=== PATIENT | female | born 1985 | race Caucasian/White ===

== ENCOUNTER 2017-02-14 14:53 | Emergency (ER) | payer SELFPAY ==
[2017-02-14 15:50] VITALS: BP 116/73
--- NOTE | 2017-02-18 15:08 | UC ---
Latanya Roland Erika, scribed for Keri Parada DO on 02/14/17 at 1615 . General HPI - HPI Summary HPI Summary: Patient is a 31-year-old female presenting to [facility] with a CC of RLQ abdominal pain s/p . Patient reports that she had an emergency by Dr. Mckeon on 02/07/2017 after the fetus's heart rate started to drop, and she states the baby did not survive. She states she has had RLQ pain since then, which has not changed. Patient reports that she removed the steristrips from her incision site after they soaked through with fluid. Two days ago, patient developed vaginal bleeding. She states she has been bleeding a few hours/day and has been passing clots, up to golf-ball sized. Patient reports she has been fatigued and under a lot of stress. She denies any other symptoms, including fever, chills, dizziness, ear ache, sore throat, SOB, cough, chest pain, nausea , vomiting, diarrhea, decreased appetite, and myalgias. Patient reports that she has been unable to contact her OB-Merit System Director at [facility] because they no longer work there. She states she has a follow up appointment with Dr. Whiting next week. She denies PMHx. She denies FHx HTN, diabetes, CAD. Patient smokes 1/ 2 PPD. - History of Current Complaint Stated Complaint: POST C SECT/BLOOD CLOTS Time Seen by Provider: 02/14/17 15:08 Hx Obtained From: Patient Onset/Duration: Sudden Onset - s/p surgery, Lasting Weeks - 1 week, Still Present Timing: Constant Onset Severity: Moderate Current Severity: Moderate Pain Intensity: 7 Pain Location at: RLQ Associated Signs & Symptoms: Positive: Other - vaginal bleeding. Negative: Cough, Chest Pain, Dizziness, Diarrhea, Decreased Oral Intake, Fever, Nausea, SOB, Vomiting - Allergy/Home Medications Allergies/Adverse Reactions: Allergies Allergy/AdvReac Type Severity Reaction Status Date / Time No Known Allergies Allergy Verified 03/25/16 16:51 Home Medications: Home Medications NK [No Home Medications Reported] 02/14/17 [History Confirmed 02/14/17] PMH/Surg Hx/FS Hx/Imm Hx Endocrine History Of: Denies: Diabetes Respiratory History Of: Reports: Asthma - As a child. Psychological History Of: Reports: Anxiety, Depression, Bipolar Disorder Cancer History Of: Denies: Lung Cancer, Colorectal Cancer, Breast Cancer, Prostate Cancer, Cervical Cancer Other History Of: Negative For: HIV, Hepatitis B, Hepatitis C, Anticoagulant Therapy - Surgical History Surgical History: Yes Surgery Procedure, Year, and Place: urinary stents x 4, insertions and removal, - Family History Known Family History: Negative: Cardiac Disease, Hypertension, Diabetes - Social History Occupation: Unemployed Alcohol Use: None Substance Use Type: Heroin, Marijuana Substance Use Comment - Amount & Last Used: last used 13 months ago Smoking Status (MU): Heavy Every Day Tobacco Smoker Type: Cigarettes Amount Used/How Often: 1/2 pack Review of Systems Constitutional: Fatigue Skin: Negative Eyes: Negative ENT: Negative Respiratory: Negative Cardiovascular: Negative Gastrointestinal: Abdominal Pain - RLQ Genitourinary: Other - Vaginal bleeding Motor: Negative Neurovascular: Negative Musculoskeletal: Negative Neurological: Negative Psychological: Negative All Other Systems Reviewed And Are Negative: Yes Physical Exam Triage Information Reviewed: Yes Appearance: Well-Appearing, No Pain Distress, Well-Nourished Vital Signs: Initial Vital Signs Temp 98.9 F 02/14/17 15:38 Pulse 79 02/14/17 15:38 Resp 18 02/14/17 15:38 BP 116/73 02/14/17 15:38 Pulse Ox 98 02/14/17 15:38 Vital Signs Reviewed: Yes Eyes: Positive: Conjunctiva Clear. Negative: Discharge ENT: Positive: Hearing grossly normal. Negative: Muffled/hoarse voice Neck: Positive: Supple, Nontender Respiratory: Positive: Lungs clear, Normal breath sounds, No respiratory distress, No accessory muscle use Cardiovascular: Positive: RRR, No Murmur Abdomen Description: Positive: Other: - Tender RLQ. Incision is clean, dry, with no erythema, no swelling, no drainage and no dehiscence. Pelvic exam: Lots of blood in the vaginal vault coming from the os. Pt tender with the exam Bowel Sounds: Positive: Present Musculoskeletal Exam: Normal Neurological: Positive: Alert, Muscle Tone Normal Psychological Exam: Normal Psychological: Positive: Age Appropriate Behavior Skin Exam: Other - Warm, dry, normal color Re-Evaluation - Re-Evaluation First Eval Re-Evaluation Time: 17:05 Comment: Discussed need for transfer. Patient requests transfer by private car to the [facility]. Course/Dx - Differential Dx - Multi-Symptom Provider Diagnoses: vaginal bleeding, rlq pain of unknown virgilio - Physician Notifications Discussed Patient Care With: Kirsty OB-Merit System Director at 16:20 - call out to consult. They will call back. Kirsty OB-Merit System Director at 16:44 - called again for consult after no call was returned. Dr. Whiting (OB-Merit System Director) at 16:50 - Reports that he followed up with the patient and the emergency was due to patient using suboxone she bought on the street. Recommends transfer to the ED for stat H&H and ultrasound. GYMNASIUM TEACHER Dela Cruz for Dr. Reyes at 16:58 - states Dr. Reyes does not do OB and recommends speaking with Dr. Bashir. Left a message for Dr. Bashir at 17: 00 stating pt is a likely transfer to [facility]. Dr. Beck ([facility]) at 17:05 - accepts for transfer. Dr. Bashir at 17:34 - notified Dr. Bashir of patient's decision to go to the [facility]. Discharge - Discharge Plan Condition: Stable Disposition: AGAINST MEDICAL ADVICE Discharge Disposition Comment: To the [facility] ED by private car Referrals: Jere Washington,[facility] [Primary Care Provider] - The documentation as recorded by the Latanya sommer Erika accurately reflects the service I personally performed and the decisions made by me, Keri Parada DO.
== END 2017-02-14 17:27 | disposition left against medical advice (07) ==
LOC: UCEAST 14:53
DX: N93.8 Other specified abnormal uterine and vaginal bleeding (principal); Z53.21 Procedure and treatment not carried out due to patient leaving prior to being seen by health care provider
CPT/HCPCS: 81003; 84702; 99213; G0463

== ENCOUNTER 2018-03-20 03:27 | Emergency (ER) | payer MEDICAID ==
[2018-03-20] MEDS ORDERED: Clindamycin CAP* 150 MG ONE (04:04)
[2018-03-20] MEDS ORDERED: Clindamycin CAP* 150 MG PO ONE (04:31)
[2018-03-20 04:53] VITALS: BP 138/93
--- NOTE | 2018-03-20 07:08 | ED ---
José Miguel Roland Nilda, scribed for Gavin Vaz MD on 03/20/18 at 0445 . Skin Complaint - HPI Summary HPI Summary: This patient is a 32 year old F presenting to [facility] accompanied by mother with a chief complaint of constant erythematous, painful abscess on left upper arm for the past few days. Pt has Hx of IV drug abuse (currently Sonal). She states she was taken to [facility] s/p overdose 5-6 days ago. Pt notes she was kept at [facility] for 3 days where she was given IV abx since pt was found to have fever (104 F) and abscess. She notes she was to have surgery for abscess but was thrown out of hospital yesterday when she left building to smoke with my mother. The patient rates the aching pain 6/10 in severity. Symptoms aggravated by palpation and alleviated by ibuprofen. NKDA. LNMP is 4 days ago. - History of Current Complaint Chief Complaint: EDRashSkinAbscess Stated Complaint: ABSCESS ON LEFT ARM Hx Obtained From: Patient Hx Last Menstrual Period: 4 days ago Onset/Duration: Started Days Ago, Still Present Timing: Constant, Lasting Days Current Severity: Moderate Pain Intensity: 6 Pain Scale Used: 0-10 Numeric Skin Location: Arm - left upper arm Character: Swelling, Pain, Redness Aggravating Symptom(s): Touch Alleviating Symptom(s): Nothing Associated Signs & Symptoms: Fever Related History: Other: - IV drug abuse - Allergy/Home Medications Allergies/Adverse Reactions: Allergies Allergy/AdvReac Type Severity Reaction Status Date / Time No Known Allergies Allergy Verified 03/25/16 16:51 PMH/Surg Hx/FS Hx/Imm Hx Endocrine/Hematology History: Denies: Hx Anticoagulant Therapy, Hx Diabetes, Hx Thyroid Disease Cardiovascular History: Denies: Hx Congestive Heart Failure, Hx Deep Vein Thrombosis, Hx Hypertension , Hx Myocardial Infarction, Hx Pacemaker/ICD Respiratory History: Reports: Hx Asthma - As a child. Denies: Hx Chronic Obstructive Pulmonary Disease (COPD), Hx Lung Cancer, Hx Pneumonia, Hx Pulmonary Embolism GI History: Denies: Hx Gall Bladder Disease, Hx Gastrointestinal Bleed, Hx Ulcer, Hx Urosepsis History: Denies: Hx Kidney Stones, Hx Renal Disease Neurological History: Denies: Hx Dementia, Hx Migraine, Hx Seizures, Hx Transient Ischemic Attacks (TIA) Psychiatric History: Reports: Hx Anxiety, Hx Depression, Hx Bipolar Disorder, Hx Substance Abuse Denies: Hx Schizophrenia - Surgical History Surgery Procedure, Year, and Place: urinary stents x 4, insertions and removal, Infectious Disease History: Denies: History Other Infectious Disease, Traveled Outside the [place] in Last 30 Days - Family History Known Family History: Positive: Other - NONCONTRIBUTORY Negative: Cardiac Disease, Hypertension, Diabetes - Social History Alcohol Use: None Substance Use Type: Reports: Heroin, Marijuana Substance Use Comment - Amount & Last Used: states used 4 days ago Hx Tobacco Use: Yes Smoking Status (MU): Heavy Every Day Tobacco Smoker Type: Cigarettes Amount Used/How Often: 1/2 pack Review of Systems Positive: Fever Positive: Other - eythematous, painful abscess on left upper arm All Other Systems Reviewed And Are Negative: Yes Physical Exam - Summary Physical Exam Summary: Appearance: Well appearing, no pain distress Skin: warm, dry, reflects adequate perfusion, Track torres both arms. Area of redness on the radial surface on distal upper arm. Area of several track torres and slight induration in the AC area. Bedside US, per Dr. Vaz, reveals 0.5 cm area of fluid 1.5 cm deep in the left axilla that is not pulsatile. Cobblestoning of the tissues locally. Head/face: normal Eyes: EOMI, RONEL ENT: normal Neck: supple, non-tender Respiratory: CTA, breath sounds present Cardiovascular: RRR, pulses symmetrical Abdomen: non-tender, soft Bowel Sounds: present Musculoskeletal: normal, strength/ROM intact Neuro: normal, sensory motor intact, A&Ox3 Triage Information Reviewed: Yes Vital Signs On Initial Exam: Initial Vitals Temp Pulse Resp BP Pulse Ox 98.8 F 89 20 138/93 97 03/20/18 04:51 03/20/18 04:51 03/20/18 04:51 03/20/18 04:51 03/20/18 04:51 Vital Signs Reviewed: Yes Procedures - Procedure Summary Procedure Summary: I&D of abscess on left upper arm: 5 ccs lido 1%. Visualized with US. Cleaned with chlorhexidine and betadine. Site wouldnt aspirate. Sliced with 11 guage scalpel. Attempted aspiration again but still would not aspirate. - Incision and Drainage Site: left upper arm Anesthesia: Lidocaine Instrument(s): Scalpel, Needle Packing: Other - none. aspiration unsuccessful. Diagnostics - Vital Signs Vital Signs Temp Pulse Resp BP Pulse Ox 03/20/18 04:51 98.8 F 89 20 138/93 97 - Laboratory Lab Statement: Any lab studies that have been ordered have been reviewed, and results considered in the medical decision making process. - Additional Comments Diagnostic Additional Comments: Bedside US, per Dr. Vaz, reveals 0.5 cm area of fluid 1.5 cm deep in the left axilla that is not pulsatile. Cobblestoning of the tissues locally. Re-Evaluation - Re-Evaluation First Eval Change: Improved Course/Dx - Course Course Of Treatment: pt with heavy IV drug use, multitude of tract torres. Obvious cellulitis in the L upper arm confirmed on bedside US. There is a small area of free fluid in the AC area. Pt states she had "surgery" there, but she has no incision site. It's possible she had needle aspiration. No fever. I attempted to needle drain (without success) and open I&D. This is deeper and would not drain. I then attempted needle aspiration with real time US guidance. Area still would not drain. Peripheral IV access on this pt is impossible, with no unused peripheral veins. She is not ill appearing and had been hospitalized on abx for the cellulitis. She was loaded on Clindamycin and will be cont on same. Close f/u. Has pending admission to drug rehab (she injects synthetic amphetamines) in [place]. - Diagnoses Provider Diagnoses: IV drug abuse, Phlebitis, Cellulitis of left upper arm Discharge - Sign-Out/Discharge Documenting (check all that apply): Discharge/Admit/Transfer - Discharge Plan Condition: Good Disposition: HOME Prescriptions: Clindamycin Cap(NF) [Clindamycin Cap 300 mg Cap(NF)] 300 mg PO Q6H #30 cap Patient Education Materials: Cellulitis (ED), Phlebitis (ED) Referrals: [facility] [Outside] Additional Instructions: Do not use drugs by injection, especially in the site of infection. Return with increased redness, warmth, high fever, vomiting or other concerns. Warm compresses on the area every hour all day long. Go to drug rehabilitation when available. - Billing Disposition and Condition Condition: GOOD Disposition: HOME The documentation as recorded by the José Miguel sommerSenia accurately reflects the service I personally performed and the decisions made by me, Gavin Vaz MD.
== END 2018-03-20 04:53 | disposition home or self-care (01) ==
LOC: ED 03:27
DX: L02.414 Cutaneous abscess of left upper limb (principal); F19.10 Other psychoactive substance abuse, uncomplicated; I80.8 Phlebitis and thrombophlebitis of other sites; F17.210 Nicotine dependence, cigarettes, uncomplicated
CPT/HCPCS: 10060; 99282; A9270-GY

== ENCOUNTER 2018-06-13 16:46 | Inpatient (IN) | payer MEDICAID ==
--- NOTE | 2018-06-13 18:14 | ED ---
Lower Extremity - HPI Summary HPI Summary: This is scribe Alistair Kim documenting for attending Dr. Raul Lopez MD. This patient is a 33 year old F presenting to [facility] accompanied by a male with a chief complaint of left leg infection since 5 days ago. Pt reports she uses intravenous drugs in this foot. The patient rates the pain 7/10 in severity. Symptoms aggravated by movement of the foot. Patient reports severe edema of the left foot, erythema, erythema on her right hip, and difficulty ambulating. I, Dr. Lopez, personally performed the services described in this documentation as scribed in my presence and it is both accurate and complete. - History of Current Complaint Chief Complaint: EDExtremityLower Stated Complaint: LT FT ABSCESS Time Seen by Provider: 06/13/18 18:05 Hx Obtained From: Patient Hx Last Menstrual Period: 4 days ago Onset of Pain: Immediate Onset/Duration: Days - 4 Severity Currently: Severe Pain Intensity: 7 Pain Scale Used: 0-10 Numeric Timing: Constant Location: Is Discrete @ - left foot Associated Signs And Symptoms: Positive: Swelling, Redness Aggravating Factor(s): Standing, Ambulation, Weight Bearing - Allergies/Home Medications Allergies/Adverse Reactions: Allergies Allergy/AdvReac Type Severity Reaction Status Date / Time No Known Allergies Allergy Verified 06/13/18 18:45 Home Medications: Home Medications NK [No Home Medications Reported] 06/13/18 [History Confirmed 06/13/18] PMH/Surg Hx/FS Hx/Imm Hx Endocrine/Hematology History: Denies: Hx Anticoagulant Therapy, Hx Diabetes, Hx Thyroid Disease Cardiovascular History: Denies: Hx Congestive Heart Failure, Hx Deep Vein Thrombosis, Hx Hypertension , Hx Myocardial Infarction, Hx Pacemaker/ICD Respiratory History: Reports: Hx Asthma - As a child. Denies: Hx Chronic Obstructive Pulmonary Disease (COPD), Hx Lung Cancer, Hx Pneumonia, Hx Pulmonary Embolism GI History: Denies: Hx Gall Bladder Disease, Hx Gastrointestinal Bleed, Hx Ulcer, Hx Urosepsis History: Denies: Hx Kidney Stones, Hx Renal Disease Neurological History: Denies: Hx Dementia, Hx Migraine, Hx Seizures, Hx Transient Ischemic Attacks (TIA) Psychiatric History: Reports: Hx Anxiety, Hx Depression, Hx Bipolar Disorder, Hx Substance Abuse Denies: Hx Schizophrenia - Surgical History Surgery Procedure, Year, and Place: urinary stents x 4, insertions and removal, Infectious Disease History: No Infectious Disease History: Denies: History Other Infectious Disease, Traveled Outside the [place] in Last 30 Days - Family History Known Family History: Positive: Other - NONCONTRIBUTORY Negative: Cardiac Disease, Hypertension, Diabetes - Social History Alcohol Use: None Substance Use Type: Reports: Heroin, Marijuana Substance Use Comment - Amount & Last Used: states used 4 days ago Hx Tobacco Use: Yes Smoking Status (MU): Heavy Every Day Tobacco Smoker Type: Cigarettes Amount Used/How Often: 1/2 pack Review of Systems Positive: Decreased ROM - left foot, Edema - left foot Positive: Rash - left foot All Other Systems Reviewed And Are Negative: Yes Physical Exam - Summary Physical Exam Summary: Appearance: The patient is well-nourished in no acute distress and in no acute pain. Skin: The skin is warm and dry and skin color reflects adequate perfusion. Right foot is blistered and erythematous on the dorsal aspect with streaking usp up the anterior lower leg. She has an additional erythematous area over her RLQ which is likely abscess and another area on the dorsum of her right hand. HEENT: The head is normocephalic and atraumatic. The pupils are equal and reactive. The conjunctivae are clear and without drainage. Nares are patent and without drainage. Mouth reveals moist mucous membranes and the throat is without erythema and exudate. The external ears are intact. The ear canals are patent and without drainage. The tympanic membranes are intact. Neck: The neck is supple with full range of motion and non-tender. There are no carotid bruits. There is no neck vein distension. Respiratory: Chest is non-tender. Lungs are clear to auscultation and breath sounds are symmetrical and equal. Cardiovascular: Heart is tachycardic. There is no murmur or rub auscultated. There is no peripheral edema and pulses are symmetrical and equal. Abdomen: The abdomen is soft and non-tender. There are normal bowel sounds heard in all four quadrants and there is no organomegaly palpated. Musculoskeletal: There is no back tenderness noted. Extremities are non-tender with full range of motion. There is good capillary refill. There is no calf tenderness elicited. Right foot is swollen and erythematous. Neurological: Patient is alert and oriented to person, place and time. The patient has symmetrical motor strength in all four extremities. Cranial nerves are grossly intact. Deep tendon reflexes are symmetrical and equal in all four extremities. She is in constant motion, picking at her skin and generally irritable. Psychiatric: The patient is anxious and easily angered. Triage Information Reviewed: Yes Vital Signs On Initial Exam: Initial Vitals Temp Pulse Resp BP Pulse Ox 100.8 F 115 15 137/80 97 06/13/18 17:01 06/13/18 17:01 06/13/18 17:01 06/13/18 17:01 06/13/18 17:01 Vital Signs Reviewed: Yes Procedures - Central Line Right Jugular Central Line Lumen: triple Central Line Procedure: betadine prep, sterile drapes applied, sterile dressing applied Central Line Position: internal jugular (R) Anesthesia: Lidocaine cc's of anesthesia: 1 Complications: none Central Line Post Position: sutured, good blood return - Intubation Intubation Method: orotracheal Tube Size (cm): 7.5 Medications: Succinylcholine Breath Sounds after Intubation: equal Intubation Complications: no complications Diagnostics - Vital Signs Vital Signs Temp Pulse Resp BP Pulse Ox 06/13/18 17:01 100.8 F 115 15 137/80 97 - Laboratory Result Diagrams: 06/14/18 06:28 06/14/18 06:28 Lab Statement: Any lab studies that have been ordered have been reviewed, and results considered in the medical decision making process. - Ultrasound No standard instances Ultrasound Interpretation Completed By: Radiologist - At the interface of the subcutaneous tissue plane and extensor tendon sheaths there is a 3.2 x 1.5 x 3.8 cm loculated heterogeneous echogenicity complex fluid collection with mild marginal hyperemia most consistent with an early abscess collection given the clinical context. #. Soft tissue edema throughout the visualized foot most consistent with cellulitis given the clinical context. ED Physician has reviewed this report Lower Extremity Course/Dx - Course Course Of Treatment: Ms Doyle presented to the emergency department with obvious cellulitis and probable abscesses. She met septic criteria as she was febrile and tachycardic. She had a difficult and complicated course in the emergency department. She has a history of PTSD and secondary agoraphobia as well as anxiety and depression. She admits to using IV MDMA on a daily basis and then using IV benzodiazepines to sleep at night. The IV sympathomimetic is at least contributing to if not completely responsible for her tachycardia. It also has her in nonstop motion. She is constantly picking at her skin and moving with jerking motions randomly. She was unable to voluntarily hold still. She was also quite labile and quick to anger. The nursing staff had a great deal of difficulty initiating peripheral IV and she "fired" her primary nurse. Eventually an IV was established in her right wrist and blood was drawn. Fluids and antibiotics were ordered and her white blood cell count returned at 15. At this point she definitely meets septic criteria although I'm still not clear whether her tachycardia is from the drugs or not. The hospitalists were consulted for admission and requested a central line. She was given Ativan for her anxiety and Dilaudid for the pain in her foot but was unable to hold still enough to have an IJ safely placed. She absolutely refused to have a femoral line. She did want a right EJ stating that that's the only vein she can still use reliably. She was unable to hold still enough to consider an EJ to be a safe procedure also. She was given IV Haldol which did allow her to relax a bit but she still continued with involuntary twitching and random movement. Although her vital signs did not vary, it became very concerning that we were unable to give her fluids and antibiotics appropriately for her burgeoning sepsis and that she was not in control of herself enough to hold still. After mild sedating she became even more difficult to deal with as she lost what little rationality she had had. I consulted with Dr. Ibarra and and the nursing supervisor stave finishing Eugenia Vergara who is a nurse practitioner and we agreed that that it was unconscionable to allow her to continue without fluids and antibiotics and that, because of the drugs and her underlying psychiatric issues she was unable to cooperate with therapy, and therefore the decision was made to intubate and sedate her. It was my estimation that conscious sedation would not of solve the problem of her constant movement and agitation. She was given 20 mg of etomidate IV and this made no difference in her condition whatsoever. Therefore she was given succinylcholine 100 mg IV and within a few minutes achieved paralysis. She was easily intubated subsequent to that. The paralytic wore off within 2-3 minutes and in spite of bolusing and starting a drip of propofol she was again back to her baseline of constant movement and agitation although she was clearly sedated. She was therefore given additional succinylcholine for the placement of the IJ which was placed under aseptic conditions. She was turned over to Dr. Ibarra with chest x-ray pending to check for ET tube placement. Additionally the IJ line had been inserted to 16 cm and I was concerned that that may be in her right atrium. She had been kept on a monitor for the procedure and there was no ectopy. She was finally receiving IV fluids and antibiotics when transported to the ICU. - Diagnoses Provider Diagnoses: Cellulitis and abscess of foot, Sepsis affecting skin, Sympathomimetic adverse reaction, IVDU (intravenous drug user) - Physician Notifications Discussed Care Of Patient With: Martin Ibarra Time Discussed With Above Provider: 19:00 Instructed by Provider To: Admit As Inpatient - Critical Care Time Critical Care Time: 75-104 min - Much of the time was spent counseling the patient to attempt to get her to agree to the various therapies. Discharge - Sign-Out/Discharge Documenting (check all that apply): Patient Departure - admit - Discharge Plan Condition: Good Disposition: ADMITTED TO [facility] - Billing Disposition and Condition Condition: GOOD Disposition: Admitted to [facility]
--- NOTE | 2018-06-13 19:26 | RAD ---
Indication: IV drug user with LEFT foot swelling for 3 days. Assess for abscess. Comparison: No relevant prior exams available on the [facility] PACS for comparison.. Technique: Musculoskeletal ultrasound. Ultrasound of the volar aspect of the foot corresponding with the region of swelling.. REPORT AND IMPRESSION: #. At the interface of the subcutaneous tissue plane and extensor tendon sheaths there is a 3.2 x 1.5 x 3.8 cm loculated heterogeneous echogenicity complex fluid collection with mild marginal hyperemia most consistent with an early abscess collection given the clinical context. #. Soft tissue edema throughout the visualized foot most consistent with cellulitis given the clinical context.
[2018-06-13 20:08] LABS: Urine Appearance Cloudy; Urine Blood Negative (Negative); Urine Color Amber; Urine Ketones 1+ (Negative); Urine Protein 2+(100 mg/dL) (Negative); Urine Red Blood Cell 3+(>10/hpf) (Absent); Urine Specific Gravity 1.019 (1.010-1.030); Urine Urobilinogen Positive (Negative); Urine White Blood Cell 3+(>20/hpf) (Absent)
[2018-06-13 20:44] LABS: ABS Basophils 0.1 10^3/ul (0-0.2); ABS Eosinophils 0.1 10^3/ul (0-0.6); ABS Lymphocytes 2.3 10^3/ul (1.0-4.8); ABS Monocytes 1.1 10^3/ul (0-0.8); ABS Nucleated RBC 0 10^3/ul; Eosinophil % 0.8 % (0-6); Hematocrit 37 % (35-47); Hemoglobin 12.3 g/dl (12.0-16.0); Lymphocyte % 14.9 % (25-47); Mean Corpuscular HGB Conc 34 g/dl (31-36); Mean Corpuscular Hemoglobin 29 pg (27-31); Mean Corpuscular Volume 87 fL (80-97); Nucleated Red Blood Cells % 0; Platelet Count 209 10^3/ul (150-450); Red Cell Distribution Width 15 % (10.5-15); White Blood Count 15.6 10^3/ul (3.5-10.8)
[2018-06-13 20:59] LABS: INR 1.06 (0.77-1.02)
[2018-06-13] MEDS ORDERED: Cefepime(*) 1 GM in NS 0.9% 50 ML* 50 ML IVPB ONE (21:03)
[2018-06-13] MEDS ORDERED: Vancomycin(*) 1,000 MG in NS 0.9% 250 ML* 250 ML IVPB ONE (21:03)
[2018-06-13] MEDS ORDERED: NS 0.9% 50 ML* 50 ML ONE (21:11)
[2018-06-13] MEDS ORDERED: Cefepime 1 GM in Dextrose(*) 1 GM/50 ML BAG IV ONE (21:16)
[2018-06-13] MEDS ORDERED: LORazepam INJ* 2 MG/ML 1 ML VIAL IV PUSH ONE ×2 (21:34→21:41)
[2018-06-13] MEDS ORDERED: HYDROmorphone INJ* 1 MG/ML CARPUJECT SYRINGE IV SLOW PU PRN (21:34)
[2018-06-13] MEDS ORDERED: diPHENhydraMINE IV* 50 MG/ML 1 ml VIAL (BENADRYL) IV ONE (21:40)
[2018-06-13] MEDS ORDERED: Vancomycin per Pharmacy* NOTE FOLLOW UP PRN (22:01)
[2018-06-13] MEDS ORDERED: LORazepam INJ* 2 MG/ML 1 ML VIAL IM ONE (22:16)
[2018-06-13] MEDS ORDERED: NS 0.9% 1000 ML*IV.FLUID IV ONE (22:21)
[2018-06-13] MEDS ORDERED: Vancomycin(*) 1,250 MG in NS 0.9% 250 ML* 250 ML IVPB ONE (22:30)
[2018-06-13] MEDS ORDERED: Haloperidol INJ IV/IM* 5 MG/ML AMP IV SLOW PU ONE (23:02)
[2018-06-13] MEDS: Cefepime 2 GM in Dextrose(*) 2 GM/50 ML BAG IV SCH (23:30)
[2018-06-13] MEDS ORDERED: Etomidate* 2 MG/ML 20 ML VIAL (40 MG) ONE (23:40)
[2018-06-13] MEDS ORDERED: Succinylcholine* 20 MG/ML 10 ML VIAL ONE (23:40)
[2018-06-13] MEDS ORDERED: Rocuronium* 10 MG/ML VIAL ONE (23:40)
[2018-06-13] MEDS ORDERED: Propofol* 100 ML ONE (23:58)
[2018-06-14] MEDS: Propofol* 100 ML IV SCH ×7 (00:45→21:00)
--- NOTE | 2018-06-14 01:11 | HP ---
CC: Dr. Guerra* HISTORY AND PHYSICAL: DATE OF ADMISSION: 06/13/18 PRIMARY CARE PROVIDER: None. ATTENDING PHYSICIAN WHILE IN THE HOSPITAL: Dr. Martin Ibarra* (report dictated by Fady Bacon NP). CONSULTING ORTHOPEDIST: Dr. Guerra. CHIEF COMPLAINT: Left ankle swelling. HISTORY OF PRESENT ILLNESS: Mrs. Doyle is a 33-year-old female patient who has a history of bipolar, depression, anxiety. She has a history of IV drug use. She freely admits that she uses IV MDMA on a daily basis. She comes in to our emergency department today stating that 4 or 5 days ago, she tried shooting up in her left ankle. Subsequently then, it was red and then over the last 4 or 5 days, it has progressively gotten worse and last night, it was significantly worse than today. The patient does have agarophobia she says and she was fearful for her to come out to the ER to be evaluated, but the pain became too much. The ankle was swollen, red, hot. She was having trouble dorsiflexing and plantarflexing and doing inversion and eversion. She said that it was painful to even move her toes. She was stating that the swelling was just getting too much and it was too painful and she was having fevers and chills. She also noted that she developed a what she describes as it looks like another abscess to her right abdominal wall. She came into the emergency department today. She was evaluated. In the ED, it was noted that she did appear to be septic. The ultrasound did exhibit an abscess. We were asked to evaluate for admission because of the sepsis and the infection. She denied having any chest pain, shortness of breath, or any nausea or vomiting. PAST MEDICAL HISTORY: Significant for: 1. Bipolar. 2. Depression. 3. Anxiety. 4. Agarophobia. PAST SURGICAL HISTORY: She has had ureteral stent placements. She has had I and Ds in the past. MEDICATIONS: Home meds are denied, although she does state that she gets 2 mg of Xanax off the streets. ALLERGIES TO MEDICATIONS: Include no known drug allergies. FAMILY HISTORY: Her father had hypertension, hyperlipidemia and her mother is healthy. SOCIAL HISTORY: She does smoke cigarettes. She does smoke marijuana. She injects MDMA on a daily basis. She does not drink alcohol. Surrogate decision maker is her father. REVIEW OF SYSTEMS: There is a documented fever here. She denies having any significant weight change. No double vision. No ear discharge. No rhinorrhea. No sore throat. No thyroid enlargement. She denies having any chest pain. There is no orthopnea. There is no nocturnal dyspnea. She denies having any abdominal pain. There was no nausea, no vomiting, no dysuria, no frequency, no seizure, no loss of consciousness, no pruritus and no skin ulcerations. Review of 14 systems was completed, all others negative. PHYSICAL EXAMINATION GENERAL: At this time, Mrs. Doyle is a 33-year-old female patient. She is chronically ill appearing. She appears to be older than state age. VITAL SIGNS: Blood pressure 137/80, pulse of 115, respirations 15, and O2 sat 97%, temperature of 100.8. HEENT: Head is atraumatic and normocephalic. Eyes: EOMs are intact. Sclerae anicteric and not pale. Throat: Oral mucosa appears to be dry. No oropharyngeal erythema. NECK: Supple. LUNGS: Clear to auscultation bilaterally. No wheezes, rales, or rhonchi. HEART: Sounds S1, S2 at regular rate and rhythm. No murmurs, rubs, or gallops. ABDOMEN: Soft. It was flat, nontender. Bowel sounds were present. EXTREMITIES: Pulses were 2+. The pedal pulse on the right foot was dopplerable. Sensation and CSM checks were intact. At this point, she is unable to plant and dorsiflex due to discomfort and pain. She is unable to flex and extend the toes as well due to swelling. NEUROLOGICAL: The patient is awake, alert, and oriented x3. There is no gross focal deficit. SKIN: Grossly intact. DIAGNOSTIC STUDIES/LAB DATA: Labs revealed WBC of 15.6, RBC of 4.20, hemoglobin 12.3, hematocrit 37, platelet count of 209. INR 1.06, PTT of 29.7. Sodium 136, potassium pending, chloride of 104, bicarb 24, BUN 7, creatinine of 0.54, glucose 117, lactate 1.1, calcium 8.8. Total bili 0.9, ALT 12, . Troponin was 0.03. CRP 154. Beta-hCG is pending. Albumin was 3.6. Urine showed 2+ protein, 1+ ketones, 2+ leukocyte esterase, 3+ wbc's. She had a soft tissue ultrasound, which showed at the interface of subcutaneous tissue plane and extensor tendon sheath, there is a 3.2 x 1.5 x 3.8 cm loculated heterogenous echogenicity complex fluid collection with the mild marginal hyperemia most consistent with an early abscess collection given this clinical context. Soft tissue swelling throughout the visualized foot, most consistent with cellulitis given the clinical context. Old medical records were reviewed. ASSESSMENT AND PLAN: Mrs. Doyle is a 33-year-old female patient coming into the emergency department today with complaints of a red, swollen left ankle. Evaluation found to be septic. She will be admitted under inpatient status for: 1. Sepsis secondary to cellulitis, left ankle abscess, possible septic joint. I did touch base with Dr. Guerra. I explained to him the patient's situation. He will be evaluating the patient tomorrow first thing in the morning for incision and drainage. I did order an MRI, which will be done first thing in the morning as well. We will give the patient 30 cc/kg of fluid. We will also give the patient cefepime and vanco. I did explain to the patient that given the fact that she has waited this long to treat the infection, she may have permanent damage to that joint. I also explained to her that again, the sepsis is quite severe. I have explained to her that I am concerned for possible endocarditis given the fact she has another abscess to the right side of her stomach. She said she did not try shooting up there, so I have also ordered an echo and blood cultures. Unfortunately, we are having a hard time with IV access on this patient. We are unable to get blood cultures. I am requesting the ED place the central line, so that we can get access to the patient, give her the appropriate antibiotics, which I have not been given yet and bolus her appropriately. Fortunately, she is not in septic shock, but she is certainly septic. As soon as, we have appropriate IV access, we will certainly give 30 cc /kg of fluid, normal saline though will then be given at 125 an hour. I will give the patient vancomycin and cefepime. 2. History of anxiety. I will continue with Ativan p.r.n. 3. History of bipolar, depression. We will need to establish a primary care physician for her, but for the time being, we will continue with supportive care. 4. History of agarophobia. Continue with supportive care. 5. DVT prophylaxis. I have ordered heparin subcu. 6. Code status. Full code. 7. Fluids, electrolytes, and nutrition. She is n.p.o. diet. TIME SPENT: Time spent on the admission was 60 minutes, greater than half the time was spent [id number] with the patient obtaining my history and physical, other half time was spent going over the plan of care with the patient and implementing the plan of care. I did discuss the plan of care with my attending, Dr. Ibarra, he is in agreement. FADY BACON, CHRISTY [id number]/[facility] #: [id number] MTDKelly
[2018-06-14] MEDS ORDERED: HYDROmorphone INJ* 0.5 MG/0.5 ML SYRINGE ONE (02:18)
[2018-06-14] MEDS: fentaNYL PCA* 20 ML PCA SCH (02:28)
[2018-06-14] MEDS: LORazepam INJ* 2 MG/ML 1 ML VIAL IV PUSH PRN (02:28)
[2018-06-14] MEDS: NS 0.9% 1000 ML* 1,000 ML IV SCH ×2 (02:39→18:08)
[2018-06-14] MEDS: Chlorhexidine MOUTHWASH 0.12%* 15 ML UDC TOPICAL SCH ×7 (02:51→23:49)
[2018-06-14] MEDS: Ondansetron INJ* 2 MG/ML VIAL IV SCH ×7 (04:43→21:38)
[2018-06-14] MEDS: Heparin VIAL(*) 5000 UNITS/ML VIAL (FIVE THOUSAND) SUBCUT SCH ×4 (04:43→21:38)
--- NOTE | 2018-06-14 05:31 | PN ---
Progress Note - Progress Note Date of Service: 06/14/18 Note: ED was unable to obtain stable vascular access after 7hours. Initially, a small peripheral IV was obtained in the hand, but this was tenuous and failed prior to admission. Other peripheral access was unobtainable 2nd mixture of intravascular volume depletion and poor venous access sites 2nd chronic IV drug abuse/addiction. No [place] qualified IV nurse was available in-house. Dr Lopez ED made earnest effort to obtain central access via an IJ. However, despite sedating Mrs Doyle to the point she was asleep was ineffective. As soon as she was attempted to be prepped with betadyne, she would flail and become unable to be safely controlled for the procedure. 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 I discussed the requirement of this with her male friend in cindy terms who expressed understanding and agreed with proceeding. As such, Dr Lopez obtained an airway followed by R IJ access. Her fluid bolus & IV ABXs were then able to be promptly initiated and she was transferred to the ICU. Once in the ICU, her ET tube required advancement by 1cm and her R IJ tip was significantly intra-cardiac. Via sterile technique, her triple lumen catheter sutures were clipped. It was withdrawn by ~4cm and re-sutured. Recheck CXR confirmed appropriate placement of ET, R IJ, & NG. Critical care time: 35minutes
[2018-06-14] MEDS: Vancomycin(*) 1,000 MG in NS 0.9% 250 ML* 250 ML IVPB SCH ×4 (06:13→23:53)
[2018-06-14 06:43] LABS: ABS Basophils 0 10^3/ul (0-0.2); ABS Eosinophils 0.2 10^3/ul (0-0.6); ABS Lymphocytes 1.9 10^3/ul (1.0-4.8); ABS Monocytes 0.7 10^3/ul (0-0.8); ABS Neutrophils 7.6 10^3/ul (1.5-7.7); ABS Nucleated RBC 0 10^3/ul; Eosinophil % 1.9 % (0-6); Hematocrit 31 % (35-47); Hemoglobin 10.7 g/dl (12.0-16.0); Lymphocyte % 18.5 % (25-47); Mean Corpuscular HGB Conc 34 g/dl (31-36); Mean Corpuscular Hemoglobin 30 pg (27-31); Mean Corpuscular Volume 87 fL (80-97); Mean Platelet Volume 9.9 um3 (7.4-10.4); Nucleated Red Blood Cells % 0; Platelet Count 153 10^3/ul (150-450); Red Blood Count 3.61 10^6/ul (4.00-5.40); Red Cell Distribution Width 15 % (10.5-15); White Blood Count 10.5 10^3/ul (3.5-10.8)
[2018-06-14 06:48] LABS: INR 1.08 (0.77-1.02)
[2018-06-14 07:00] LABS: EGFR Non-African American 152.6 (>60)
--- NOTE | 2018-06-14 07:43 | RAD ---
INDICATION: Intubation central venous catheter placement. COMPARISON: Comparison is made with a prior chest x-ray study from October 01, 2016. TECHNIQUE: A portable view of the chest was obtained. FINDINGS: The patient is status post intubation. The endotracheal tube tip projects over the midline at the level of the clavicular heads. There is a central venous catheter entering from the right jugular approach. The catheter tip projects overlying the right atrium. There is a nasogastric tube which demonstrates normal course. The catheter tip projects below the left hemidiaphragm in the left upper quadrant. The heart is within normal limits in size. The lungs are clear. No pleural effusion or pneumothorax is seen. IMPRESSION: STATUS POST INTUBATION, CENTRAL VENOUS AND NASOGASTRIC TUBE PLACEMENTS. CLEAR LUNGS, NO EVIDENCE FOR PNEUMOTHORAX.
--- NOTE | 2018-06-14 08:02 | RAD ---
INDICATION: Check ET NG and central line placement. COMPARISON: Comparison is made with a prior study from approximately 3 hours earlier. TECHNIQUE: A portable view of the chest was obtained. FINDINGS: The patient is status post intubation. The endotracheal tube tip projects over the midline at the level of the clavicular heads and appears unchanged. There is a nasogastric tube which demonstrates normal course. The catheter projects in the left upper quadrant and off the film. There is a central venous catheter present on the right side. The catheter has been pulled back slightly. The catheter tip projects over the region of the superior vena cava just proximal to the right atrium. The heart is within normal limits in size. The lungs are clear. No pleural effusion is seen. IMPRESSION: THE PATIENT'S CENTRAL LINE HAS BEEN PULLED BACK SLIGHTLY, THERE IS OTHERWISE NO SIGNIFICANT CHANGE FROM THE PRIOR STUDY. R1
--- NOTE | 2018-06-14 09:26 | CONS ---
CONSULTATION REPORT: DATE OF CONSULT: 06/14/18 HISTORY OF PRESENT ILLNESS: Mary came in last night. She is a 33-year-old female who had been injecting IV drugs. She missed in her left foot, developed a huge abscess primarily over the dorsal aspect somewhere lasting for the last 3 to 4 days. She does have a history of bipolar depression and anxiety as well. Evidently in the emergency room, they had difficulty getting IV access and then during a period of time when the patient was not closely observed, perhaps there was an attempt to inject further drugs. At any rate the IV access was lost because of the patient's noncompliance. She required intubation and a central line being placed. She is currently intubated in the ICU and will need to have aggressive debridement of a large abscess on her left ankle area. She did show signs of sepsis on admission to the emergency room. The patient, as far as we know, has a history of bipolar, depression, anxiety, and agoraphobia. She has been largely healthy as far as we know, we are not certain if there are any prescription of home medications at this point in time and also it is not clear that she has any allergies to medications. Only salesperson burial needs currently for the patient is her boyfriend. He claims that he has been trying to call her mother with which she is estranged, but that the mother is not answering the phone. There is no other known family per the only contact we have and that is the boyfriend. PHYSICAL EXAM: Mary is intubated, overall appears to be relatively healthy female in terms of height and weight and general appearance. Her left foot is massively swollen over the dorsum up to above the ankle level. There is some mild cellulitis also, but mostly a large fluid collection with some early tenting of the skin over the dorsal aspect where it appears she may have had a small puncture wound. The foot itself is warm, we cannot determine the sensation at this time. Radiographs are reported to show some gas in the soft tissue. No evidence of bone lysis. The patient with a large abscess left foot presumably self inflicted through IV drug abuse lasting 3 to 4 days, but certainly coming to a head now. She is admitted and intubated with some signs of sepsis, but overall in stable medical condition currently and the plan at this point will be an irrigation debridement of the left foot. I have explained this to the boyfriend and he has been the one that has been consenting to treatment thus far. [id number]/[facility] #: [id number] AMIRA
--- NOTE | 2018-06-14 09:46 | RAD ---
INDICATION: Infection left ankle pain and swelling. COMPARISON: Correlation is made with a prior soft tissue ultrasound of the left ankle and foot. TECHNIQUE: Axial, sagittal and coronal T1 and T2-weighted images of the left ankle were obtained. FINDINGS: There is diffuse soft tissue swelling which is most prominent on the long the dorsal lateral aspect of the foot and ankle. There is a complex fluid collection present along the dorsal lateral aspect of the midfoot superficial to the extensor digitorum tendons in the subcutaneous tissues. This measures 3.7 x 2.2 x 2.0 cm and would be most consistent with an abscess. There is a smaller simple fluid collection located more proximal associated with the extensor digitorum muscle and tendons measuring 1.7 x 0.9 cm in size. There is a small effusions within the talocrural and subtalar joints. No bone marrow edema or significant focal osseous abnormality is seen. The deltoid, calcaneal fibular, anterior and posterior tibiofibular and talofibular ligaments appear intact. The plantar fascia appears to be within normal limits. IMPRESSION: 1. DIFFUSE SOFT TISSUE SWELLING MOST CONSISTENT WITH CELLULITIS. 2. THERE IS A COMPLEX FLUID COLLECTION PRESENT ALONG THE DORSAL LATERAL ASPECT OF THE MIDFOOT DESCRIBED MOST CONSISTENT WITH AN ABSCESS. 2. THERE IS A SMALLER SIMPLE FLUID COLLECTION ASSOCIATED WITH THE EXTENSOR DIGITORUM MUSCLE AND TENDON POSSIBLY REPRESENTING TENOSYNOVITIS OR A SMALLER ABSCESS.
[2018-06-14] MEDS: Pantoprazole IV* 40 MG IV SCH (09:57)
[2018-06-14] MEDS ORDERED: fentaNYL* 50 MCG/ML 5 ML VIAL (250 MCG VIAL) ONE (10:21)
[2018-06-14] MEDS ORDERED: Midazolam* 1 MG/ML 5 ML VIAL (5 MG) ONE (10:21)
[2018-06-14] MEDS: Cefepime 2 GM in Dextrose(*) 2 GM/50 ML BAG IV SCH ×2 (10:28→21:38)
[2018-06-14] MEDS ORDERED: Bupivacaine 0.5% PF 10 ML VIAL INJ ONE ×2 (10:38→10:46)
[2018-06-14] MEDS ORDERED: Phenylephrine INJ* 10 MG/ML 1 ML VIAL (10 MG) ONE (11:44)
--- NOTE | 2018-06-14 12:15 | OP ---
Operative Report - Blank - Operative Report Date of Operation: 06/14/18 Note: PATIENT: Mary Doyle DATE OF : 1985 DATE OF SURGERY: 06/14/2018 SURGEON: Dalton Wolff MD SURGICAL AIDES TEACHER: Jerome Guerra MD ANESTHESIOLOGIST: Per Guadarrama MD PREOPERATIVE DIAGNOSIS: Left foot soft tissue abscess and infection POSTOPERATIVE DIAGNOSIS: Left foot soft tissue abscess and infection OPERATION: Left foot irrigation and debridement ANESTHESIA: GETA IMPLANTS: none TOURNIQUET TIME: Less than 1 hour with a well-padded thigh tourniquet at 250mmHg SPECIMENS: Culture swabs to micro ESTIMATED BLOOD LOSS: minimal COMPLICATIONS: none STATUS: Stable from the operating room to the recovery room and then back to the ICU. INDICATIONS FOR PROCEDURE: Mary is an IVDU who injected into the left foot and developed an abscess and deep soft tissue infection. Both operative and nonoperative alternatives were discussed with the mom since the patient was intubated and sedated. Discussed risks of surgery included, but were not limited to, persistent or worsening infection, wound problems, nerve injury, neuroma, RSD, persistent symptoms, blood clot, failure of the surgery, need for further surgery, and even the remote chance of catastrophic complication, including loss of limb. DESCRIPTION OF PROCEDURE: The patient was seen in the ICU and informed written consent was obtained from the mother. The appropriate extremity was marked. The patient was then brought to the operating room and carefully positioned on the operating room table. Anesthesia was induced. All bony prominences were padded with great care. A well -padded thigh tourniquet was placed. A chlorhexidine based pre-scrub was performed followed by a chloraprep prep and drape in standard sterile fashion. A surgical safety pause was then conducted in which we confirmed the appropriate patient, extremity, planned procedure, availability of equipment, indication and administration of antibiotics, and DVT prophylaxis in the form of a compression boot on the non-surgical extremity. We began by gravity exsanguination and inflated the tourniquet. A 12 cm longitudinal incision was made centered over the abscess on the dorsum of the foot. Gross pus was quickly encountered. Culture swabs were sent to microbiology. We then incised through the subcutaneous tissue and through the dorsal fascial layer to expose the deep structures, including the tendons and muscles. All purulent material was sharply excised with a 15 blade scalpel. All remaining nonviable tissue was also sharply excised with a 15 blade scalpel. Once all infected-looking tissue was excised, the wound was copiously irrigated. The wound was then closed loosely with 3-0 Prolene sutures in a vertical mattress fashion. A Othello drain was placed to drain the wound. A sterile dressing was then applied followed by a splint with the ankle in a neutral position. The patient was then transferred back to the ICU. There were no complications. All needle and sponge counts were correct at the end of the case. ATTESTATION: I attest I was present and scrubbed and performed the critical portions of the procedure myself. POSTOPERATIVE PLAN: Mary will continue on antibiotics per the infectious disease service. We will plan on removing the drain in a couple of days.
[2018-06-14] MEDS: KCL 20 MEQ/100 ML IVPREMIX* 20 MEQ/100 ML BAG IV SCH ×2 (12:23→15:01)
--- NOTE | 2018-06-14 14:42 | PN ---
Progress Note - Progress Note Date of Service: 06/14/18 - [facility] update Note: Pt was seen and examined multiple timesthrough out the day. Case discussed with admitting physician Dr Ibarra Pt is 33 y o f with h/o bipolar disorder, anxiety/depression, IVDA, uses MDMA daily. Pt was admitted last night for sepsis sec to cellulitis and left foot abscess. Pt was agitated, restless in ED, was not complaint with therapy, peripheral access could not be obtained sec to poor peripheral veins due to IVDU. She has needed CVC for abx, IVF. Pt needed sedation to achieve this and was intubated for airway protection. She had IJ placed, was initiated on broad spectrum abx. Blood cultures couldnot be sent from ED prior to initiation of abx due to inability to access veins due to chronic IVDU Surgery was consulted and she underwent I&D today with drainage of left foot abscess. Patient remains intubated, sedated on propofol and Fentanyl. She is hemodynamically stable however with hypothermia Active Medications Generic Name Dose Route Start Last Admin Trade Name Freq PRN Reason Stop Dose Admin Acetaminophen 650 mg 06/13/18 21:34 Tylenol Tab* PO Q4H PRN FEVER/PAIN Chlorhexidine Gluconate 15 ml 06/14/18 01:00 06/14/18 12:23 Peridex Mouth Wash 0.12%* TOPICAL 15 ml Q4H CHERYL Administration Heparin Sodium (Porcine) 5,000 units 06/13/18 22:00 06/14/18 06:18 Heparin Vial(*) SUBCUT Not Given Q8HR CHERYL Hydromorphone HCl 1 mg 06/14/18 03:00 Dilaudid Inj* IV SLOW PU Q4H PRN PAIN Cefepime HCl 2 gm in 50 mls @ 100 mls/hr 06/13/18 22:00 06/14/18 10:28 Maxipime 2 Gm In Dextrose Duplex (*) IV 100 mls/hr Q12H CHERYL Administration Sodium Chloride 1,000 mls @ 125 mls/hr 06/13/18 21:45 06/14/18 02:39 Ns 0.9% 1000 Ml* IV 125 mls/hr PER RATE CHERYL Administration Propofol 100 mls @ 2.041 mls/hr 06/14/18 01:00 06/14/18 12:24 Diprivan* IV 23.7 mls/hr .(Initial Rate) CHERYL Administration Protocol 5 MCG/KG/MIN Fentanyl Citrate 20 mls @ 0.5 mls/hr 06/14/18 01:00 06/14/18 02:28 Fentanyl [employer] Director* [employer] 0.5 mls/hr Q24H CHERYL Administration Protocol 25 MCG/HR Vancomycin HCl 1,000 mg/ 250 mls @ 166.667 mls/hr 06/14/18 06:30 06/14/18 12: 52 Sodium Chloride IVPB 166.667 mls/hr Q6H CHERYL Administration Potassium Chloride 20 meq in 100 mls @ 50 mls/hr 06/14/18 11:00 06/14/18 12: 23 Potassium Chloride 20 Meq/100 Ml Ivpremix* IV 06/14/18 14:59 50 mls/hr Q2H CHERYL Administration Lorazepam 1 mg 06/13/18 22:35 06/14/18 02:28 Ativan Inj* IV PUSH 1 mg Q6H PRN Administration ANXIETY Ondansetron HCl 4 mg 06/13/18 22:00 06/14/18 14:38 Zofran Inj* IV Not Given Q4H CHERYL Pantoprazole Sodium 40 mg 06/14/18 09:00 06/14/18 09:57 Protonix Iv* IV 40 mg DAILY CHERYL Administration Pharmacy Consult 1 note 06/13/18 22:01 Vancomycin Per Pharmacy* FOLLOW UP . PRN PER PROTOCOL Pharmacy Profile Note 1 note 06/14/18 18:30 Vancomycin Trough Check FOLLOW UP 06/14/18 18:31 1830 ONE Vital Signs Temp Pulse Resp BP Pulse Ox 97.0 F 86 14 100/66 100 06/14/18 13:45 06/14/18 13:45 06/14/18 13:00 06/14/18 13:45 06/14/18 13:45 O/E: Pt in NAD HEENT: PERRLA, No JVD Lungs: Clear to auscultation b/l CVS: S1, S2+, regular, no audible murmer Abd: Soft, BS+ Ext: Left foot swollen, fluctuant area on dorsal lateral aspect Skin: Cellulitis left foot, multiple skin needle torres on upper and lower extremities, multiple macular skin lesions on extremities b/l Neuro: NO focal defecits Laboratory Results - last 24 hr 06/13/18 06/13/18 06/13/18 19:49 20:35 20:35 WBC 15.6 H RBC 4.20 Hgb 12.3 Hct 37 MCV 87 MCH 29 MCHC 34 RDW 15 Plt Count 209 MPV 10.0 Neut % (Auto) 77.0 Lymph % (Auto) 14.9 L Mcclain % (Auto) 6.9 Eos % (Auto) 0.8 Baso % (Auto) 0.4 Absolute Neuts (auto) 12.0 H Absolute Lymphs (auto) 2.3 Absolute Monos (auto) 1.1 H Absolute Eos (auto) 0.1 Absolute Basos (auto) 0.1 Absolute Nucleated RBC 0 Nucleated RBC % 0 INR (Anticoag Therapy) 1.06 H APTT 29.7 Patient Temperature ABG pH ABG pH (Temp Correct) ABG pCO2 ABG pCO2 (Temp Corrct ABG pO2 ABG pO2 (Temp Correct ABG HCO3 ABG O2 Saturation ABG Base Excess Respiration Rate Ventilator Type Vent Mode Inspiratory Time PEEP Pressure Support Pressure Control EPAP IPAP BiPAP Sodium Potassium Chloride Carbon Dioxide Anion Gap BUN Creatinine Est GFR ( Amer) Est GFR (Non-Af Amer) BUN/Creatinine Ratio Glucose Lactic Acid Calcium Total Bilirubin AST ALT Alkaline Phosphatase Troponin I C-Reactive Protein Total Protein Albumin Globulin Albumin/Globulin Ratio Beta HCG, Quant Urine Color Li Urine Appearance Cloudy Urine pH 6.0 Ur Specific [place] 1.019 Urine Protein 2+(100 mg/dl) A Urine Ketones 1+ A Urine Blood Negative Urine Nitrate Negative Urine Bilirubin Negative Urine Urobilinogen Positive A Ur Leukocyte Esterase 2+ A Urine WBC (Auto) 3+(>20/hpf) A Urine RBC (Auto) 3+(>10/hpf) A Ur Squamous Epith Cells Present A Urine Bacteria Absent Urine Glucose Negative 06/13/18 06/13/18 06/14/18 20:35 20:35 01:54 WBC RBC Hgb Hct MCV MCH MCHC RDW Plt Count MPV Neut % (Auto) Lymph % (Auto) Mcclain % (Auto) Eos % (Auto) Baso % (Auto) Absolute Neuts (auto) Absolute Lymphs (auto) Absolute Monos (auto) Absolute Eos (auto) Absolute Basos (auto) Absolute Nucleated RBC Nucleated RBC % INR (Anticoag Therapy) APTT Patient Temperature Not Reportable ABG pH 7.41 ABG pH (Temp Correct) Not Reportable ABG pCO2 39 ABG pCO2 (Temp Corrct Not Reportable ABG pO2 408 H ABG pO2 (Temp Correct Not Reportable ABG HCO3 25.0 ABG O2 Saturation 100.2 H ABG Base Excess 0.1 Respiration Rate 14 Ventilator Type 450 Vent Mode cmv Inspiratory Time Not Reportable PEEP 5 Pressure Support Not Reportable Pressure Control Not Reportable EPAP Not Reportable IPAP Not Reportable BiPAP Not Reportable Sodium 136 Potassium TNP Chloride 104 Carbon Dioxide 24 Anion Gap 8 BUN 7 Creatinine 0.54 Est GFR ( Amer) 157.3 Est GFR (Non-Af Amer) 130.0 BUN/Creatinine Ratio 13.0 Glucose 117 H Lactic Acid 1.1 Calcium 8.8 Total Bilirubin 0.90 AST TNP ALT 12 Alkaline Phosphatase 80 Troponin I 0.03 C-Reactive Protein 154.29 H Total Protein 6.6 Albumin 3.6 Globulin 3.0 Albumin/Globulin Ratio 1.2 Beta HCG, Quant 0.90 Urine Color Urine Appearance Urine pH Ur Specific [place] Urine Protein Urine Ketones Urine Blood Urine Nitrate Urine Bilirubin Urine Urobilinogen Ur Leukocyte Esterase Urine WBC (Auto) Urine RBC (Auto) Ur Squamous Epith Cells Urine Bacteria Urine Glucose 06/14/18 06/14/18 06/14/18 06:28 06:28 06:28 WBC 10.5 RBC 3.61 L Hgb 10.7 L Hct 31 L MCV 87 MCH 30 MCHC 34 RDW 15 Plt Count 153 MPV 9.9 Neut % (Auto) 72.6 Lymph % (Auto) 18.5 L Mcclain % (Auto) 6.6 Eos % (Auto) 1.9 Baso % (Auto) 0.4 Absolute Neuts (auto) 7.6 Absolute Lymphs (auto) 1.9 Absolute Monos (auto) 0.7 Absolute Eos (auto) 0.2 Absolute Basos (auto) 0 Absolute Nucleated RBC 0 Nucleated RBC % 0 INR (Anticoag Therapy) 1.08 H APTT Patient Temperature ABG pH ABG pH (Temp Correct) ABG pCO2 ABG pCO2 (Temp Corrct ABG pO2 ABG pO2 (Temp Correct ABG HCO3 ABG O2 Saturation ABG Base Excess Respiration Rate Ventilator Type Vent Mode Inspiratory Time PEEP Pressure Support Pressure Control EPAP IPAP BiPAP Sodium Potassium Chloride Carbon Dioxide Anion Gap BUN Creatinine Est GFR ( Amer) Est GFR (Non-Af Amer) BUN/Creatinine Ratio Glucose Lactic Acid 0.6 Calcium Total Bilirubin AST ALT Alkaline Phosphatase Troponin I C-Reactive Protein Total Protein Albumin Globulin Albumin/Globulin Ratio Beta HCG, Quant Urine Color Urine Appearance Urine pH Ur Specific [place] Urine Protein Urine Ketones Urine Blood Urine Nitrate Urine Bilirubin Urine Urobilinogen Ur Leukocyte Esterase Urine WBC (Auto) Urine RBC (Auto) Ur Squamous Epith Cells Urine Bacteria Urine Glucose 06/14/18 06:28 WBC RBC Hgb Hct MCV MCH MCHC RDW Plt Count MPV Neut % (Auto) Lymph % (Auto) Mcclain % (Auto) Eos % (Auto) Baso % (Auto) Absolute Neuts (auto) Absolute Lymphs (auto) Absolute Monos (auto) Absolute Eos (auto) Absolute Basos (auto) Absolute Nucleated RBC Nucleated RBC % INR (Anticoag Therapy) APTT Patient Temperature ABG pH ABG pH (Temp Correct) ABG pCO2 ABG pCO2 (Temp Corrct ABG pO2 ABG pO2 (Temp Correct ABG HCO3 ABG O2 Saturation ABG Base Excess Respiration Rate Ventilator Type Vent Mode Inspiratory Time PEEP Pressure Support Pressure Control EPAP IPAP BiPAP Sodium 143 Potassium 2.9 L Chloride 113 H Carbon Dioxide 26 Anion Gap 4 BUN 5 L Creatinine 0.47 L Est GFR ( Amer) 184.7 Est GFR (Non-Af Amer) 152.6 BUN/Creatinine Ratio 10.6 Glucose 84 Lactic Acid Calcium 7.7 L Total Bilirubin AST 12 L ALT Alkaline Phosphatase Troponin I C-Reactive Protein Total Protein Albumin Globulin Albumin/Globulin Ratio Beta HCG, Quant Urine Color Urine Appearance Urine pH Ur Specific [place] Urine Protein Urine Ketones Urine Blood Urine Nitrate Urine Bilirubin Urine Urobilinogen Ur Leukocyte Esterase Urine WBC (Auto) Urine RBC (Auto) Ur Squamous Epith Cells Urine Bacteria Urine Glucose I/R: 33 y o f with IVDA a/w Lt lower extremity swelling for few days, found to have abscess and cellulitis with resultant sepsis. Pt had I&D in OR with drainage of abscess. She is on broad spectrum abx, hemodynamically stable She remains intubated given concern with agitation and interference with medical care She will be having peripheral IV access today and will remove central access and plan for extubation tomorrow Neuro: H/o anxiety/depression, bipolar disorder - Intubated yesterday for airway protection post sedation to facilitate medical care in setting of severe agitation - Currently on Propofol and Fentanyl for pain ID: H/o regular IVDA with MDMA -Pt with multiple needle stick torres and skin lesions - Pt had I&D of lt foot abscess, negative for MRSA -ECHO ordered to evaluate for IE -Blood cx sent from peripheral source and from IJ - On broad spectrum abx- Cefepime, Vanco, will narrow after reviewing cultures - Hypothermic- Nisha hugger - Hemodynamically stable, lactic acid normal Renal: Hypokalemia, hypocalcemia Repleted potassium, will f/u rpt K and check magnesium levels UO good, UA positive for protein and RBC- ? GN sec to IVDA, creatinine within normal limits Will monitor closely f/u urine cx, ? urosepsis, covered by current abx Resp: Intuabted for airway protection, no PNA Resp mechanics acceptable Will plan extubation if other parameters allow in am c/w vent bundle CVS: Hemodynamically stable ECHO to evaluate for veegtations GI: NGT to suction this am Will start tube feeds GI ppx Endo: No issues Haem: Leucocytosis sec to sepsis, improving Musculoskeltal: Cellulitis of left foot, abscess s/p I&D, multiple skin lesions and needle track torres Psychosocial: Mother is HCP, at bedside Supportive and preventive care as ordered IV access: IJ, peripheral access to be established
[2018-06-14 15:53] LABS: EGFR Non-African American 160.5 (>60)
[2018-06-14] MEDS ORDERED: Vancomycin Trough Check NOTE FOLLOW UP ONE (18:30)
[2018-06-14] MEDS: HYDROmorphone INJ* 0.5 MG/0.5 ML SYRINGE IV SLOW PU PRN (19:50)
[2018-06-15] MEDS: Propofol* 100 ML IV SCH ×5 (00:42→19:50)
[2018-06-15] MEDS ORDERED: Dexmedetomidine* 400 MCG in NS 0.9% 100 ML* 96 ML IVPB SCH (02:00)
[2018-06-15] MEDS: Ondansetron INJ* 2 MG/ML VIAL IV SCH ×6 (02:06→22:19)
[2018-06-15] MEDS: Chlorhexidine MOUTHWASH 0.12%* 15 ML UDC TOPICAL SCH ×5 (04:31→22:18)
[2018-06-15] MEDS: NS 0.9% 1000 ML* 1,000 ML IV SCH ×2 (04:37→15:16)
[2018-06-15] MEDS: LORazepam INJ* 2 MG/ML 1 ML VIAL IV PUSH PRN (05:02)
[2018-06-15] MEDS: Heparin VIAL(*) 5000 UNITS/ML VIAL (FIVE THOUSAND) SUBCUT SCH ×3 (05:04→22:18)
[2018-06-15] MEDS: Vancomycin(*) 1,000 MG in NS 0.9% 250 ML* 250 ML IVPB SCH (05:05)
[2018-06-15 06:41] LABS: Hematocrit 30 % (35-47); Mean Corpuscular HGB Conc 34 g/dl (31-36); Mean Corpuscular Hemoglobin 29 pg (27-31); Mean Corpuscular Volume 88 fL (80-97); Mean Platelet Volume 9.6 um3 (7.4-10.4); Platelet Count 157 10^3/ul (150-450); Red Blood Count 3.42 10^6/ul (4.00-5.40); Red Cell Distribution Width 15 % (10.5-15); White Blood Count 7.3 10^3/ul (3.5-10.8)
[2018-06-15] MEDS: fentaNYL PCA* 20 ML PCA SCH (06:55)
[2018-06-15 07:01] LABS: EGFR Non-African American 138.9 (>60)
[2018-06-15] MEDS: Pantoprazole IV* 40 MG IV SCH (09:29)
[2018-06-15] MEDS: Cefepime 2 GM in Dextrose(*) 2 GM/50 ML BAG IV SCH (09:30)
--- NOTE | 2018-06-15 11:57 | PN ---
Progress Note - Progress Note Date of Service: 06/15/18 SOAP: Subjective: Pt is lying comfortably in bed. responds to stimulus. Still intubated Objective: 33 y/o WDWN F NAD LLE- splint c/d/i, brisk cap refill, knee NT palpation RUE- edema of the right hand with 3 cm area of redness, no fluctuance or open wounds, no response to palpation and PROM of hand, + 2 radial pulse, brisk cap refill Vital Signs Temp Pulse Resp BP Pulse Ox 99.9 F 83 16 128/77 99 06/15/18 11:25 06/15/18 11:25 06/15/18 11:00 06/15/18 11:25 06/15/18 11:25 Laboratory Results - last 24 hr 06/14/18 06/14/18 06/15/18 15:22 16:00 06:27 WBC RBC Hgb Hct MCV MCH MCHC RDW Plt Count MPV Sodium 143 143 Potassium 3.6 3.2 L Chloride 115 H 115 H Carbon Dioxide 25 23 Anion Gap 3 5 BUN 4 L 5 L Creatinine 0.45 L 0.51 Est GFR ( Amer) 194.2 168.0 Est GFR (Non-Af Amer) 160.5 138.9 BUN/Creatinine Ratio 8.9 9.8 Glucose 70 60 L Calcium 7.6 L 7.7 L Magnesium 1.9 Vancomycin Trough 11.5 06/15/18 06:27 WBC 7.3 RBC 3.42 L Hgb 10.0 L Hct 30 L MCV 88 MCH 29 MCHC 34 RDW 15 Plt Count 157 MPV 9.6 Sodium Potassium Chloride Carbon Dioxide Anion Gap BUN Creatinine Est GFR ( Amer) Est GFR (Non-Af Amer) BUN/Creatinine Ratio Glucose Calcium Magnesium Vancomycin Trough Assessment: 33 y/o F POD 1 S/P left foot I&D Plan: NWB LLE- keep splint c/d/i Will cont monitor right hand cont IV abx per ID splint change and drain to be pulled Saturday
--- NOTE | 2018-06-15 12:05 | PN ---
Date of Service: 06/15/18 - [facility] progress note Critical Care Services: Pt seen and examined at bedside. Pt was very agitated last night when sedation was decreased, try to reach ETT, required restraints, sedation was increased again, similar episode happened again this afternoon while she was being cleaned Meds, labs, vitals reviewed Vital Signs: Temp Pulse Resp BP SpO2 FiO2 99.9 F 83 16 128/77 99 30 06/15/18 11:25 06/15/18 11:25 06/15/18 11:00 06/15/18 11:25 06/15/18 11:25 06/15 08:00 Physical Exam: Gen: Pt in NAD, sedated HEENT: ETT+, PERRLA Lungs: Clear to auscultation b/l Cardiac: S1, S2+, regular Abdomen: Soft, BS+ Extremities: No edema, area of cellulitis and abscess in left foot better Neuro: Sedated, becomes agitated and violent when sedation is lowered Fluid Balance (Past 24 Hours): I= 3312 O= 1135 Net 2177, more negative fluid balance this am Intake & Output 06/13/18 06/14/18 06/15/18 06/16/18 06:59 06:59 06:59 06:59 Intake Total 472 3312.3 Output Total 1160 1135 275 Balance -688 2177.3 -275 Weight 145 lb 11.609 oz 160 lb 0.889 oz Intake: IV Fluids 358 2655 2GM CEFEPIME 100 ABX - VANCOMYCIN 738 KCl 97 NS (0.9%) 358 1720 IVPB 384 ABX - VANCOMYCIN 271 NS (0.9%) 113 Medicated IV 114 273.3 CC - Dexmedetomidine/ 20.3 Precedex CC - Propofol/Diprivan 114 253 Oral 0 Output: Jin 1160 1135 225 Straight Cath 50 Labs: Laboratory Results - last 24 hr 06/14/18 06/14/18 06/15/18 15:22 16:00 06:27 WBC RBC Hgb Hct MCV MCH MCHC RDW Plt Count MPV Sodium 143 143 Potassium 3.6 3.2 L Chloride 115 H 115 H Carbon Dioxide 25 23 Anion Gap 3 5 BUN 4 L 5 L Creatinine 0.45 L 0.51 Est GFR ( Amer) 194.2 168.0 Est GFR (Non-Af Amer) 160.5 138.9 BUN/Creatinine Ratio 8.9 9.8 Glucose 70 60 L Calcium 7.6 L 7.7 L Magnesium 1.9 Vancomycin Trough 11.5 06/15/18 06:27 WBC 7.3 RBC 3.42 L Hgb 10.0 L Hct 30 L MCV 88 MCH 29 MCHC 34 RDW 15 Plt Count 157 MPV 9.6 Sodium Potassium Chloride Carbon Dioxide Anion Gap BUN Creatinine Est GFR ( Amer) Est GFR (Non-Af Amer) BUN/Creatinine Ratio Glucose Calcium Magnesium Vancomycin Trough Studies: CXR: ETT in place, no air space opacities MRI of left foot: No osteo, abscess+ Nutrition: Having signficiant output through ETT, will start OGT feeds when GI secretions are decreased Impression: 33 y o f with IVDA a/w Lt lower extremity swelling for few days, found to have abscess and cellulitis with resultant sepsis. Pt had I&D in OR with drainage of abscess on 06/14/18. She is on broad spectrum abx, hemodynamically stable She remains intubated given concern with agitation and interference with medical care. Tried to lower sedation, however became very violent and agitated 1. Sepsis sec to cellulitis and abscess 2. IVDA with multiple skin lesions 3. Hypotension responded to fluid resuscitation 4. AMS, agitation- metabolic encephalopathy versus drug withdrawl 5. S/p intubation for airway protection 6. Hypokalemia 7. Normocytic anemia 8. Anxiety/depression/Bipolar disorder Plan: Neuro: H/o anxiety/depression, bipolar disorder - Intubated for airway protection post sedation to facilitate medical care in setting of severe agitation - Attempt at sedation vacation not successful, pt became agitated, suspect drug withdrawl, also concern with encephalopathy - No nuchal rigidity or signs of meningitis _ will obtain CT brain if any clinical concern in am as sepsis improves - Currently on Propofol and Fentanyl for pain ID: H/o regular IVDA with MDMA and heroin -Pt with multiple needle stick torres and skin lesions - Pt had I&D of lt foot abscess, negative for MRSA, cx growing Strep pyogens - Will narrow spectrum, change to Zosyn, d/c Vancomycin - Bl cx negative to date -ECHO ordered to evaluate for IE -Blood cx sent from peripheral source and from IJ, results pending - Hypothermic and hypotensive yesterday, resolved now - Hemodynamically stable, lactic acid normal Renal: Hypokalemia, hypocalcemia Repleted potassium, will f/u rpt K and check magnesium levels UO good, UA positive for protein and RBC- ? GN sec to IVDA, creatinine within normal limits Will monitor closely f/u urine cx, ? urosepsis, covered by current abx Resp: Intuabted for airway protection, no PNA Resp mechanics acceptable c/w vent bundle Didnot tolerate sedation vacation today, will plan for extubation tomorrow CVS: Hemodynamically stable ECHO to evaluate for vegetations pending GI: NGT to gravity, still having more secretions, clear today Will start tube feeds GI ppx Endo: No issues, bl glucose 60 on BMP, will order bl glucose monitoring q 4 hrs Haem: Leucocytosis sec to sepsis, resolved Musculoskeltal: Cellulitis of left foot, abscess s/p I&D, multiple skin lesions and needle track torres, has lesion in RUE, being followed Psychosocial: Mother is HCP, boy friend at bedside, updated Supportive and preventive care as ordered IV access: IJ, difficult peripheral access sec to IVDA Critical Care Time: 30 min
[2018-06-15] MEDS ORDERED: KCL 20 MEQ/100 ML IVPREMIX* 20 MEQ/100 ML BAG IV ONE (12:16)
[2018-06-15] MEDS ORDERED: ZOSYN 3.375 GM x ONE DOSE over 30 miuntes IVPB ×2 (13:00)
[2018-06-15] MEDS: Dexmedetomidine* 400 MCG in NS 0.9% 100 ML* 96 ML IVPB SCH (13:46)
[2018-06-15] MEDS: Piperacillin/Tazobac ADVAN(*) 3.375 GM in NS 0.9% 100 ML* 100 ML IVPB SCH (17:24)
[2018-06-16] MEDS: Propofol* 100 ML IV SCH ×4 (00:03→19:43)
[2018-06-16] MEDS: Piperacillin/Tazobac ADVAN(*) 3.375 GM in NS 0.9% 100 ML* 100 ML IVPB SCH ×3 (01:03→16:44)
[2018-06-16] MEDS: Dexmedetomidine* 400 MCG in NS 0.9% 100 ML* 96 ML IVPB SCH ×4 (01:05→22:15)
[2018-06-16] MEDS: Chlorhexidine MOUTHWASH 0.12%* 15 ML UDC TOPICAL SCH ×6 (01:08→19:42)
[2018-06-16] MEDS: Ondansetron INJ* 2 MG/ML VIAL IV SCH ×4 (02:45→13:01)
[2018-06-16] MEDS: NS 0.9% 1000 ML* 1,000 ML IV SCH ×2 (03:47→11:51)
[2018-06-16 05:54] LABS: ABS Basophils 0 10^3/ul (0-0.2); ABS Eosinophils 0.5 10^3/ul (0-0.6); ABS Lymphocytes 1.5 10^3/ul (1.0-4.8); ABS Monocytes 0.3 10^3/ul (0-0.8); ABS Neutrophils 2.8 10^3/ul (1.5-7.7); ABS Nucleated RBC 0 10^3/ul; Eosinophil % 9.5 % (0-6); Hematocrit 30 % (35-47); Hemoglobin 10.2 g/dl (12.0-16.0); Lymphocyte % 28.4 % (25-47); Mean Corpuscular HGB Conc 34 g/dl (31-36); Mean Corpuscular Hemoglobin 29 pg (27-31); Mean Corpuscular Volume 87 fL (80-97); Mean Platelet Volume 9.4 um3 (7.4-10.4); Nucleated Red Blood Cells % 0; Platelet Count 181 10^3/ul (150-450); Red Blood Count 3.49 10^6/ul (4.00-5.40); Red Cell Distribution Width 15 % (10.5-15); White Blood Count 5.2 10^3/ul (3.5-10.8)
[2018-06-16] MEDS ORDERED: Vancomycin Trough Check NOTE FOLLOW UP ONE (06:00)
[2018-06-16 06:15] LABS: EGFR Non-African American 160.5 (>60)
[2018-06-16 06:24] LABS: Vancomycin Trough < 2.0 mcg/mL
[2018-06-16] MEDS: Heparin VIAL(*) 5000 UNITS/ML VIAL (FIVE THOUSAND) SUBCUT SCH ×3 (06:28→22:06)
[2018-06-16] MEDS: Vancomycin(*) 1,000 MG in NS 0.9% 250 ML* 250 ML IVPB SCH (07:37)
--- NOTE | 2018-06-16 09:34 | PN ---
Progress Note - Progress Note Date of Service: 06/16/18 SOAP: Subjective: []Patient seen at bedside. She is unable to participate in exam. Objective: []Patient seen at bedside. She is intubated and does not respond to spoken voice. RUE- moderate edema of the right hand with 2 cm area of redness over the dorsum , no fluctuance or open wounds. She does not withdraw to or respond to palpation and passive ROM of the wrist or digits in any way.+ 2 radial pulse, brisk cap refill. Forearm is supple and no tracking erythema LLE: Splint CDI. Capillary refill less than two seconds distally. Hayden drain pulled. Assessment: [] 33 y/o F POD 2 S/P left foot I&D Plan: NWB LLE- keep splint c/d/i. Will change later this week Will continue monitor right hand. No need for washout at this time continue IV abx per ID Vital Signs Temp 96.8 F 06/16/18 08:30 Pulse 67 06/16/18 09:00 Resp 16 06/16/18 09:00 BP 110/71 06/16/18 08:30 Pulse Ox 100 06/16/18 09:00 Intake & Output 06/15/18 06/16/18 06/16/18 18:59 06:59 18:59 Intake Total 2261 2300 Output Total 620 505 110 Balance 1641 1795 -110 Weight 154 lb 15.759 oz Intake: IVPB 1763 1742 ABX - VANCOMYCIN 166 KCl 42 56 NS (0.9%) 1555 1486 pipercillen 200 Medicated IV 468 430 CC - Dexmedetomidine/ 91 148 Precedex CC - Propofol/Diprivan 377 282 Tube Feeding 30 128 Output: Jin 560 505 110 Straight Cath 50 Estimated Blood Loss 10 Laboratory Last Values WBC 5.2 10^3/ul (3.5-10.8) 06/16/18 05:47 RBC 3.49 10^6/ul (4.00-5.40) L 06/16/18 05:47 Hgb 10.2 g/dl (12.0-16.0) L 06/16/18 05:47 Hct 30 % (35-47) L 06/16/18 05:47 MCV 87 fL (80-97) 06/16/18 05:47 MCH 29 pg (27-31) 08/13/18 05:47 MCHC 34 g/dl (31-36) 06/16/18 05:47 RDW 15 % (10.5-15) 06/16/18 05:47 Plt Count 181 10^3/ul (150-450) 06/16/18 05:47 MPV 9.4 um3 (7.4-10.4) 06/16/18 05:47 Neut % (Auto) 54.9 % (38-83) 06/16/18 05:47 Lymph % (Auto) 28.4 % (25-47) 06/16/18 05:47 Randall % (Auto) 6.7 % (0-7) 06/16/18 05:47 Eos % (Auto) 9.5 % (0-6) H 06/16/18 05:47 Baso % (Auto) 0.5 % (0-2) 06/16/18 05:47 Absolute Neuts (auto) 2.8 10^3/ul (1.5-7.7) 06/16/18 05:47 Absolute Lymphs (auto) 1.5 10^3/ul (1.0-4.8) 06/16/18 05:47 Absolute Monos (auto) 0.3 10^3/ul (0-0.8) 06/16/18 05:47 Absolute Eos (auto) 0.5 10^3/ul (0-0.6) 06/16/18 05:47 Absolute Basos (auto) 0 10^3/ul (0-0.2) 06/16/18 05:47 Absolute Nucleated RBC 0 10^3/ul 06/16/18 05:47 Nucleated RBC % 0 06/16/18 05:47 INR (Anticoag Therapy) 1.08 (0.77-1.02) H 06/14/18 06:28 APTT 29.7 seconds (26.0-36.3) 06/13/18 20:35 Patient Temperature Not Reportable 06/14/18 01:54 ABG pH 7.41 (7.35-7.45) 06/14/18 01:54 ABG pH (Temp Correct) Not Reportable 06/14/18 01:54 ABG pCO2 39 mmHg (35-45) 06/14/18 01:54 ABG pCO2 (Temp Corrct Not Reportable 06/14/18 01:54 ABG pO2 408 mmHg (80-100) H 06/14/18 01:54 ABG pO2 (Temp Correct Not Reportable 06/14/18 01:54 ABG HCO3 25.0 mmol/L (19-31) 06/14/18 01:54 ABG O2 Saturation 100.2 % (95-98) H 06/14/18 01:54 ABG Base Excess 0.1 (-2.0-2.0) 06/14/18 01:54 Respiration Rate 14 06/14/18 01:54 Ventilator Type 450 06/14/18 01:54 Vent Mode cmv 06/14/18 01:54 Inspiratory Time Not Reportable 06/14/18 01:54 PEEP 5 06/14/18 01:54 Pressure Support Not Reportable 06/14/18 01:54 Pressure Control Not Reportable 06/14/18 01:54 EPAP Not Reportable 06/14/18 01:54 IPAP Not Reportable 06/14/18 01:54 BiPAP Not Reportable 06/14/18 01:54 Sodium 143 mmol/L (135-145) 06/16/18 05:35 Potassium 3.5 mmol/L (3.5-5.0) 06/16/18 05:35 Chloride 115 mmol/L (101-111) H 06/16/18 05:35 Carbon Dioxide 22 mmol/L (22-32) 06/16/18 05:35 Anion Gap 6 mmol/L (2-11) 06/16/18 05:35 BUN 4 mg/dL (6-24) L 06/16/18 05:35 Creatinine 0.45 mg/dL (0.51-0.95) L 06/16/18 05:35 Est GFR ( Amer) 194.2 (>60) 06/16/18 05:35 Est GFR (Non-Af Amer) 160.5 (>60) 06/16/18 05:35 BUN/Creatinine Ratio 8.9 (8-20) 06/16/18 05:35 Glucose 86 mg/dL (70-100) 06/16/18 05:35 POC Glucose (mg/dL) 99 mg/dL (70-100) 06/16/18 08:43 Lactic Acid 0.6 mmol/L (0.5-2.0) 06/14/18 06:28 Calcium 7.8 mg/dL (8.6-10.3) L 06/16/18 05:35 Magnesium 1.7 mg/dL (1.9-2.7) L 06/16/18 05:35 Total Bilirubin 0.90 mg/dL (0.2-1.0) 06/13/18 20:35 AST 12 U/L (13-39) L 06/14/18 06:28 ALT 12 U/L (7-52) 06/13/18 20:35 Alkaline Phosphatase 80 U/L (34-104) 06/13/18 20:35 Troponin I 0.03 ng/mL (<0.04) 06/13/18 20:35 C-Reactive Protein 154.29 mg/L (<8.01) H 06/13/18 20:35 Total Protein 6.6 g/dL (6.4-8.9) 06/13/18 20:35 Albumin 3.6 g/dL (3.2-5.2) 06/13/18 20:35 Globulin 3.0 g/dL (2-4) 06/13/18 20:35 Albumin/Globulin Ratio 1.2 (1-3) 06/13/18 20:35 Beta HCG, Quant 0.90 mIU/mL 06/13/18 20:35 Urine Color Li 06/13/18 19:49 Urine Appearance Cloudy 06/13/18 19:49 Urine pH 6.0 (5-9) 06/13/18 19:49 Ur Specific [place] 1.019 (1.010-1.030) 06/13/18 19:49 Urine Protein 2+(100 mg/dl) (Negative) A 06/13/18 19:49 Urine Ketones 1+ (Negative) A 06/13/18 19:49 Urine Blood Negative (Negative) 06/13/18 19:49 Urine Nitrate Negative (Negative) 06/13/18 19:49 Urine Bilirubin Negative (Negative) 06/13/18 19:49 Urine Urobilinogen Positive (Negative) A 06/13/18 19:49 Ur Leukocyte Esterase 2+ (Negative) A 06/13/18 19:49 Urine WBC (Auto) 3+(>20/hpf) (Absent) A 06/13/18 19:49 Urine RBC (Auto) 3+(>10/hpf) (Absent) A 06/13/18 19:49 Ur Squamous Epith Cells Present (Absent) A 06/13/18 19:49 Urine Bacteria Absent (Absent) 06/13/18 19:49 Urine Glucose Negative (Negative) 06/13/18 19:49 Vancomycin Trough < 2.0 mcg/mL 06/16/18 05:35
[2018-06-16] MEDS: Pantoprazole IV* 40 MG IV SCH (09:39)
[2018-06-16] MEDS: HYDROmorphone INJ* 0.5 MG/0.5 ML SYRINGE IV SLOW PU PRN ×2 (11:27→18:50)
--- NOTE | 2018-06-16 13:16 | RAD ---
HISTORY: respiratory failure COMPARISONS: June 14, 2018 VIEWS: 1: frontal portable view of the chest at 11:20 AM FINDINGS: LINES AND TUBES: An endotracheal tube is noted with the tip overlying the trachea between the clavicles and the ernesto. A gastric tube is noted. The tip is below the [id number] of the current examination, but is below the diaphragm. A right-sided internal jugular central venous catheter is noted with the tip overlying the superior vena cava. CARDIOMEDIASTINAL SILHOUETTE: The cardiomediastinal silhouette is normal for portable technique. PLEURA: The costophrenic angles are sharp. No pleural abnormalities are noted. LUNG PARENCHYMA: The lungs are clear. ABDOMEN: The upper abdomen is clear. There is no subphrenic gas. BONES AND SOFT TISSUES: No bone or soft tissue abnormalities are noted. IMPRESSION: LINES AND TUBES ABOVE. NO ACTIVE CARDIOPULMONARY DISEASE.
--- NOTE | 2018-06-16 13:21 | ECHO ---
Patient: GLENN UMANA [facility] Rec#: [id number] : 1985 Date: 06/16/2018 Age: 33y Height: 165.1 cm / 65.0 in Weight: 68 kg / 149.9 lbs Sex: F BSA: 1.8 Room#: ICU 6 Admit Date#: 06/14/2018 Type: Inpatient Referring: Fady Bacon NP Reading: Jay Alvarez MD Gambling Broker: Shannan Agee RN RDCS Transthoracic Echocardiogram Indication: Sepsis, possible endocarditis BP: 110/71 HR: 61 Rhythm: NSR Findings History: IV drug use, smoker, currently with left lower extremity abscess and cellulitis Technical Comments: The study quality is fair. The study is technically limited due to the patient's smoking history. The study is technically limited due to patient being intubated and on a ventilator. Left Ventricle: The left ventricular chamber size is normal. Global left ventricular wall motion and contractility are within normal limits. Left ventricular systolic function is at the lower limits of normal. The estimated ejection fraction is 50-55%. Normal left ventricular diastolic filling is observed. Left Atrium: The left atrial chamber size is normal. Right Ventricle: The right ventricular cavity size is normal. The right ventricular global systolic function is low normal. Right Atrium: The right atrial cavity size is normal. Aortic Valve: The aortic valve is trileaflet. The aortic valve leaflets are mildly thickened. There is a trace of aortic regurgitation. There is no evidence of aortic stenosis. There is no aortic vegetation present. Mitral Valve: The mitral valve leaflets are mildly thickened. There is mild mitral regurgitation. There is no evidence of mitral stenosis. Tricuspid Valve: The tricuspid valve leaflets are normal. There is trace to mild tricuspid regurgitation. There is no tricuspid stenosis. No vegetation is observed on the tricuspid valve. Pulmonic Valve: The pulmonic valve appears normal. There is mild pulmonic regurgitation. There is no pulmonic stenosis. No vegetation is observed on the pulmonic valve. Pericardium: There is no significant pericardial effusion. A pericardial fat pad is visualized. Aorta: There is no dilatation of the ascending aorta. There is no dilatation of the aortic arch. There is no dilation of the aortic root. Pulmonary Artery: The main pulmonary artery appears normal. Venous: Unable to accurately comment on the size collapsibility of the IVC as the patient in known to be on mechanical ventilation. Conclusions Global left ventricular wall motion and contractility are within normal limits. Left ventricular systolic function is at the lower limits of normal. The estimated ejection fraction is 50-55%. The right ventricular global systolic function is low normal. There is no evidence of aortic stenosis. There is no aortic vegetation present. There is mild mitral regurgitation. There is trace to mild tricuspid regurgitation. No vegetation is observed on the tricuspid valve. There is no significant pericardial effusion. Measurements Name Value Normal Range RVDdMajor (2D) 3.5 cm (2.2 - 4.4) RAd ISD 4CH 4 cm (3.4 - 4.9) RA (A4C)W 3.9 cm (2.9 - 4.6) IVSd (2D) 0.9 cm (0.6 - 1) LVPWd (2D) 0.9 cm (0.6 - 1) LVIDd (2D) 5 cm (3.6 - 5.4) LVIDs (2D) 3.6 cm - LV FS (2D) 28 % (25 - 45) Aortic Annulus 1.8 cm (1.4 - 2.6) Ao root diameter (2D) 2.3 cm (2.1 - 3.5) Ascending Ao 2.6 cm (2.1 - 3.4) Aortic arch 2.1 cm (1.8 - 3.4) LA dimension (AP) 2D 3.5 cm (2.3 - 3.8) LAd ISD 4CH 4.6 cm (2.9 - 5.3) LA ISD 4CH W 4.1 cm (2.5 - 4.5) Name Value Normal Range LA ESV SP 4CH (A/L) 49 ml - LA ESV SP 2CH (A/L) 56 ml - LA ESV BP (A/L) 54 ml - LA ESV BP (A/L) index 30.6 ml/m2 - LA ESV SP 4CH (MOD) 46 ml - LA ESV SP 2CH (MOD) 53 ml - Name Value Normal Range MV E-wave Vmax 0.79 m/sec - MV deceleration time 208 msec - MV A-wave Vmax 0.65 m/sec - MV E:A ratio 1.2 ratio - LV septal e' Vmax 0.12 m/sec - LV lateral e' Vmax 0.17 m/sec - LV E:e' septal ratio 6.6 ratio - LV E:e' lateral ratio 4.6 ratio - Name Value Normal Range AV Vmax 1.4 m/sec - AV VTI 33.9 cm - AV peak gradient 8 mmHg - AV mean gradient 5 mmHg - LVOT Vmax 1.2 m/sec - LVOT VTI 25.8 cm - LVOT peak gradient 6 mmHg - LVOT mean gradient 2 mmHg - SHARON Vmax 1 m/sec - Name Value Normal Range TR Vmax 2.2 m/sec - TR peak gradient 19 mmHg - RAP 8 mmHg - RVSP 27 mmHg - IVC diameter 2 cm - Name Value Normal Range PV Vmax 0.82 m/sec -
[2018-06-16] MEDS: LORazepam INJ* 2 MG/ML 1 ML VIAL IV PUSH PRN ×2 (13:27→19:41)
[2018-06-16] MEDS ORDERED: NS 0.9% 1000 ML* 1,000 ML IV SCH (16:51)
--- NOTE | 2018-06-16 17:00 | PN ---
Progress Note - Progress Note Date of Service: 06/16/18 Note: Progress Note Critical Care 24 hour events/significant events: -no sig overnight events; she remains intubated and sedated; on propofol/ fentanyl/precedex. There was increase in propofol overnight -BP stable, no pressors required -boyfriend at bedside. Tele: sinus tachy Vitals: Vital Signs Temp 97.0 F 06/16/18 14:00 Pulse 63 06/16/18 14:00 Resp 16 06/16/18 14:00 BP 95/57 06/16/18 14:00 Pulse Ox 98 06/16/18 14:00 Intake & Output 06/15/18 06/16/18 06/16/18 18:59 06:59 18:59 Intake Total 2261 2300 1301.2 Output Total 620 505 255 Balance 1641 1795 1046.2 Weight 70.3 kg Intake: IV Fluids 969 NS (0.9%) 969 IVPB 1763 1742 95 ABX - VANCOMYCIN 166 ABX - ZOSYN 95 KCl 42 56 NS (0.9%) 1555 1486 pipercillen 200 Medicated IV 468 430 237.2 CC - Dexmedetomidine/ 91 148 75.2 Precedex CC - Propofol/Diprivan 377 282 162 Tube Feeding 30 128 Output: Jin 560 505 255 Straight Cath 50 Estimated Blood Loss 10 O2/Vent: 30% fio2 on AC mode vent Infusions: propofol 35, fentanyl 25, precedex 0.6, NS 125 Medications: Acetaminophen (Tylenol Tab*) 650 mg PO Q4H PRN PRN Reason: FEVER/PAIN Chlorhexidine Gluconate (Peridex Mouth Wash 0.12%*) 15 ml TOPICAL Q4H [facility] Last Admin: 06/16/18 16:44 Dose: 15 ml Heparin Sodium (Porcine) (Heparin Vial(*)) 5,000 units SUBCUT Q8HR [facility] Last Admin: 06/16/18 13:01 Dose: 5,000 units Hydromorphone HCl (Dilaudid Inj*) 1 mg IV SLOW PU Q4H PRN PRN Reason: PAIN Last Admin: 06/16/18 11:27 Dose: 1 mg Sodium Chloride (Ns 0.9% 1000 Ml*) 1,000 mls @ 125 mls/hr IV PER RATE [facility] Last Admin: 06/16/18 11:51 Dose: 125 mls/hr Propofol (Diprivan*) 100 mls @ 2.041 mls/hr IV .(Initial Rate) [facility]; Protocol Last Admin: 06/16/18 14:00 Dose: 17.8 mls/hr Fentanyl Citrate (Fentanyl Charge Hand*) 20 mls @ 0.5 mls/hr [employer] Q24H [facility]; Protocol Last Admin: 06/15/18 06:55 Dose: 0.5 mls/hr Piperacillin Sod/Tazobactam (Sod 3.375 gm/ Sodium Chloride) 100 mls @ 25 mls/ hr IVPB Q8H [facility] Last Admin: 06/16/18 16:44 Dose: 25 mls/hr Dexmedetomidine HCl 400 mcg/ (Sodium Chloride) 100 mls @ 11.56 mls/hr IVPB Q8H [facility]; Protocol Last Admin: 06/16/18 11:51 Dose: 9.9 mls/hr Lorazepam (Ativan Inj*) 1 mg IV PUSH Q6H PRN PRN Reason: ANXIETY Last Admin: 06/16/18 13:27 Dose: 1 mg Ondansetron HCl (Zofran Inj*) 4 mg IV Q4H [facility] Last Admin: 06/16/18 13:01 Dose: 4 mg Pantoprazole Sodium (Protonix Iv*) 40 mg IV DAILY [facility] Last Admin: 06/16/18 09:39 Dose: 40 mg Physical Exam: General: intubated, sedated Head: normocephalic, atraumatic HEENT: no pallor, no icterus, moist mucous membranes Neck: soft, supple CVS: tachy, regular, no murmur Resp: bilateral air entry, no rhales, no wheeze, no rhonchi, no acc muscle use Abdomen: soft, nontender, nondistended, bowel sounds present; RLQ cellulitus/ erythema+, without drainage Ext: pulses+, warm, no edema; left foot wound in dressing, drain+ Skin: as above; right hand cellulitus site smaller Neuro: intubated, sedated Labs: Laboratory Results - last 24 hr 06/15/18 06/15/18 06/16/18 20:02 23:59 03:55 WBC RBC Hgb Hct MCV MCH MCHC RDW Plt Count MPV Neut % (Auto) Lymph % (Auto) [place] % (Auto) Eos % (Auto) Baso % (Auto) Absolute Neuts (auto) Absolute Lymphs (auto) Absolute Monos (auto) Absolute Eos (auto) Absolute Basos (auto) Absolute Nucleated RBC Nucleated RBC % Sodium Potassium Chloride Carbon Dioxide Anion Gap BUN Creatinine Est GFR ( Amer) Est GFR (Non-Af Amer) BUN/Creatinine Ratio Glucose POC Glucose (mg/dL) 77 101 H 95 Calcium Magnesium Vancomycin Trough 06/16/18 06/16/18 06/16/18 05:35 05:47 08:43 WBC 5.2 RBC 3.49 L Hgb 10.2 L Hct 30 L MCV 87 MCH 29 MCHC 34 RDW 15 Plt Count 181 MPV 9.4 Neut % (Auto) 54.9 Lymph % (Auto) 28.4 [place] % (Auto) 6.7 Eos % (Auto) 9.5 H Baso % (Auto) 0.5 Absolute Neuts (auto) 2.8 Absolute Lymphs (auto) 1.5 Absolute Monos (auto) 0.3 Absolute Eos (auto) 0.5 Absolute Basos (auto) 0 Absolute Nucleated RBC 0 Nucleated RBC % 0 Sodium 143 Potassium 3.5 Chloride 115 H Carbon Dioxide 22 Anion Gap 6 BUN 4 L Creatinine 0.45 L Est GFR ( Amer) 194.2 Est GFR (Non-Af Amer) 160.5 BUN/Creatinine Ratio 8.9 Glucose 86 POC Glucose (mg/dL) 99 Calcium 7.8 L Magnesium 1.7 L Vancomycin Trough < 2.0 06/16/18 12:15 WBC RBC Hgb Hct MCV MCH MCHC RDW Plt Count MPV Neut % (Auto) Lymph % (Auto) [place] % (Auto) Eos % (Auto) Baso % (Auto) Absolute Neuts (auto) Absolute Lymphs (auto) Absolute Monos (auto) Absolute Eos (auto) Absolute Basos (auto) Absolute Nucleated RBC Nucleated RBC % Sodium Potassium Chloride Carbon Dioxide Anion Gap BUN Creatinine Est GFR ( Amer) Est GFR (Non-Af Amer) BUN/Creatinine Ratio Glucose POC Glucose (mg/dL) 100 Calcium Magnesium Vancomycin Trough Imaging: cxr 06/16 - ett above [place], no effusion/ptx/infiltrate tte 06/16 - lvef intact, no vegetations noted, reviewed report Assessment: 33y F w/pmhx of IVDA of heroin and MDMA; recently developed left leg swelling, comes to ER and found to have cellulitus of foot and abscess on imaging. She is s/p I&D 06/14. She was intubated in the OR, but since then has been a difficult wean with agitation on sedation weaning. -Severe Sepsis -Left foot Strept pyogenes cellulitus/abscess -right hand and right lower abd cellulitus -Metabolic/toxic encephalopathy -Acute respiratory failuire, unspecified IVDA Bipolar/anxiety/depression Plan: Neuro- on prop/fent/precedex. likely to have some underlying withdrawal. cont precedex. tolerating prn dilaudid. cont to dec propofol, d/c fentanyl for now. if not improved mental status on less sedatives, will consider CT brain. will give some opiates to bridge withdrawal. neurochecks. CVS- BP stable, tachy though. no pressors. making urine. positive balance. dec NS to 50cc/hr. IV abx. Resp- intubated, 30%. ABG as needed. CXR without acute lung pathology. Weaning delayed due to mental status/sedation. no secretions. VAP bundle. ID- afebrile now. wbc normalized. Blood cx neg. Wound cx strept+. off vanco now. Cont zosyn (day#2). TTE neg for vegetations. Left leg cellulitus/abscess + other sites of possible injection with cellulitus (right hand and RLQ abdomen). GI- cont tube feeds promote, tolerating. cont PPI Renal- Cr okay. Na 140s. may need 1/2 NS tomorrow. Replete IV KCL 20meq for hypokalemia. may need trial lasix tomorrow, re-eval then. Heme- hg stable, plt stable. Endo- fingersticks as needed Musculsk- pressure ulcer prophylaxis. Bedrest. Wounds- left foot I&D, dressing intact, surgery followup, drain+; wound care to right hand cellulitus and right lower abd cellulitus Nutrition- ngt promote feeds DVT prophylaxis: heparin sq GI prophylaxis: ppi Central Line: RIJ Arterial Line: no Jin Cathetor: yes Disposition: ICU Code Status: full code Total Critical Care time is 50 minutes, excluding procedures/teaching Harsh Coley MD Manager Environmental (Electronically Signed)
[2018-06-16] MEDS ORDERED: Ondansetron INJ* 2 MG/ML VIAL IV PRN (17:01)
[2018-06-16] MEDS: KCL 20 MEQ/100 ML IVPREMIX* 20 MEQ/100 ML BAG IV SCH ×2 (17:29→19:42)
[2018-06-16] MEDS: fentaNYL PCA* 20 ML PCA SCH (20:55)
[2018-06-17] MEDS: fentaNYL PCA* 20 ML PCA SCH (00:14)
[2018-06-17] MEDS: Propofol* 100 ML IV SCH ×2 (00:41→04:53)
[2018-06-17] MEDS: Piperacillin/Tazobac ADVAN(*) 3.375 GM in NS 0.9% 100 ML* 100 ML IVPB SCH ×3 (00:51→17:11)
[2018-06-17] MEDS: Chlorhexidine MOUTHWASH 0.12%* 15 ML UDC TOPICAL SCH ×4 (00:52→19:29)
[2018-06-17] MEDS: LORazepam INJ* 2 MG/ML 1 ML VIAL IV PUSH PRN ×3 (01:06→21:37)
[2018-06-17] MEDS: HYDROmorphone INJ* 0.5 MG/0.5 ML SYRINGE IV SLOW PU PRN ×4 (01:15→20:25)
[2018-06-17 06:35] LABS: Hematocrit 31 % (35-47); Hemoglobin 10.4 g/dl (12.0-16.0); Mean Corpuscular HGB Conc 34 g/dl (31-36); Mean Corpuscular Hemoglobin 29 pg (27-31); Mean Corpuscular Volume 86 fL (80-97); Mean Platelet Volume 9.3 um3 (7.4-10.4); Platelet Count 201 10^3/ul (150-450); Red Blood Count 3.55 10^6/ul (4.00-5.40); Red Cell Distribution Width 15 % (10.5-15); White Blood Count 5.5 10^3/ul (3.5-10.8)
[2018-06-17 06:51] LABS: EGFR Non-African American 169.1 (>60)
[2018-06-17] MEDS: Dexmedetomidine* 400 MCG in NS 0.9% 100 ML* 96 ML IVPB SCH (06:51)
[2018-06-17] MEDS: Pantoprazole IV* 40 MG IV SCH (07:50)
--- NOTE | 2018-06-17 10:59 | PN ---
Progress Note - Progress Note Date of Service: 06/17/18 Note: Progress Note Critical Care 24 hour events/significant events: -no sig overnight events; she remains intubated and sedated; on propofol/ precedex. -BP stable, no pressors required -boyfriend at bedside. -awake this morning, more responsive, on precedex now only Tele: sinus tachy Vitals: Vital Signs Temp 98.8 F 06/17/18 07:30 Pulse 72 06/17/18 07:30 Resp 20 06/17/18 07:00 BP 101/60 06/17/18 07:30 Pulse Ox 93 06/17/18 11:02 Intake & Output 06/16/18 06/17/18 06/17/18 18:59 06:59 18:59 Intake Total 1301.2 2264.6 Output Total 415 1004 220 Balance 886.2 1260.6 -220 Weight 73.21 kg Intake: IV Fluids 969 1366.8 ABX - ZOSYN 1086 KCl 204 NS (0.9%) 969 76.8 IVPB 95 232 ABX - ZOSYN 95 232 Medicated IV 237.2 498.8 CC - Dexmedetomidine/ 75.2 190.8 Precedex CC - Propofol/Diprivan 162 308 Tube Feeding 167 Output: Jin 415 884 220 Tube Feeding Residual 120 0 Amount Wasted O2/Vent: 30% fio2 on AC Infusions: propofol held, precedex 0.5, NS 125 Medications: Acetaminophen (Tylenol Tab*) 650 mg PO Q4H PRN PRN Reason: FEVER/PAIN Chlorhexidine Gluconate (Peridex Mouth Wash 0.12%*) 15 ml TOPICAL Q4H [facility] Last Admin: 06/17/18 07:49 Dose: 15 ml Heparin Sodium (Porcine) (Heparin Vial(*)) 5,000 units SUBCUT Q8HR [facility] Last Admin: 06/16/18 22:06 Dose: 5,000 units Hydromorphone HCl (Dilaudid Inj*) 1 mg IV SLOW PU Q4H PRN PRN Reason: PAIN Last Admin: 06/17/18 01:15 Dose: 1 mg Piperacillin Sod/Tazobactam (Sod 3.375 gm/ Sodium Chloride) 100 mls @ 25 mls/ hr IVPB Q8H [facility] Last Admin: 06/17/18 07:49 Dose: 25 mls/hr Dexmedetomidine HCl 400 mcg/ (Sodium Chloride) 100 mls @ 11.56 mls/hr IVPB Q8H [facility]; Protocol Last Admin: 06/17/18 06:51 Dose: 8.3 mls/hr Sodium Chloride (Ns 0.45% 1000 Ml Bag*) 1,000 mls @ 50 mls/hr IV PER RATE [facility] Lorazepam (Ativan Inj*) 1 mg IV PUSH Q6H PRN PRN Reason: ANXIETY Last Admin: 06/17/18 06:05 Dose: 1 mg Ondansetron HCl (Zofran Inj*) 4 mg IV Q4H PRN PRN Reason: NAUSEA/VOMITING Pantoprazole Sodium (Protonix Iv*) 40 mg IV DAILY [facility] Last Admin: 06/17/18 07:50 Dose: 40 mg Physical Exam: General: intubated, sedated, awakens, follows commands Head: normocephalic, atraumatic HEENT: no pallor, no icterus, moist mucous membranes Neck: soft, supple CVS: tachy, regular, no murmur Resp: bilateral air entry, no rhales, no wheeze, no rhonchi, no acc muscle use Abdomen: soft, nontender, nondistended, bowel sounds present; RLQ cellulitus/ erythema+, without drainage Ext: pulses+, warm, no edema; left foot wound in dressing, drain+ Skin: as above; right hand cellulitus site smaller Neuro: intubated, sedated Labs: Laboratory Results - last 24 hr 06/16/18 06/16/18 06/16/18 12:15 17:13 20:54 WBC RBC Hgb Hct MCV MCH MCHC RDW Plt Count MPV Sodium Potassium Chloride Carbon Dioxide Anion Gap BUN Creatinine Est GFR ( Amer) Est GFR (Non-Af Amer) BUN/Creatinine Ratio Glucose POC Glucose (mg/dL) 100 87 95 Calcium Total Bilirubin Direct Bilirubin Indirect Bilirubin AST ALT Alkaline Phosphatase Total Protein Albumin Globulin Albumin/Globulin Ratio 06/17/18 06/17/18 06/17/18 00:12 04:07 06:20 WBC RBC Hgb Hct MCV MCH MCHC RDW Plt Count MPV Sodium 143 Potassium 3.7 Chloride 114 H Carbon Dioxide 22 Anion Gap 7 BUN 2 L Creatinine 0.43 L Est GFR ( Amer) 204.6 Est GFR (Non-Af Amer) 169.1 BUN/Creatinine Ratio 4.7 L Glucose 103 H POC Glucose (mg/dL) 87 105 H Calcium 7.7 L Total Bilirubin 0.30 Direct Bilirubin 0.10 Indirect Bilirubin 0.2 L AST 15 ALT 10 Alkaline Phosphatase 85 Total Protein 5.2 L Albumin 2.3 L Globulin 2.9 Albumin/Globulin Ratio 0.8 L 06/17/18 06/17/18 06:20 08:30 WBC 5.5 RBC 3.55 L Hgb 10.4 L Hct 31 L MCV 86 MCH 29 MCHC 34 RDW 15 Plt Count 201 MPV 9.3 Sodium Potassium Chloride Carbon Dioxide Anion Gap BUN Creatinine Est GFR ( Amer) Est GFR (Non-Af Amer) BUN/Creatinine Ratio Glucose POC Glucose (mg/dL) 133 H Calcium Total Bilirubin Direct Bilirubin Indirect Bilirubin AST ALT Alkaline Phosphatase Total Protein Albumin Globulin Albumin/Globulin Ratio Imaging: cxr 06/16 - ett above [place], no effusion/ptx/infiltrate TTE 06/16 - lvef intact, no vegetations noted, reviewed report Assessment: 33y F w/pmhx of IVDA of heroin and MDMA; recently developed left leg swelling, comes to ER and found to have cellulitus of foot and abscess on imaging. She is s/p I&D 06/14. She was intubated in the OR, but since then has been a difficult wean with agitation on sedation weaning. -Severe Sepsis -Left foot Strept pyogenes cellulitus/abscess -right hand and right lower abd cellulitus -Metabolic/toxic encephalopathy -Acute respiratory failure, unspecified IVDA Bipolar/anxiety/depression Plan: Neuro- on precedex now only; follows commands. will d/c precedex now and other sedatives. weaning underway. CVS- BP stable, tachy though. no pressors. making urine. start 1/2 NS 50cc/hr. Resp- intubated, 30%. FOllows commands. on cpap 08/08, doing well, changed to 03/08 , now extubated to aerosol mask, good cough. ID- tmax 99. wbc 5. Blood cx neg. Wound cx strept+. off vanco now. Cont zosyn ( day#3). TTE neg for vegetations. Left leg cellulitus/abscess + other sites of possible injection with cellulitus (right hand and RLQ abdomen). GI- d/c tube feeds for now; swallow eval later today. maintain NGT for now. PPI IV. Renal- Cr okay. Na 140s. start 1/2 NS 50cc/hr. positive balance. hold lasix for now. Heme- hg stable, plt stable. Endo- fingersticks as needed Musculsk- pressure ulcer prophylaxis. Bedrest. oob to chair alter todya if able Wounds- left foot I&D, dressing intact, surgery followup, drain+; wound care to right hand cellulitus and right lower abd cellulitus Nutrition- ngt promote feeds DVT prophylaxis: heparin sq GI prophylaxis: ppi Central Line: RIJ; can d/c later if good peripherals Arterial Line: no Jin Cathetor: yes Disposition: ICU Code Status: full code Total Critical Care time is 45 minutes, excluding procedures/teaching Harsh Coley MD Rn Or Lpn (Electronically Signed)
[2018-06-17] MEDS ORDERED: D5W 1000 ML BAG* 1,000 ML IV SCH (12:00)
[2018-06-17] MEDS: NS 0.45% 1000 ML BAG* 1,000 ML IV SCH (12:59)
[2018-06-17] MEDS: Heparin VIAL(*) 5000 UNITS/ML VIAL (FIVE THOUSAND) SUBCUT SCH ×3 (13:18→21:37)
[2018-06-17] MEDS ORDERED: HYDROmorphone INJ* 0.5 MG/0.5 ML SYRINGE IV SLOW PU ONE ×2 (17:04→22:37)
--- NOTE | 2018-06-17 17:31 | PN ---
Progress Note - Progress Note Date of Service: 06/17/18 SOAP: Subjective: []Patient seen at bedside. She is awake and alert today, her foot is painful. Objective: []General: NAD Left foot splint left in place, repadded. Skin of dorsum of foot is with erythema and incision is CDI. Sensation intact to exposed toes. Cap refill less than two seconds distally. Right hand erythema almost entirely resolved, edema improving. Using her hand without pain Assessment: []Abscess left foot Right hand cellulitis monitoring for abscess Plan: []R hand improving does not require washout left foot will require splint change, likely tomorrow
[2018-06-18] MEDS: HYDROmorphone INJ* 0.5 MG/0.5 ML SYRINGE IV SLOW PU PRN ×6 (00:23→20:09)
[2018-06-18] MEDS: Piperacillin/Tazobac ADVAN(*) 3.375 GM in NS 0.9% 100 ML* 100 ML IVPB SCH ×3 (00:36→17:02)
[2018-06-18 04:50] LABS: Hematocrit 32 % (35-47); Hemoglobin 10.7 g/dl (12.0-16.0); Mean Corpuscular HGB Conc 34 g/dl (31-36); Mean Corpuscular Hemoglobin 29 pg (27-31); Mean Corpuscular Volume 86 fL (80-97); Mean Platelet Volume 9.1 um3 (7.4-10.4); Platelet Count 238 10^3/ul (150-450); Red Blood Count 3.69 10^6/ul (4.00-5.40); Red Cell Distribution Width 15 % (10.5-15); White Blood Count 6.8 10^3/ul (3.5-10.8)
[2018-06-18 05:05] LABS: EGFR Non-African American 160.5 (>60)
[2018-06-18] MEDS: LORazepam INJ* 2 MG/ML 1 ML VIAL IV PUSH PRN ×3 (05:59→20:12)
[2018-06-18] MEDS: Heparin VIAL(*) 5000 UNITS/ML VIAL (FIVE THOUSAND) SUBCUT SCH ×3 (06:04→20:14)
[2018-06-18] MEDS: Omeprazole CAP* 20 MG PO SCH (08:39)
[2018-06-18] MEDS ORDERED: KCL 20 MEQ/100 ML IVPREMIX* 20 MEQ/100 ML BAG IV SCH (09:00)
[2018-06-18] MEDS: Acetaminophen TAB* 325 MG PO PRN (13:08)
[2018-06-18] MEDS: Potassium Chlor TAB* 10 MEQ TAB.ER PO SCH ×3 (13:36→20:10)
--- NOTE | 2018-06-18 13:37 | PN ---
Subjective Date of Service: 06/18/18 Interval History: C/O pain L foot, R flank. No bowel c/o. Poor appetite. Objective Active Medications: Acetaminophen (Tylenol Tab*) 650 mg PO Q4H PRN PRN Reason: FEVER/PAIN Last Admin: 06/18/18 13:08 Dose: 650 mg Heparin Sodium (Porcine) (Heparin Vial(*)) 5,000 units SUBCUT Q8HR [facility] Last Admin: 06/18/18 06:04 Dose: 5,000 units Hydromorphone HCl (Dilaudid Inj*) 1 mg IV SLOW PU Q3H PRN PRN Reason: PAIN Piperacillin Sod/Tazobactam (Sod 3.375 gm/ Sodium Chloride) 100 mls @ 25 mls/ hr IVPB Q8H [facility] Last Admin: 06/18/18 08:39 Dose: 25 mls/hr Sodium Chloride (Ns 0.45% 1000 Ml Bag*) 1,000 mls @ 50 mls/hr IV PER RATE [facility] Last Admin: 06/17/18 12:59 Dose: 50 mls/hr Lorazepam (Ativan Inj*) 1 mg IV PUSH Q6H PRN PRN Reason: ANXIETY Last Admin: 06/18/18 13:08 Dose: 1 mg Omeprazole (Prilosec Cap*) 20 mg PO DAILY@0730 [facility] Last Admin: 06/18/18 08:39 Dose: 20 mg Ondansetron HCl (Zofran Inj*) 4 mg IV Q4H PRN PRN Reason: NAUSEA/VOMITING Potassium Chloride (Klor Con Er Tab*) 20 meq PO TID [facility] Vital Signs - 8 hr 06/18/18 06/18/18 06/18/18 05:59 06:04 07:47 Temperature Pulse Rate 98 Respiratory 17 17 18 Rate Blood Pressure 123/64 (mmHg) O2 Sat by Pulse 95 Oximetry 06/18/18 06/18/18 06/18/18 08:00 08:36 08:40 Temperature Pulse Rate Respiratory 20 18 18 Rate Blood Pressure (mmHg) O2 Sat by Pulse 95 Oximetry 06/18/18 06/18/18 06/18/18 11:22 11:34 11:37 Temperature 99.7 F Pulse Rate 102 Respiratory 22 18 Rate Blood Pressure 125/69 (mmHg) O2 Sat by Pulse 98 Oximetry 06/18/18 06/18/18 13:07 13:08 Temperature Pulse Rate Respiratory 18 18 Rate Blood Pressure (mmHg) O2 Sat by Pulse Oximetry Oxygen Devices in Use Now: None Appearance: Alert, partly up in bed. In good spirits. Looks comfortable. Eyes: No Scleral Icterus Respiratory: Symmetrical Chest Expansion and Respiratory Effort, Clear to Auscultation, Clear to Percussion Cardiovascular: NL Sounds; No Murmurs; No JVD, RRR, No Edema, - Extremities: No Edema, No Clubbing, Cyanosis, - Skin: No Nodules or Sclerosis, - - R flank raised red area 6 x 4 cm, sl tender, no drainage, center abraded. L foot dorsum wound with stitches, sl red, serosnaguinous drainage. Neurological: Alert and Oriented x 3, NL Sensation Result Diagrams: 06/18/18 04:40 06/18/18 04:40 Microbiology and Other Data: Microbiology 06/14/18 13:00 Aerobic Blood Culture - Preliminary Blood Venous No Growth Day 4 Anaerobic Blood Culture - Preliminary No Growth Day 4 06/14/18 11:32 Anaerobic Culture - Final Wound - Left Skin and Soft Tissue MRSA/MSSA (PCR - Final Mrsa Negative S.aureus Negative Gram Stain - Final Wound Culture - Final Strep Pyogenes (Grp A) 06/14/18 14:53 Blood Culture - Preliminary Blood Venous No Growth Day 3 06/13/18 19:49 Urine Culture - Final Urine Strep Group B Normal [place] 06/14/18 03:00 Nasal Screen MRSA (PCR) - Final Nasal Mrsa Detected Assess/Plan/Problems-Billing Assessment: - Patient Problems (1) Abscess of left foot Current Visit: Yes Status: Acute Code(s): L02.612 - CUTANEOUS ABSCESS OF LEFT FOOT SNOMED Code(s): 665399875 Comment: S/P I&D. Dressing changed by Jeremy Burton 06/18. Continue pip/adeola a few more days, consider oral antibiotic soon. (2) Cellulitis of right abdominal wall Current Visit: Yes Status: Acute Code(s): L03.311 - CELLULITIS OF ABDOMINAL WALL SNOMED Code(s): 99105670 Comment: Phlegmon clinically. Antibiotics as above. (3) IV drug abuse Current Visit: Yes Status: Acute Code(s): F19.10 - OTHER PSYCHOACTIVE SUBSTANCE ABUSE, UNCOMPLICATED SNOMED Code(s): 320663960 Comment: Dx noted. (4) Tobacco abuse Current Visit: Yes Status: Acute Code(s): Z72.0 - TOBACCO USE SNOMED Code( s): 825703091 Comment: Pt advised to quit smoking and avoid second hand smoke.
--- NOTE | 2018-06-18 13:55 | PN ---
Progress Note - Progress Note Date of Service: 06/18/18 SOAP: Subjective: []Patient seen and examined today. Her left foot and right hand are not painful today. Objective: []General: NAD LLE: Splint changed. Dorsum of foot with sloughing off skin surrounding the incision which is CDI. Moderate erythema and edema remains, there is mild warmth. No fluctuance and no tracking of erythema proximally. Sensation intact to light touch and capillary refill less than two seconds distally. RUE: moving hand well, erythema almost entirely resolved. Remains mildly edematous, moving hand well. Assessment: []abscess left foot cellulitis right hand, improving Plan: []NWB LLE, splint to remain CDI Will continue to follow
[2018-06-18] MEDS: NS 0.45% 1000 ML BAG* 1,000 ML IV SCH (17:01)
[2018-06-19] MEDS: Piperacillin/Tazobac ADVAN(*) 3.375 GM in NS 0.9% 100 ML* 100 ML IVPB SCH ×3 (01:08→16:33)
[2018-06-19] MEDS: HYDROmorphone INJ* 0.5 MG/0.5 ML SYRINGE IV SLOW PU PRN ×6 (01:09→20:04)
[2018-06-19] MEDS: LORazepam INJ* 2 MG/ML 1 ML VIAL IV PUSH PRN (04:46)
[2018-06-19] MEDS: Heparin VIAL(*) 5000 UNITS/ML VIAL (FIVE THOUSAND) SUBCUT SCH ×3 (07:12→20:02)
[2018-06-19] MEDS: Omeprazole CAP* 20 MG PO SCH (09:08)
[2018-06-19] MEDS: Potassium Chlor TAB* 10 MEQ TAB.ER PO SCH ×3 (09:08→20:04)
[2018-06-19] MEDS ORDERED: Nicotine Inhaler* 10 MG AMP INH PRN (10:13)
[2018-06-19] MEDS ORDERED: Mouth Piece, Nicotine* 1 EACH CARTRIDGE INH PRN (10:13)
--- NOTE | 2018-06-19 10:22 | PN ---
Subjective Date of Service: 06/19/18 Interval History: C/O pain L foot. Objective Active Medications: Acetaminophen (Tylenol Tab*) 650 mg PO Q4H PRN PRN Reason: FEVER/PAIN Last Admin: 06/18/18 13:08 Dose: 650 mg Device (Nicotine Mouth Piece*) 1 each INH .USE WITH NICOTROL PRN PRN Reason: CRAVING Heparin Sodium (Porcine) (Heparin Vial(*)) 5,000 units SUBCUT Q8HR [facility] Last Admin: 06/19/18 07:12 Dose: Not Given Hydromorphone HCl (Dilaudid Inj*) 0.5 mg IV SLOW PU Q3H PRN PRN Reason: PAIN Piperacillin Sod/Tazobactam (Sod 3.375 gm/ Sodium Chloride) 100 mls @ 25 mls/ hr IVPB Q8H [facility] Last Admin: 06/19/18 09:08 Dose: 25 mls/hr Nicotine (Nicotine Inhaler*) 10 mg INH Q2H PRN PRN Reason: CRAVING Nicotine (Nicotine Patch 7 Mg/24 Hr*) 1 patch TRANSDERM DAILY [facility] Omeprazole (Prilosec Cap*) 20 mg PO DAILY@0730 [facility] Last Admin: 06/19/18 09:08 Dose: 20 mg Ondansetron HCl (Zofran Inj*) 4 mg IV Q4H PRN PRN Reason: NAUSEA/VOMITING Potassium Chloride (Klor Con Er Tab*) 20 meq PO TID [facility] Last Admin: 06/19/18 09:08 Dose: 20 meq Vital Signs - 8 hr 06/19/18 06/19/18 06/19/18 04:29 04:46 04:47 Temperature 97.5 F Pulse Rate 77 Respiratory 16 16 16 Rate Blood Pressure 102/81 (mmHg) O2 Sat by Pulse 98 Oximetry 06/19/18 06/19/18 06/19/18 06:00 06:24 09:19 Temperature Pulse Rate Respiratory 16 16 16 Rate Blood Pressure (mmHg) O2 Sat by Pulse Oximetry Oxygen Devices in Use Now: None Appearance: Alert, sitting up in bed. Emotionally labile, generally looks comfortable. Eyes: No Scleral Icterus Extremities: No Edema, No Clubbing, Cyanosis, - - L lower leg and foot bandaged Skin: No Rash or Ulcers, No Nodules or Sclerosis, - Neurological: Alert and Oriented x 3, NL Sensation Result Diagrams: 06/18/18 04:40 06/18/18 04:40 Microbiology and Other Data: Microbiology 06/14/18 13:00 Aerobic Blood Culture - Preliminary Blood Venous No Growth Day 4 Anaerobic Blood Culture - Preliminary No Growth Day 4 06/14/18 11:32 Anaerobic Culture - Final Wound - Left Skin and Soft Tissue MRSA/MSSA (PCR - Final Mrsa Negative S.aureus Negative Gram Stain - Final Wound Culture - Final Strep Pyogenes (Grp A) 06/14/18 14:53 Blood Culture - Preliminary Blood Venous No Growth Day 3 06/13/18 19:49 Urine Culture - Final Urine Strep Group B Normal [place] 06/14/18 03:00 Nasal Screen MRSA (PCR) - Final Nasal Mrsa Detected Assess/Plan/Problems-Billing Assessment: - Patient Problems (1) Abscess of left foot Current Visit: Yes Status: Acute Code(s): L02.612 - CUTANEOUS ABSCESS OF LEFT FOOT SNOMED Code(s): 587118726 Comment: S/P I&D. Dressing changed by Jeremy Burton 06/18. Continue pip/adeola a few more days, consider oral antibiotic soon. (2) Cellulitis of right abdominal wall Current Visit: Yes Status: Acute Code(s): L03.311 - CELLULITIS OF ABDOMINAL WALL SNOMED Code(s): 27534859 Comment: Phlegmon clinically. Antibiotics as above. (3) IV drug abuse Current Visit: Yes Status: Acute Code(s): F19.10 - OTHER PSYCHOACTIVE SUBSTANCE ABUSE, UNCOMPLICATED SNOMED Code(s): 452524454 Comment: Pt had another somnolent spell AM 06/19, lying on floor of shower with water running. Dr. Barrett will do a pain consult 06/19. Oral oxycodone/ APAP ordered, IV hydromoprhone dose decreased, lorazepam d/c'd on 06/19. (4) Tobacco abuse Current Visit: Yes Status: Acute Code(s): Z72.0 - TOBACCO USE SNOMED Code( s): 886698826 Comment: Pt advised to quit smoking and avoid second hand smoke. NRT ordered.
--- NOTE | 2018-06-19 10:36 | PN ---
"Progress Note - Progress Note Date of Service: 06/19/18 Note: Search Terms: nilton ayoub, 1985 Search Date: 06/19/2018 10:34:39 AM The Drug Utilization Report below displays all of the controlled substance prescriptions, if any, that your patient has filled in the last twelve months. The information displayed on this report is compiled from pharmacy submissions to the Department, and accurately reflects the information as submitted by the pharmacies. This report was requested by: Farhan Yao | Reference #: [id number] There are no results for the search terms that you entered."
--- NOTE | 2018-06-19 11:29 | PN ---
Progress Note - Progress Note Date of Service: 06/19/18 SOAP: Subjective: []Patient seen at bedside. Her splint feels tight around the anterior ankle but not painful. She questions how long she will be admitted but otherwise has no complaints. Discussed plans post discharge, patient is ready and willing to go to drug rehab, she hopes her significant other will attend as well. Objective: []General: NAD LLE: Splint padding adjusted and patient confirms comfort. No erythema or breakdown of exposed skin. Able to wiggle toes, sensation intact to light touch distally. RUE: No longer erythematous or edematous, uses hand well without pain. Assessment: []abscess left foot cellulitis right hand, improving Plan: []NWB LLE, splint to remain CDI Will continue to follow Social work consult placed to discuss rehab post hospital stay
[2018-06-19] MEDS: Nicotine PATCH 7 MG/24 HR* PATCH TRANSDERM SCH (13:00)
[2018-06-19] MEDS: diPHENhydraMINE PO* 25 MG PO PRN (13:02)
[2018-06-19] MEDS: oxyCODONE/Acetamin 5/325 MG* TAB PO PRN ×2 (13:55→17:53)
--- NOTE | 2018-06-19 15:30 | CONS ---
CONSULTATION REPORT: DATE OF CONSULT: 06/19/18 PROVIDER: Andria Tate NP, Psychiatry. SUPERVISING PHYSICIAN: Lokesh Nichols MD The consult was ordered by Shin Yao MD [employer] HERE ANDRIA TATE, CHRISTY [id number]/[facility] #: [id number]
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
[2018-06-19] MEDS: Methadone TAB* 5 MG PO SCH (21:40)
[2018-06-20] MEDS: Piperacillin/Tazobac ADVAN(*) 3.375 GM in NS 0.9% 100 ML* 100 ML IVPB SCH ×3 (00:48→17:53)
[2018-06-20] MEDS: Heparin VIAL(*) 5000 UNITS/ML VIAL (FIVE THOUSAND) SUBCUT SCH ×3 (05:28→21:13)
[2018-06-20 06:39] LABS: ABS Basophils 0.1 10^3/ul (0-0.2); ABS Eosinophils 0.8 10^3/ul (0-0.6); ABS Lymphocytes 2.2 10^3/ul (1.0-4.8); ABS Monocytes 0.5 10^3/ul (0-0.8); ABS Neutrophils 1.6 10^3/ul (1.5-7.7); ABS Nucleated RBC 0 10^3/ul; Eosinophil % 15.7 % (0-6); Hematocrit 37 % (35-47); Hemoglobin 12.3 g/dl (12.0-16.0); Lymphocyte % 42.9 % (25-47); Mean Corpuscular HGB Conc 34 g/dl (31-36); Mean Corpuscular Hemoglobin 29 pg (27-31); Mean Corpuscular Volume 86 fL (80-97); Mean Platelet Volume 8.9 um3 (7.4-10.4); Nucleated Red Blood Cells % 0; Platelet Count 298 10^3/ul (150-450); Red Blood Count 4.27 10^6/ul (4.00-5.40); Red Cell Distribution Width 14 % (10.5-15)
[2018-06-20 06:57] LABS: EGFR Non-African American 142.1 (>60)
[2018-06-20] MEDS: Omeprazole CAP* 20 MG PO SCH (09:51)
[2018-06-20] MEDS: Nicotine PATCH 7 MG/24 HR* PATCH TRANSDERM SCH (09:51)
[2018-06-20] MEDS: Potassium Chlor TAB* 10 MEQ TAB.ER PO SCH ×3 (09:51→21:13)
[2018-06-20] MEDS: Methadone TAB* 5 MG PO SCH ×3 (09:52→21:12)
--- NOTE | 2018-06-20 13:56 | PN ---
Subjective Date of Service: 06/20/18 Interval History: Pt denies fever or chills. No diarrhea. reports pain is controlled. States she is interested in inpatient rehab with [facility] but would like to go home first. Social work following. Pt states understanding that this could have been very serious and she could have lost her foot and if this doesnt heal well she could get very sick and/or loose her foot. She reports she will be compliant with her PO antibiotics at home. Objective Active Medications: Acetaminophen (Tylenol Tab*) 650 mg PO Q4H PRN PRN Reason: FEVER/PAIN Last Admin: 06/18/18 13:08 Dose: 650 mg Device (Nicotine Mouth Piece*) 1 each INH .USE WITH NICOTROL PRN PRN Reason: CRAVING Diphenhydramine HCl (Benadryl Po*) 25 mg PO Q4H PRN PRN Reason: ITCHING Last Admin: 06/19/18 13:02 Dose: 25 mg Heparin Sodium (Porcine) (Heparin Vial(*)) 5,000 units SUBCUT Q8HR [facility] Last Admin: 06/20/18 05:28 Dose: Not Given Piperacillin Sod/Tazobactam (Sod 3.375 gm/ Sodium Chloride) 100 mls @ 25 mls/ hr IVPB Q8H [facility] Last Admin: 06/20/18 09:51 Dose: 25 mls/hr Methadone HCl (Dolophine Tab*) 5 mg PO TID [facility] Last Admin: 06/20/18 09:52 Dose: 5 mg Nicotine (Nicotine Inhaler*) 10 mg INH Q2H PRN PRN Reason: CRAVING Nicotine (Nicotine Patch 7 Mg/24 Hr*) 1 patch TRANSDERM DAILY [facility] Last Admin: 06/20/18 09:51 Dose: 1 patch Omeprazole (Prilosec Cap*) 20 mg PO DAILY@0730 [facility] Last Admin: 06/20/18 09:51 Dose: 20 mg Potassium Chloride (Klor Con Er Tab*) 20 meq PO TID [facility] Last Admin: 06/20/18 09:51 Dose: 20 meq Vital Signs - 8 hr 06/20/18 06/20/18 08:00 09:52 Temperature 98.0 F Pulse Rate 85 Respiratory 18 18 Rate Blood Pressure 120/80 (mmHg) O2 Sat by Pulse 99 Oximetry Oxygen Devices in Use Now: None Appearance: dishelved 33 yo femal A+O x3 in NAD, Appropriate Eyes: No Scleral Icterus, PERRLA Ears/Nose/Mouth/Throat: NL Teeth, Lips, Gums, Mucous Membranes Moist Respiratory: Symmetrical Chest Expansion and Respiratory Effort, Clear to Auscultation Cardiovascular: NL Sounds; No Murmurs; No JVD, RRR, No Edema Abdominal: NL Sounds; No Tenderness; No Distention Extremities: No Edema, No Clubbing, Cyanosis, - - left foot in cast - toes pink warm appear to be well perfused. Neurological: Alert and Oriented x 3, NL Sensation, NL Muscle Strength and Tone Lines/Tubes/Other Access: Clean, Dry and Intact Peripheral IV Nutrition: Taking PO's Result Diagrams: 06/20/18 06:21 06/20/18 06:21 Microbiology and Other Data: Microbiology 06/14/18 13:00 Aerobic Blood Culture - Preliminary Blood Venous No Growth Day 4 Anaerobic Blood Culture - Preliminary No Growth Day 4 06/14/18 11:32 Anaerobic Culture - Final Wound - Left Skin and Soft Tissue MRSA/MSSA (PCR - Final Mrsa Negative S.aureus Negative Gram Stain - Final Wound Culture - Final Strep Pyogenes (Grp A) 06/14/18 14:53 Blood Culture - Preliminary Blood Venous No Growth Day 3 06/13/18 19:49 Urine Culture - Final Urine Strep Group B Normal [place] 06/14/18 03:00 Nasal Screen MRSA (PCR) - Final Nasal Mrsa Detected Assess/Plan/Problems-Billing Assessment: 33 yo female with hx of IVDU, bipolar, agoraphobia, anxiety who presented on 06/13 with c/o left ankle pain and redness found to have have sepsis secondary to cellulitis and abscess now s/p I+D - Patient Problems (1) Abscess of left foot Comment: S/P I&D. Dressing changed by Jeremy Burton 06/18. Continue pip/adeola a few more days, consider oral antibiotic soon. (2) Cellulitis of right abdominal wall Comment: Phlegmon clinically. Antibiotics as above. (3) IV drug abuse Comment: Pt had another somnolent spell AM 06/19, lying on floor of shower with water running. Dr. Barrett pain consult 06/19 and started methadone - not be given PRN. (4) Severe sepsis Comment: resolved (5) Tobacco abuse Comment: Pt advised to quit smoking and avoid second hand smoke. NRT ordered. Status and Disposition: inpatient.
[2018-06-20] MEDS: diPHENhydraMINE PO* 25 MG PO PRN (21:19)
[2018-06-21] MEDS: Piperacillin/Tazobac ADVAN(*) 3.375 GM in NS 0.9% 100 ML* 100 ML IVPB SCH ×3 (02:01→18:40)
[2018-06-21] MEDS: Heparin VIAL(*) 5000 UNITS/ML VIAL (FIVE THOUSAND) SUBCUT SCH ×3 (06:34→23:49)
[2018-06-21] MEDS: diPHENhydraMINE PO* 25 MG PO PRN ×2 (08:55→21:09)
[2018-06-21] MEDS: Methadone TAB* 5 MG PO SCH ×3 (08:56→21:08)
[2018-06-21] MEDS: Omeprazole CAP* 20 MG PO SCH (08:56)
[2018-06-21] MEDS: Potassium Chlor TAB* 10 MEQ TAB.ER PO SCH ×3 (08:56→21:08)
[2018-06-21] MEDS: Nicotine PATCH 7 MG/24 HR* PATCH TRANSDERM SCH (08:56)
--- NOTE | 2018-06-21 10:10 | PN ---
Progress Note - Progress Note Date of Service: 06/21/18 SOAP: Subjective: POD #7 Left foot I&D. C/o splint causing pressure to lateral foot, otherwise pain controlled. Denies f/c, CP/SOB or calf pain Objective: Vitals: Temp Pulse Resp BP Pulse Ox 98.2 F 91 16 120/72 98 06/21/18 04:00 06/21/18 01:45 06/21/18 08:56 06/21/18 01:45 06/21/18 01:45 Gen: A&O x3, NAD at rest LLE: Splint C/D/I, +f/e at MTPs, N/V intact Assessment: POD #7 Left foot I&D Plan: Splint opened slightly, abd pad added to provide less pressure to lateral foot, johanna loosened Cont IV abx Dressing change tomorrow
--- NOTE | 2018-06-21 12:35 | PN ---
Subjective Date of Service: 06/21/18 Interval History: Pt reports she is "bored' otherwise has no complaints. Denies fever or chills. reports pain is controlled better at this point. Denies diarrhea. Good appetite Objective Active Medications: Acetaminophen (Tylenol Tab*) 650 mg PO Q4H PRN PRN Reason: FEVER/PAIN Last Admin: 06/18/18 13:08 Dose: 650 mg Device (Nicotine Mouth Piece*) 1 each INH .USE WITH NICOTROL PRN PRN Reason: CRAVING Diphenhydramine HCl (Benadryl Po*) 25 mg PO Q4H PRN PRN Reason: ITCHING Last Admin: 06/21/18 08:55 Dose: 25 mg Heparin Sodium (Porcine) (Heparin Vial(*)) 5,000 units SUBCUT Q8HR [facility] Last Admin: 06/21/18 06:34 Dose: 5,000 units Piperacillin Sod/Tazobactam (Sod 3.375 gm/ Sodium Chloride) 100 mls @ 25 mls/ hr IVPB Q8H [facility] Last Admin: 06/21/18 09:10 Dose: 25 mls/hr Methadone HCl (Dolophine Tab*) 5 mg PO TID [facility] Last Admin: 06/21/18 08:56 Dose: 5 mg Nicotine (Nicotine Inhaler*) 10 mg INH Q2H PRN PRN Reason: CRAVING Last Admin: 06/21/18 08:55 Dose: 10 mg Nicotine (Nicotine Patch 7 Mg/24 Hr*) 1 patch TRANSDERM DAILY [facility] Last Admin: 06/21/18 08:56 Dose: 1 patch Omeprazole (Prilosec Cap*) 20 mg PO DAILY@0730 [facility] Last Admin: 06/21/18 08:56 Dose: 20 mg Potassium Chloride (Klor Con Er Tab*) 20 meq PO TID [facility] Last Admin: 06/21/18 08:56 Dose: 20 meq Vital Signs - 8 hr 06/21/18 06/21/18 06/21/18 07:55 08:00 08:55 Temperature 97.3 F Pulse Rate 84 Respiratory 16 14 16 Rate Blood Pressure 114/70 (mmHg) O2 Sat by Pulse 98 98 Oximetry 06/21/18 06/21/18 06/21/18 08:56 10:55 10:56 Temperature Pulse Rate Respiratory 16 14 14 Rate Blood Pressure (mmHg) O2 Sat by Pulse Oximetry 06/21/18 11:13 Temperature 98.0 F Pulse Rate 86 Respiratory 16 Rate Blood Pressure 108/69 (mmHg) O2 Sat by Pulse 98 Oximetry Oxygen Devices in Use Now: None Appearance: 33 yo female laying in bed watching TV in NAD - A+O x3 Eyes: No Scleral Icterus, PERRLA Ears/Nose/Mouth/Throat: NL Teeth, Lips, Gums, Mucous Membranes Moist Neck: NL Appearance and Movements; NL JVP Respiratory: Symmetrical Chest Expansion and Respiratory Effort, Clear to Percussion Cardiovascular: NL Sounds; No Murmurs; No JVD, RRR, No Edema Abdominal: NL Sounds; No Tenderness; No Distention Extremities: No Edema, No Clubbing, Cyanosis, - - LLE in cast - toes pink, warm Skin: No Rash or Ulcers, No Nodules or Sclerosis Neurological: Alert and Oriented x 3, NL Sensation, NL Muscle Strength and Tone Lines/Tubes/Other Access: Clean, Dry and Intact Peripheral IV Nutrition: Taking PO's Result Diagrams: 06/20/18 06:21 06/20/18 06:21 Microbiology and Other Data: Microbiology 06/14/18 13:00 Aerobic Blood Culture - Preliminary Blood Venous No Growth Day 4 Anaerobic Blood Culture - Preliminary No Growth Day 4 06/14/18 11:32 Anaerobic Culture - Final Wound - Left Skin and Soft Tissue MRSA/MSSA (PCR - Final Mrsa Negative S.aureus Negative Gram Stain - Final Wound Culture - Final Strep Pyogenes (Grp A) 06/14/18 14:53 Blood Culture - Preliminary Blood Venous No Growth Day 3 06/13/18 19:49 Urine Culture - Final Urine Strep Group B Normal [place] 06/14/18 03:00 Nasal Screen MRSA (PCR) - Final Nasal Mrsa Detected Assess/Plan/Problems-Billing Assessment: 33 yo female with hx of IVDU, bipolar, agoraphobia, anxiety who presented on 06/13 with c/o left ankle pain and redness found to have have sepsis secondary to cellulitis and abscess now s/p I+D - Patient Problems (1) Abscess of left foot Comment: S/P I&D. Dressing changed by Jeremy Burton 06/18, ortho plans to change dressing tomorrow. Will discuss with Ortho possible discharge tomorrow or Saturday ? PT will continue to follow and work on crutches/rolling walker - pt is NWB status Continue pip/adeola, consider oral antibiotic soon. methadone for pain management - appreciate Dr. Rodriguez consult - on dc she can be given a short prescription for pain only (15 pills max) (2) Cellulitis of right abdominal wall Comment: Phlegmon clinically. Antibiotics as above. (3) IV drug abuse Comment: Pt had another somnolent spell AM 06/19, lying on floor of shower with water running. Dr. Barrett pain consult 06/19 and started methadone for pain - not be given PRN. Appreciate psych consult - does not recommend inpatient psych and recommends drug rehabilitation (4) Severe sepsis Comment: resolved (5) Tobacco abuse Comment: Pt advised to quit smoking and avoid second hand smoke. NRT ordered. Status and Disposition: inpatient. pt is interested in outpt rehab but would like to go home first. She states she has supportive parents.
[2018-06-22] MEDS: Piperacillin/Tazobac ADVAN(*) 3.375 GM in NS 0.9% 100 ML* 100 ML IVPB SCH ×2 (01:17→10:41)
[2018-06-22] MEDS: Heparin VIAL(*) 5000 UNITS/ML VIAL (FIVE THOUSAND) SUBCUT SCH (06:22)
--- NOTE | 2018-06-22 08:58 | PN ---
Progress Note - Progress Note Date of Service: 06/22/18 SOAP: Subjective: POD #8 Right foot I&D, doing well. Pain improving. Denies f/c, CP/SOB Objective: Vitals: Temp Pulse Resp BP Pulse Ox 97.3 F 92 17 101/60 100 06/22/18 04:04 06/22/18 04:04 06/22/18 04:04 06/22/18 04:04 06/22/18 04:04 Gen: A&Ox3, NAD at rest sitting in bed RLE: Incision C/D/I around area of abscess. Skin over abscess area with serous weeping, mild maceration. No purulent d/c, erythema improving. +f/e at ankle and MTPs. Assessment: POD #8 Right foot I&D Plan: Betadine wet-to-dry dressing applied over abscess, dry soft dressing to remainder of foot. To be changed daily. Needs post op shoe, cont minimal WB RLE Abx per medicine F/u with Dr. Wolff or Dr. Guerra this week.
[2018-06-22 10:09] LABS: ABS Basophils 0.1 10^3/ul (0-0.2); ABS Eosinophils 0.6 10^3/ul (0-0.6); ABS Lymphocytes 3.7 10^3/ul (1.0-4.8); ABS Monocytes 0.5 10^3/ul (0-0.8); ABS Neutrophils 1.7 10^3/ul (1.5-7.7); ABS Nucleated RBC 0 10^3/ul; Eosinophil % 9.8 % (0-6); Hematocrit 42 % (35-47); Lymphocyte % 56.1 % (25-47); Mean Corpuscular HGB Conc 33 g/dl (31-36); Mean Corpuscular Hemoglobin 29 pg (27-31); Mean Corpuscular Volume 87 fL (80-97); Mean Platelet Volume 9.2 um3 (7.4-10.4); Nucleated Red Blood Cells % 0.1; Platelet Count 399 10^3/ul (150-450); Red Blood Count 4.84 10^6/ul (4.00-5.40); Red Cell Distribution Width 15 % (10.5-15); White Blood Count 6.6 10^3/ul (3.5-10.8)
[2018-06-22 10:26] LABS: EGFR Non-African American 101.4 (>60)
[2018-06-22] MEDS: Potassium Chlor TAB* 10 MEQ TAB.ER PO SCH (10:39)
[2018-06-22] MEDS: Acetaminophen TAB* 325 MG PO PRN (10:39)
[2018-06-22] MEDS: Methadone TAB* 5 MG PO SCH (10:40)
[2018-06-22] MEDS: Nicotine PATCH 7 MG/24 HR* PATCH TRANSDERM SCH (10:41)
[2018-06-22] MEDS: Omeprazole CAP* 20 MG PO SCH (10:41)
--- NOTE | 2018-06-22 11:45 | PN ---
Subjective Date of Service: 06/22/18 Interval History: patient reports she feels good and wants to go home stating she is going to leave AMA if she is not discharged. Discussed with Ortho this am and ok to DC home from Ortho standpoint and f/u on sat in [place] - per patient this will be closer for her. 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 She reports she has support from both of her parents and spoke to her mother when i was in the room to determine best pharmacy. She is not interested in smoking cessation at this time. She reports she is interested in "staying clean" and is considering [facility]. Her boyfriend in the room states "I am also going to rehab". Pt reports he pain is completely controlled on the Methadone. She states her primary is a [facility] and she hasnt been in a while but thinks she can be seen - we have discussed she has been [facility] up [facility] her seeing her PCP or obtaining a new one. Pt denies any complaints. no fever or chills. Good pain control. Objective Active Medications: Acetaminophen (Tylenol Tab*) 650 mg PO Q4H PRN PRN Reason: FEVER/PAIN Last Admin: 06/22/18 10:39 Dose: 650 mg Device (Nicotine Mouth Piece*) 1 each INH .USE WITH NICOTROL PRN PRN Reason: CRAVING Diphenhydramine HCl (Benadryl Po*) 25 mg PO Q4H PRN PRN Reason: ITCHING Last Admin: 06/21/18 21:09 Dose: 25 mg Heparin Sodium (Porcine) (Heparin Vial(*)) 5,000 units SUBCUT Q8HR [facility] Last Admin: 06/22/18 06:22 Dose: Not Given Piperacillin Sod/Tazobactam (Sod 3.375 gm/ Sodium Chloride) 100 mls @ 25 mls/ hr IVPB Q8H [facility] Last Admin: 06/22/18 10:41 Dose: 25 mls/hr Methadone HCl (Dolophine Tab*) 5 mg PO TID [facility] Last Admin: 06/22/18 10:40 Dose: 5 mg Nicotine (Nicotine Inhaler*) 10 mg INH Q2H PRN PRN Reason: CRAVING Last Admin: 06/21/18 08:55 Dose: 10 mg Nicotine (Nicotine Patch 7 Mg/24 Hr*) 1 patch TRANSDERM DAILY [facility] Last Admin: 06/22/18 10:41 Dose: Not Given Omeprazole (Prilosec Cap*) 20 mg PO DAILY@0730 [facility] Last Admin: 06/22/18 10:41 Dose: Not Given Potassium Chloride (Klor Con Er Tab*) 20 meq PO TID [facility] Last Admin: 06/22/18 10:39 Dose: 20 meq Vital Signs - 8 hr 06/22/18 06/22/18 04:04 10:40 Temperature 97.3 F Pulse Rate 92 Respiratory 17 20 Rate Blood Pressure 101/60 (mmHg) O2 Sat by Pulse 100 Oximetry Oxygen Devices in Use Now: None Appearance: 33 yo unkempt female sitting up in bed in NAD. A+Ox3 Eyes: No Scleral Icterus, PERRLA Respiratory: Symmetrical Chest Expansion and Respiratory Effort, Clear to Auscultation Cardiovascular: NL Sounds; No Murmurs; No JVD, RRR, No Edema Abdominal: NL Sounds; No Tenderness; No Distention Extremities: - - left foot in CD+I dressing with johanna wrap - toes pink warm Skin: No Rash or Ulcers, No Nodules or Sclerosis Neurological: Alert and Oriented x 3, NL Sensation, NL Muscle Strength and Tone Lines/Tubes/Other Access: Clean, Dry and Intact Peripheral IV Nutrition: Taking PO's Result Diagrams: 06/22/18 07:59 06/22/18 07:59 Microbiology and Other Data: Microbiology 06/14/18 13:00 Aerobic Blood Culture - Preliminary Blood Venous No Growth Day 4 Anaerobic Blood Culture - Preliminary No Growth Day 4 06/14/18 11:32 Anaerobic Culture - Final Wound - Left Skin and Soft Tissue MRSA/MSSA (PCR - Final Mrsa Negative S.aureus Negative Gram Stain - Final Wound Culture - Final Strep Pyogenes (Grp A) 06/14/18 14:53 Blood Culture - Preliminary Blood Venous No Growth Day 3 06/13/18 19:49 Urine Culture - Final Urine Strep Group B Normal [place] 06/14/18 03:00 Nasal Screen MRSA (PCR) - Final Nasal Mrsa Detected Assess/Plan/Problems-Billing Assessment: 33 yo female with hx of IVDU, bipolar, agoraphobia, anxiety who presented on 06/13 with c/o left ankle pain and redness found to have have sepsis secondary to cellulitis and abscess now s/p I+D - Patient Problems (1) Abscess of left foot Comment: S/P I&D #8 Ortho changed dressing/removed soft cast - recommends daily betadine wet/dry dressings with post op boot. to remain NWB. F/u with either Dr. Wolff or Dr. Guerra this week - Dr. Guerra is in [facility] on sat if that would be closer for patient to traveling auditor will continue to follow and work on crutches/rolling walker - pt is NWB status start clindamycin x 5 days on discharge methadone for pain management - appreciate Dr. Rodriguez consult - on dc she can be given a short prescription for pain only (15 pills max) (2) Cellulitis of right abdominal wall Comment: resolved (3) IV drug abuse Comment: Pt had another somnolent spell AM 06/19, lying on floor of shower with water running. Dr. Barrett pain consult 06/19 and started methadone for pain - not be given PRN. Appreciate psych consult - does not recommend inpatient psych and recommends drug rehabilitation - pt is considerng [facility] - SW following (4) Severe sepsis Comment: resolved (5) Tobacco abuse Comment: Pt advised to quit smoking and avoid second hand smoke. NRT ordered. Status and Disposition: inpatient. DC to home today
[2018-06-22] MEDS: diPHENhydraMINE PO* 25 MG PO PRN (12:17)
[2018-06-22 13:18] VITALS: BP 98/76
--- NOTE | 2018-06-23 02:06 | DS ---
DISCHARGE SUMMARY: DATE OF ADMISSION: 06/14/18 DATE OF DISCHARGE: 06/22/18 PROVIDER: Rebeca Yadav NP ATTENDING PHYSICIAN: Dr. Yao * (report dictated by Rebeca Yadav NP). ORTHOPEDIC SURGEONS: Dr. Guerra and Dr. Wolff. PRIMARY CARE PROVIDER: No PCP. Has been referred to [facility]. DISCHARGE DIAGNOSES: 1. Severe sepsis secondary to left foot Streptococcus pyogenes abscess/ cellulitis, status post incision and drainage. 2. Right hand and right lower abdominal cellulitis. 3. Metabolic toxic encephalopathy. 4. Acute respiratory failure requiring intubation. 5. Intravenous drug user, currently admits to using IV MDMA 3 to 7 days a week. 6. Bipolar. 7. Depression. 8. Anxiety. 9. Agoraphobia. DISCHARGE MEDICATIONS: 1. Clindamycin 300 mg p.o. q.6 hours x5 days. 2. Methadone 5 mg p.o. t.i.d. x3 days for pain control only. HISTORY OF PRESENT ILLNESS AND HOSPITAL COURSE: Please see history and physical by Fady Bacon NP, for full admission details, but in summary, this is a 33-year- old female with a past medical history of IV drug use, who presented to the emergency department with complaint of left ankle swelling, found to meet sepsis criteria on admission with a left foot cellulitis, left ankle abscess, and on admission now, the patient had reported that she was shooting up in her left ankle and developed redness over the previous 4 to 5 days and progressively gotten worse. The patient reports she does have agoraphobia and she is fearful to come to the ER, but the pain was too extreme. She also reported she developed what appeared to look like another abscess to her right abdominal wall, but this was just noted to be a cellulitis with no noted abscess. The patient did undergo a soft tissue ultrasound, which did show a 3.2 x 1.5 x 3.8 cm loculated complex fluid collection most consistent with early abscess with soft tissue swelling throughout the visualized foot with accompanied cellulitis. She was started on vancomycin and cefepime. In the emergency department, the patient was unable to obtain stable vascular access after 7 hours. Initially, a small peripheral IV was obtained in the hand , but this failed. Other peripheral accesses were unobtainable, most likely secondary to chronic IV drug abuse. It is noted by the miter cutter's notes there was no qualified IV nurse in house. ER physician, Dr. Lopez, made an effort to obtain central access via IJ; however, despite sedating the patient to the point where she was asleep, it was ineffective, and due to the presence of severe sepsis with limb-threatening infection and no good prospect for obtaining adequate access, it was decided to intubate the patient to obtain and maintain adequate access, provide safe care to the patient. The patient was intubated at that time with appropriate sedation. The patient did have a successful IJ placed and broad- spectrum antibiotics were initiated. She was sedated on propofol and fentanyl. Blood cultures were sent, which did result with no growth. Orthopedic surgeon, Dr. Guerra, was consulted on 06/14/18, and recommended irrigation, debridement of the left foot, and the patient was taken to the OR on 06/14/[address] Wolff and Dr. Guerra, who performed an incision and drainage of the left foot. A Hayden drain was placed in the wounds. The patient was transferred back to the intensive care unit. Per the surgeon's report, there were no complications. The patient was switched from fentanyl and propofol and started on Precedex. She was extubated successfully on 06/17/18. The patient was transferred to the medical floor and was followed by the hospitalist team as well as orthopedic team. Orthopedic team placed the patient in the left lower extremity splint, which was monitored closely by Ortho with possible dressing changes. Today, the splint was removed and a Betadine wet-to-dry dressing was applied with an David bandage and per Ortho, should be nonweightbearing. The patient has been working with physical therapy with crutches and doing well. 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 She is refusing visiting nurse service. She is to follow up with orthopedic team, Dr. Guerra, in [place] on 06/25/18. In regards to the patient's pain management, she was initially taking opiates; however, due to her history Dr. Barrett from Pain Management was asked to consult on the patient. He recommended methadone 5 mg p.o. t.i.d. and her opiates were discontinued and the patient has done well on this regimen. Per Dr. Barrett, it is okay to send the patient home with 15 tablets of methadone for pain only. In regards to the patient's IV drug use, she has been followed by Social Work and Case Management. The patient has showed interest in going to [facility]; however, she is refusing to go from hospital to [facility] and wants to go home first stating that she is still interested in inpatient rehab and reports that she wants to stop using drugs. Her boyfriend at the bedside today reports that he has plan to go a rehab as well too. We discussed the risks of overdose as well as the importance of her wound care and risk of losing her foot with amputation completely if she does not care for the wound correctly and have appropriate followup period. Again, at this time, she refuses VNS services. The patient's mother and father are supportive and will help the patient get to her appointments. The patient has received broad-spectrum antibiotics since admission switching over to Zosyn for the last 7 days. Currently, she will be sent home on clindamycin for another 5 days. DISCHARGE PLAN: 1. Nonweightbearing status with use of crutches. The patient has successfully showed she can do this. The plan is to follow up with orthopedic surgeon, Dr. Guerra, on 06/25/18. The patient was instructed she needs to call the office tomorrow morning on Saturday to obtain an appointment. 2. The patient has been set up with [facility] this week for a followup appointment. She does not have a primary care provider. Our team is currently helping the patient set up with a PCP. Per the patient, she has with [facility] and hopes to return there. 3. Social Work and Case Management have sent the patient's referral to [facility], who should be contacting the patient about rehab services. 4. Dressing changes daily with Betadine wet-to-dry dressing per ortho team. 5. Smoking cessation. 6. The patient was instructed to return to the emergency department with any concerning or worsening symptoms. TIME SPENT: Approximately 75 minutes was spent on this discharge summary. REBECA YADAV, PLANNING FEEDER [id number]/[facility] #: [id number] [id number]
== END 2018-06-22 13:30 | disposition home or self-care (01) | DRG 710 ==
LOC: ED 16:46 → ICU 06-14 00:54 → MED 06-18 00:06
PROVIDERS: ADMIT Hospitalist; ATTEND Internal Medicine
PROC: 5A1945Z Respiratory Ventilation, 24-96 Consecutive Hours (ICD-10-PCS; 2018-06-14)
PROC: 0BH17EZ Insertion of Endotracheal Airway into Trachea, Via Natural or Artificial Opening (ICD-10-PCS; 2018-06-14)
PROC: 02HV33Z Insertion of Infusion Device into Superior Vena Cava, Percutaneous Approach (ICD-10-PCS; 2018-06-14)
PROC: 0LBW0ZZ Excision of Left Foot Tendon, Open Approach (ICD-10-PCS; principal; 2018-06-14 11:00)
DX: A41.9 Sepsis, unspecified organism (principal); R65.21 Severe sepsis with septic shock; G92 Toxic encephalopathy; J96.00 Acute respiratory failure, unspecified whether with hypoxia or hypercapnia; L03.116 Cellulitis of left lower limb; L03.113 Cellulitis of right upper limb; J45.909 Unspecified asthma, uncomplicated; F41.9 Anxiety disorder, unspecified; F17.210 Nicotine dependence, cigarettes, uncomplicated; F43.10 Post-traumatic stress disorder, unspecified; E83.51 Hypocalcemia; D64.9 Anemia, unspecified; B95.4 Other streptococcus as the cause of diseases classified elsewhere; F19.10 Other psychoactive substance abuse, uncomplicated; F40.01 Agoraphobia with panic disorder; F31.9 Bipolar disorder, unspecified; E87.6 Hypokalemia; Z89.442 Acquired absence of left ankle; Z91.14 Patient's other noncompliance with medication regimen; Z82.49 Family history of ischemic heart disease and other diseases of the circulatory system; Z78.1 Physical restraint status; Z83.49 Family history of other endocrine, nutritional and metabolic diseases
CPT/HCPCS: 36415; 71045; 80048; 80053; 80076; 80202; 81003; 81015; 82803; 83605; 83735; 84484; 84702; 85025; 85027; 85610; 85730; 86140; 87040; 87070; 87073; 87077; 87086; 87186; 87205; 87640; 87641; 93306; 94003; 99285; 99406; A9270-GY; G8978-GP-CK; G8979-GP-CI; J0330; J0692; J1170; J1200; J1630; J1644; J2060; J2250; J2405; J2543; J2704; J3010; J3370; J3480

== ENCOUNTER 2018-06-28 13:12 | Inpatient (IN) | payer MEDICAID ==
[2018-06-28] MEDS ORDERED: NS 0.9% 1000 ML* 1,000 ML IV ONE (13:59)
--- NOTE | 2018-06-28 14:13 | ED ---
Lower Extremity - HPI Summary HPI Summary: Patient is a 33-year-old female who presents emergency department for worsening infection to her left foot. Patient has a history of to IVDU and was admitted to [facility] 06/14/18 after she developed an abscess to her left foot after she injecting. Abscess was drained in OR. Pt. signed out AMA 06/22. Pt. states she is currently taking keflex at home all though she was sent home on clindamycin. Pt. denies fever, chills, N/V. Symptoms are moderate in severity. Touching foot makes symptoms worse. Elevation makes symptoms better. - History of Current Complaint Chief Complaint: EDExtremityLower Stated Complaint: LT FOOT INFECTION Time Seen by Provider: 06/28/18 13:50 Hx Obtained From: Patient Hx Last Menstrual Period: 4 days ago Pain Intensity: 0 - Allergies/Home Medications Allergies/Adverse Reactions: Allergies Allergy/AdvReac Type Severity Reaction Status Date / Time No Known Allergies Allergy Verified 06/28/18 13:59 PMH/Surg Hx/FS Hx/Imm Hx Previously Healthy: Yes Endocrine/Hematology History: Denies: Hx Anticoagulant Therapy, Hx Diabetes, Hx Thyroid Disease Cardiovascular History: Denies: Hx Congestive Heart Failure, Hx Deep Vein Thrombosis, Hx Hypertension , Hx Myocardial Infarction, Hx Pacemaker/ICD Respiratory History: Reports: Hx Asthma - As a child. Denies: Hx Chronic Obstructive Pulmonary Disease (COPD), Hx Lung Cancer, Hx Pneumonia, Hx Pulmonary Embolism GI History: Denies: Hx Gall Bladder Disease, Hx Gastrointestinal Bleed, Hx Ulcer, Hx Urosepsis History: Denies: Hx Kidney Stones, Hx Renal Disease Sensory History: Denies: Hx Contacts or Glasses, Hx Hearing Aid Opthamlomology History: Denies: Hx Contacts or Glasses Neurological History: Denies: Hx Dementia, Hx Migraine, Hx Seizures, Hx Transient Ischemic Attacks (TIA) Psychiatric History: Reports: Hx Anxiety, Hx Depression, Hx Bipolar Disorder, Hx Substance Abuse Denies: Hx Panic Disorder, Hx Schizophrenia - Surgical History Surgery Procedure, Year, and Place: urinary stents x 4, insertions and removal, Infectious Disease History: No Infectious Disease History: Denies: History Other Infectious Disease, Traveled Outside the [place] in Last 30 Days - Family History Known Family History: Positive: Other - NONCONTRIBUTORY Negative: Cardiac Disease, Hypertension, Diabetes - Social History Occupation: Unemployed Lives: With Family Alcohol Use: None Substance Use Type: Reports: Heroin, Marijuana Substance Use Comment - Amount & Last Used: states used 4 days ago Hx Tobacco Use: Yes Smoking Status (MU): Heavy Every Day Tobacco Smoker Type: Cigarettes Amount Used/How Often: 1/2 pack Review of Systems Constitutional: Negative Negative: Fever, Chills Gastrointestinal: Negative Positive: Other - Infection to left foot All Other Systems Reviewed And Are Negative: Yes Physical Exam Triage Information Reviewed: Yes Vital Signs On Initial Exam: Initial Vitals Temp Pulse Resp BP Pulse Ox 97.6 F 109 18 132/87 99 06/28/18 13:57 06/28/18 13:57 06/28/18 13:57 06/28/18 13:57 06/28/18 13:57 Vital Signs Reviewed: Yes Appearance: Positive: Thin - Pt. sitting up in bed holding left foot near her face. In NAD. Skin: Positive: Warm, Dry Head/Face: Positive: Normal Head/Face Inspection Eyes: Positive: Normal, EOMI Neck: Positive: Supple Respiratory/Lung Sounds: Positive: Clear to Auscultation, Breath Sounds Present Cardiovascular: Positive: Normal, RRR Musculoskeletal: Positive: Other - Sutures in place to dorsum of left foot with scabbing wound surrounding. Erythema and edema over dorsum of foot extending to ankle. No obvious abscess. Neurological: Positive: Normal, CN Intact II-III Psychiatric: Positive: Anxious Diagnostics - Vital Signs Vital Signs Temp Pulse Resp BP Pulse Ox 06/28/18 13:57 97.6 F 109 18 132/87 99 - Laboratory Result Diagrams: 06/28/18 15:57 06/28/18 15:57 Lab Statement: Any lab studies that have been ordered have been reviewed, and results considered in the medical decision making process. Lower Extremity Course/Dx - Course Course Of Treatment: Patient presenting with ongoing infection to the left foot. She is afebrile. Mildly tachycardic 109 bpm. Patient currently does not meet septic criteria. Blood work, x-ray antibiotics ordered. IV access had to be obtained under ultrasound and was delayed. Blood work is relatively unremarkable. Mild elevation in CRP. Given worsening cellulitis to left foot on oral antibiotics hospitalist was contacted for admission. I spoke with Dr. Dillon and pt. has been accepted to her service. - Diagnoses Differential Diagnosis/HQI/PQRI: Positive: Cellulitis, Infection, Osteomyelitis Provider Diagnoses: Cellulitis Discharge - Sign-Out/Discharge Documenting (check all that apply): Patient Departure - Discharge Plan Condition: Stable Disposition: ADMITTED TO [facility] - Billing Disposition and Condition Condition: STABLE Disposition: Admitted to [facility]
[2018-06-28] MEDS ORDERED: Clindamycin 600 MG IVPREMIX(* 600 MG/50 ML SDV IV ONE (14:37)
[2018-06-28 14:51] LABS: Urine Appearance Cloudy; Urine Blood 1+ (Negative); Urine Color Yellow; Urine Ketones Negative (Negative); Urine Protein 2+(100 mg/dL) (Negative); Urine Red Blood Cell 3+(>10/hpf) (Absent); Urine Specific Gravity 1.017 (1.010-1.030); Urine Urobilinogen Negative (Negative); Urine White Blood Cell 3+(>20/hpf) (Absent)
--- NOTE | 2018-06-28 14:53 | RAD ---
Indication: LEFT foot infection. Pain and redness. Surgery 3 weeks ago. Comparison: June 14, 2018 LEFT ankle MRI. Technique: AP, lateral, and oblique views LEFT foot. REPORT AND IMPRESSION: #. Irregular soft tissue contour over the dorsum of the foot at the level of the transverse tarsal and intertarsal joints corresponding with the location of the soft tissue abscess collection on the June 14, 2018 MRI. No conspicuous subcutaneous emphysema or foreign body evident. Correlate with clinical assessment. In addition there is generalized soft tissue edema. #. Negative for periosteal reaction, osteomyelitis, or osteosclerosis to indicate presence of osteomyelitis. #. Negative for fracture or malalignment. #. Mild osteoarthritis at the first metatarsal phalangeal joint.
[2018-06-28 16:13] LABS: ABS Basophils 0 10^3/ul (0-0.2); ABS Eosinophils 0.2 10^3/ul (0-0.6); ABS Lymphocytes 2.8 10^3/ul (1.0-4.8); ABS Monocytes 0.6 10^3/ul (0-0.8); ABS Neutrophils 3.6 10^3/ul (1.5-7.7); ABS Nucleated RBC 0 10^3/ul; Eosinophil % 2.4 % (0-6); Hematocrit 34 % (35-47); Hemoglobin 11.5 g/dl (12.0-16.0); Mean Corpuscular HGB Conc 34 g/dl (31-36); Mean Corpuscular Hemoglobin 29 pg (27-31); Mean Corpuscular Volume 85 fL (80-97); Nucleated Red Blood Cells % 0; Platelet Count 291 10^3/ul (150-450); Red Blood Count 3.95 10^6/ul (4.00-5.40); Red Cell Distribution Width 15 % (10.5-15); White Blood Count 7.3 10^3/ul (3.5-10.8)
[2018-06-28] MEDS ORDERED: Ketorolac INJ* 30 MG/ML 1 ML VIAL IV PUSH ONE (16:19)
[2018-06-28 16:24] LABS: EGFR Non-African American 127.3 (>60)
[2018-06-28] MEDS ORDERED: Ondansetron INJ* 2 MG/ML VIAL IV PRN (17:01)
[2018-06-28] MEDS ORDERED: Nicotine Inhaler* 10 MG AMP INH PRN (17:01)
[2018-06-28] MEDS ORDERED: Vancomycin(*) 1,000 MG in NS 0.9% 250 ML* 250 ML IVPB ONE (17:01)
[2018-06-28] MEDS ORDERED: oxyCODONE TAB* 5 MG TAB PO PRN (17:18)
[2018-06-28] MEDS ORDERED: Morphine INJ* 2 MG/ML 1 ML SYRINGE (TWO MG - NEW SYRINGE VERSION) IV ONE (17:18)
[2018-06-28] MEDS ORDERED: Morphine VIAL* 10 MG/ML 1 ML VIAL IV ONE (17:55)
[2018-06-28] MEDS ORDERED: Cefepime 1 GM in Dextrose(*) 1 GM/50 ML BAG IV SCH (18:00)
[2018-06-28] MEDS ORDERED: Vancomycin per Pharmacy* NOTE FOLLOW UP PRN (18:41)
--- NOTE | 2018-06-28 18:46 | RAD ---
EXAM: CT Left Lower Extremity Without Intravenous Contrast, Foot CLINICAL HISTORY: 33 years old, female; Pain; Foot; Left; Additional info: Left foot cellulitis, assess for abscess. Wound on top of pt's left foot TECHNIQUE: Axial computed tomography images of the left foot without intravenous contrast. All CT scans at this facility use at least one of these dose optimization techniques: automated exposure control; mA and/or kV adjustment per patient size (includes targeted exams where dose is matched to clinical indication); or iterative reconstruction. Coronal and sagittal reformatted images were created and reviewed. COMPARISON: SFTIS EXLT US SOFT TISSUE LIMITED EXT-LT 06/13/2018 6:51 PM FINDINGS: Bones/joints: No fracture or CT evidence for osteomyelitis. No dislocation. Soft tissues: Edematous changes in the subcutaneous tissues most pronounced dorsum of the foot and lateral aspect of the ankle with some irregularity of the overlying skin surface which may be ulceration or related to bandaging. The swelling may be related to cellulitis as well as some degree of passive edema. No well localized abscess is seen although the absence of contrast limits the evaluation. No radiopaque foreign body. IMPRESSION: 1. Edematous changes in the subcutaneous tissues most pronounced dorsum of the foot and lateral aspect of the ankle with some irregularity of the overlying skin surface which may be ulceration or related to bandaging. The swelling may be related to cellulitis as well as some degree of passive edema. No well localized abscess is seen although the absence of contrast limits the evaluation. 2. No fracture or CT evidence for osteomyelitis.
[2018-06-28] MEDS ORDERED: metroNIDAZOLE IV 500 MG/100ML* 500 MG/100 ML BAG IVPB SCH (20:00)
--- NOTE | 2018-06-28 20:38 | CONSULT ---
Consult Consult: CC: Left foot/ankle HPI: 33 yo female, h/o IVDA, was admitted 06/14 for foot abcess and had undergone an InD on 06/15 with my partners. By 06/22 had been doing better on antibiotics and methadone and she insisted on discharge. Presented this afternoon to the ED with a red, painful foot and significant pain. ED called me as I am covering for Dr. Guerra from 5 to 9, and I suggested an MRI, but was told she would not be able to hold still. Therefore a CT scan was obtained. Official report is no evidence abcess and I also do not see a fluid collection. She is now in her room and clearly doing better, as the nurse's notes from the ED state she will leave to find heroin because her pain is that significant. PE: General: Mature female, NAD, but with continuous writhing movements. Interactive and appropriate. Left foot: Dressing taken down and it can be seen she has an eschar over the incision site. Red for 4 to 5 cm all about the incision/eschar. Tolerates palpation and no floculant areas found. Does report more pain as I palpate higher, corresponding to the anterior ankle joint. Doesn't move the ankle much at all due to pain. Films: CT and X-rays are available for review. THere is some soft tissue swelling, but much less than the films earlier this month. No evidence abcess or fluid collection. A: Left foot infection P: Already has received IV abx, toradol and pain meds. If improves on abx, unlikely will need surgery. May try with an US to evaluate the ankle joint to see if there is a fluid collection and if so that may need to be washed out. Her CRP is 16.45 with a WBC count of 7.3, so I am not very suspicious of an ankle joint infection.
--- NOTE | 2018-06-28 21:26 | HP ---
CC: Dr. Juan Castellanos * ADMISSION HISTORY AND PHYSICAL: DATE OF ADMISSION: 06/28/18 PRIMARY CARE PHYSICIAN: None. MY ATTENDING WHILE IN THE HOSPITAL: Dr. Slime Navas.* (DICTATED BY ISAC CRUZ) CONSULTING ORTHOPEDIST: Dr. Juan Castellanos. CHIEF COMPLAINT: Redness, swelling, and severe pain of the left foot. HISTORY OF PRESENT ILLNESS: Ms. 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 The patient at that time was seen in consultation by Orthopedics, who did an incision and drainage of her left foot, which was uncomplicated. The patient had severe pain and was started on methadone, which was able to fully control her pain. The patient's wound at that time grew only strep pyogenes; however, the patient had MRSA detected in her nares. The patient also had a urine culture positive for strep group B. The patient has had a history of arm wound in 2016, which was positive for MRSA. The patient during her hospitalization was seen in consultation by Psychiatry due to threatening behavior to the staff as well as pain control consult by Dr. Bhargav Barrett, who switched the patient to methadone 5 mg p.o. t.i.d. The patient was continued on clindamycin as well as continued on Zosyn in the hospital and improved greatly. The patient at discharge was transitioned to clindamycin. The patient at that time had a wound care with Betadine covered by gauze and Kerlix and an David wrap and was discharged home on his regimen as well as methadone and 5 days of clindamycin with close followup with [facility] and the orthopedist outpatient. The patient claims that she was doing well initially after her discharge, was unable to get an appointment with the [facility] and did not follow up with the Orthopedics. Did her dressing changes every day, took her clindamycin; however , the pain and the redness in her foot kept on getting worse. The patient denied any recurrent drug use. The patient stated that she had subjective fever before coming into the hospital. That was what prompted her admission as well as uncontrolled pain. The patient states that she stopped taking her methadone several days before her admission due to it is no longer working for pain, saying "why would you get addicted on something if it is not even going to help you". The patient came to the emergency room, had no temperature, was slightly tachycardic, was saturating normally on oxygen and had normal blood pressure. The patient had severe uncontrolled pain and significant worsening of swelling in her foot. The patient was unable to sit still in the bed and was currently crying out for pain medications. Due to concern for worsening in the patient's left foot cellulitis and failure to outpatient treatment, we are asked to evaluate for admission. The patient stated to this author and primary nurse that if she did not receive IV pain medication, she would leave the hospital. PAST MEDICAL HISTORY: IV drug abuse, heroin and MDMA; bipolar disorder; depression; anxiety; and agoraphobia. PAST SURGICAL HISTORY: Left foot I and D. MEDICATIONS: Outpatient: The only medication that the patient was taking was clindamycin. ALLERGIES: No known drug allergies. FAMILY HISTORY: The patient's mother and father are alive and have no health complaints. The patient's paternal grandfather of an [place]. The patient maternal grandmother is alive, had breast cancer. The patient's paternal grandfather of sepsis. The patient's maternal grandmother is alive, but also had breast cancer. The patient has 2 siblings who are alive and well. SOCIAL HISTORY: The patient smoke half a pack of cigarettes a day. The patient denies alcohol abuse. The patient smokes daily marijuana. The patient does not work. The patient is not . The patient has 3 children, 1 of whom . REVIEW OF SYSTEMS: A 14-point review of systems was reviewed and is negative, except as above in the HPI. PHYSICAL EXAMINATION GENERAL: The patient is a 33-year-old female who appears older than her stated age and sitting in the bed, any constant movement screaming out in pain. VITAL SIGNS: At the time of evaluation, temperature 97.6, pulse rate 109, respiratory rate 18, oxygen saturation 99% on room air, blood pressure 132/87. HEENT: Head: Normocephalic, atraumatic. Sclerae are anicteric. No conjunctival injection. Nasal mucosa moist. Oral mucosa moist. No pharyngeal erythema, discharge, or exudate. NECK: Supple, nontender with no lymphadenopathy. No carotid bruits auscultated. No JVD. RESPIRATORY: Clear to auscultation bilaterally. No wheezes, rales, rhonchi. Good air exchange bilaterally. CARDIAC: Tachycardic. No clicks, murmurs, gallops, or rubs. Pulses 2+ in the bilateral dorsalis pedis, posterior tibialis, and radial areas. No bilateral calf tenderness noted. ABDOMEN: Soft, nontender, nondistended. Bowel sounds present, normoactive in all 4 quadrants. No hepatosplenomegaly. No abdominal bruits auscultated. No hepatojugular reflux. GENITOURINARY: No suprapubic or CVA tenderness. NEUROLOGIC: Cranial nerves II through XII intact. No focal deficits. Alert and oriented x3. SKIN: Large open area with scabbing without drainage or fluctuance on the left foot with area of erythema comprising the entirety of the dorsum of the left foot. The patient has bruises across both of her arms, possibly representing IV drug use with no discrete crack torres. PSYCHIATRIC: The patient is very weepy, inconsolable, tangential, and occasionally confrontational when discussing her drug abuse. LABORATORY DATA: White blood cell count 7.3, hemoglobin 11.5, platelet count 291. Sodium 135, potassium 3.4, chloride 106, carbon dioxide 24, anion gap 5, BUN 7, creatinine 0.55, glucose 95, lactic acid 0.8, bilirubin 0.4, calcium 8.9 , AST 25, ALT 17, alkaline phosphatase 83, CRP 16.45, protein 7.4, albumin 3.7, globulin 3.7. Urine is yellow, cloudy, shows 2+ protein; 1+ blood, negative ketones and nitrites, urobilinogen, leukocyte esterase, 3+ white blood cell count, 3+ urine red blood cells, 3+ urine squamous epithelial cells present, hyaline cast present, yeast present, absent bacteria, and glucose. Studies: Foot x-ray read as regular soft tissue contour of the dorsum of the foot at the level of the transverse metatarsal and intratarsal joints corresponding to the location of soft tissue abscess collection. On 06/14/18, MRI, no conspicuous subcutaneous emphysema or foreign body evident correlated to clinical assessment. In addition, there is generalized soft tissue edema. Negative for periosteal reaction, osteomyelitis, or osteosclerosis to indicate presence of osteomyelitis. Negative for fracture or malalignment. Mild osteoarthritis in the first metatarsophalangeal joint. ASSESSMENT AND PLAN/IMPRESSION: Ms. Doyle is a 33-year-old female with past medical history significant for IV drug abuse, complicated by left foot abscess , status post incision and drainage and long course of IV antibiotics as well as chronic pain; bipolar disorder; and depression, who was discharged home on with clindamycin and pain controlled with methadone and has failed outpatient treatment with these medication and will be readmitted to the hospital for IV antibiotics, Orthopedics consultation, pain control, and repeat Pain Management consultation. 1. Left foot cellulitis. The patient has no obvious drainable abscess. This case was discussed with Dr. Juan Castellanos of Orthopedics, who states that MRI would be the ideal study, however given that the patient cannot sit still for more than several seconds, a CT would be the second best option as to assess for drainable abscess. The patient will have wound care as before and Wound Care consult will be obtained. The patient will be started on vancomycin, cefepime, and Flagyl due to the possibility of her those worsening being due to a new bacteria that was introduced due to poor wound care outpatient. The patient is tachycardic, likely from her emotional upset. The patient is normotensive, afebrile. The patient received 1 L of fluids while in the emergency department. The patient will be maintained on normal saline at 100 mL an hour; however, she does not meet sepsis criteria at this time. Wound culture will be obtained if possible during the Wound Care consultation. The patient has a known history of MRSA. The patient will be nonweightbearing on her left foot as previously instructed by Orthopedics. 2. Intractable pain. The patient will have pain control starting with IV morphine and oxycodone as well as Toradol and scheduled Tylenol. Another consultation has been requested for Dr. Bhargav Barrett. The goal will be to wean the patient's IV medication quickly as she previously had an adverse reaction and is addicted to heroin. The goal will be that as her pain in her subsides from treatment with IV antibiotics that she will be able to transition back to methadone, which was sufficient in treating her pain at her discharge. Escalation of the patient's opiate management should be avoided. 3. Bipolar disorder, depression, and anxiety. The patient will have lorazepam as needed for anxiety as she is inconsolable at this time. Long-term psychiatric care should be pursued for her as well as treatment for her substance abuse disorder. 4. Multiple substance abuse disorder. The patient denies any repeat substance abuse; however, the story is unlikely, we will obtain an urine drug screen. The patient admits to marijuana abuse. The patient also abused tobacco. The patient will be maintained on nicotine patch inhaler while in the hospital. 5. FEN. The patient will have fluids as above and be n.p.o. for possible incision and drainage until told this is not needed by Orthopedics. 6. DVT prophylaxis. The patient is moderate risk. The patient will have heparin subcu. 7. Code status: The patient would like to be a full code. The patient's surrogate decision maker will be her mother, Roya Alex. 8. Disposition: The patient is admitted inpatient. TIME SPENT: Approximately 90 minutes were spent on the admission of this patient, 45 of which was spent [id number] with the patient obtaining history and physical and discussing the treatment plan. This plan has been discussed with my attending, Dr. Slime Navas, and she is in agreement. ISAC CRUZ [id number]/[facility] #: [id number] MTDKelly
[2018-06-28] MEDS: Acetaminophen TAB* 325 MG PO SCH (22:41)
[2018-06-28] MEDS: LORazepam INJ* 2 MG/ML 1 ML VIAL IV PUSH PRN (22:43)
[2018-06-28] MEDS: Heparin VIAL(*) 5000 UNITS/ML VIAL (FIVE THOUSAND) SUBCUT SCH (23:10)
[2018-06-29] MEDS ORDERED: Vancomycin(*) 1,000 MG in NS 0.9% 250 ML* 250 ML IVPB SCH (02:00)
[2018-06-29] MEDS: Morphine VIAL* 4 MG/ML VIAL (1 ml vial) IV PRN ×3 (04:00→14:09)
[2018-06-29] MEDS: Acetaminophen TAB* 325 MG PO SCH ×3 (05:51→16:55)
[2018-06-29] MEDS: Heparin VIAL(*) 5000 UNITS/ML VIAL (FIVE THOUSAND) SUBCUT SCH ×3 (05:54→23:43)
[2018-06-29] MEDS: Vancomycin(*) 1,000 MG in NS 0.9% 250 ML* 250 ML IVPB SCH ×3 (06:40→20:19)
[2018-06-29] MEDS: LORazepam INJ* 2 MG/ML 1 ML VIAL IV PUSH PRN ×3 (06:53→19:11)
[2018-06-29] MEDS: Ketorolac INJ* 30 MG/ML 1 ML VIAL IV PUSH PRN ×2 (07:10→15:48)
--- NOTE | 2018-06-29 10:16 | RAD ---
INDICATION: Left lower extremity infection in an IV drug abuser COMPARISON: Similar ultrasound dated June 13, 2018 TECHNIQUE: Real time ultrasound images of the left ankle were acquired with ryan scale and Doppler color flow imaging. FINDINGS: There is heterogeneity and infiltration of the subcutaneous tissue overlying the left ankle. There is no drainable fluid collection. IMPRESSION: Sonographic findings indicate subcutaneous edema overlying the left ankle without definite focal drainable collection.
[2018-06-29] MEDS: Cefepime 1 GM in Dextrose(*) 1 GM/50 ML BAG IV SCH ×2 (10:18→23:02)
[2018-06-29] MEDS: metroNIDAZOLE IV 500 MG/100ML* 500 MG/100 ML BAG IVPB SCH (11:20)
--- NOTE | 2018-06-29 12:12 | PN ---
Subjective Date of Service: 06/29/18 Interval History: Pt seen and examined. Meds and labs reviewed. CC: N/A ROS: Denied SOUZA/dizziness, F/C, N/V, CP, SOB, increased cough, sputum production , abd pain, diarrhea, constipation, dysuria, myalgias, arthralgias, throat pain , and new skin lesions. The rest of the 14 point ROS are unremarkable. PHYSICAL EXAM: GEN APPEARANCE: Awake, not in acute distress HEENT: NC/AT, PERRLA, moist oral mucosa, (-) throat erythema NECK: Soft, supple, (-) cervical LAD, (-)JVD HEART: S1S2 WNL, RRR, No MRG CHEST: CTA, BL, GAE, No W/R/R ABD: Soft, ND/NT, NABS 4x Q EXT: No C/C/E SKIN: Warm to touch, eschar on incision site on Left foot dorsum PSYCH: No active psychosis, hallucinations, depression, SI/HI Objective Active Medications: Acetaminophen (Tylenol Tab*) 975 mg PO Q8H [facility] Last Admin: 06/29/18 10:02 Dose: 975 mg Heparin Sodium (Porcine) (Heparin Vial(*)) 5,000 units SUBCUT Q8HR [facility] Last Admin: 06/29/18 05:54 Dose: Not Given Sodium Chloride (Ns 0.9% 1000 Ml*) 1,000 mls @ 100 mls/hr IV PER RATE [facility] Cefepime HCl (Maxipime 1 Gm In Dextrose Duplex (*)) 1 gm in 50 mls @ 100 mls/ hr IV 1100,2300 [facility] Last Admin: 06/29/18 10:18 Dose: 100 mls/hr Metronidazole/Sodium Chloride (Flagyl 500 Mg Ivpb*) 500 mg in 100 mls @ 100 mls /hr IVPB 0000,1200 [facility] Last Admin: 06/29/18 11:20 Dose: 100 mls/hr Vancomycin HCl 1,000 mg/ (Sodium Chloride) 250 mls @ 166.667 mls/hr IVPB 0400, 1200,2000 [facility]; Protocol Last Admin: 06/29/18 06:40 Dose: 166.667 mls/hr Ketorolac Tromethamine (Toradol Inj*) 30 mg IV PUSH Q6H PRN PRN Reason: PAIN Last Admin: 06/29/18 07:10 Dose: 30 mg Lorazepam (Ativan Inj*) 0.5 mg IV PUSH Q4H PRN PRN Reason: ANXIETY Last Admin: 06/29/18 06:53 Dose: 0.5 mg Morphine Sulfate (Morphine Vial*) 4 mg IV Q4H PRN PRN Reason: PAIN Last Admin: 06/29/18 10:09 Dose: 4 mg Nicotine (Nicotine Inhaler*) 10 mg INH Q2H PRN PRN Reason: CRAVING Ondansetron HCl (Zofran Inj*) 4 mg IV Q6H PRN PRN Reason: NAUSEA Oxycodone HCl (Roxycodone Tab*) 5 mg PO Q6H PRN PRN Reason: PAIN Pharmacy Consult (Vancomycin Per Pharmacy*) 1 note FOLLOW UP . PRN PRN Reason: PER PROTOCOL Pharmacy Profile Note (Vancomycin Trough Check) 1 note FOLLOW UP 1130 ONE Stop: 06/30/18 11:31 Vital Signs - 8 hr 06/29/18 06/29/18 06/29/18 05:49 06:53 07:28 Temperature 98.2 F Pulse Rate 97 Respiratory 16 16 18 Rate Blood Pressure 103/84 (mmHg) O2 Sat by Pulse 99 Oximetry 06/29/18 06/29/18 06/29/18 08:00 08:53 10:09 Temperature Pulse Rate Respiratory 16 16 16 Rate Blood Pressure (mmHg) O2 Sat by Pulse Oximetry 06/29/18 06/29/18 11:24 11:41 Temperature 98.1 F Pulse Rate 85 Respiratory 18 16 Rate Blood Pressure 116/62 (mmHg) O2 Sat by Pulse 100 Oximetry Oxygen Devices in Use Now: None Result Diagrams: 06/28/18 15:57 06/28/18 15:57 Assess/Plan/Problems-Billing Assessment: - Patient Problems (1) Cellulitis of left foot Current Visit: Yes Status: Acute Code(s): L03.116 - CELLULITIS OF LEFT LOWER LIMB SNOMED Code(s): 472358866 Comment: -Continue Cefepime, Flagyl, and Vancomycin day #1 -LLE CT scan reveals above without any evidence of osteomyelitis; pt thought not to be able to be still long enough for MRI to be helpful -Will repeat CRP in AM -Was seen and evaluated by Dr. Rojas yesterday who suggested that U/S be done to evaluate ankle jointsoft tissue U/S this AM did not suggest any abscess or drainable collection on exam -Will await any further recommendations from ortho (Dr. Rojas) -Agree with wound care consult (2) Pain Current Visit: Yes Status: Acute Code(s): R52 - PAIN, UNSPECIFIED SNOMED Code(s): 84945007 Comment: -Well-controlled -Continue on Ketorolac, Morphine, Oxycodone, and Tylenol (3) Bipolar disorder Current Visit: Yes Status: Acute Comment: -Defer to pts PCP and/or psychiatrist as outpt -Pt is psychiatrically stable at this time (4) DVT prophylaxis Current Visit: Yes Status: Acute Code(s): HZA3567 - SNOMED Code(s): 676572764 Comment: -Continue Heparin SQ Status and Disposition: -As above
[2018-06-29] MEDS: NS 0.9% 1000 ML* 1,000 ML IV SCH (14:10)
[2018-06-29] MEDS ORDERED: Fluconazole 100 MG TAB* TAB PO STA (15:58)
[2018-06-29] MEDS ORDERED: Docusate CAP* 100 MG PO SCH (16:00)
[2018-06-29] MEDS ORDERED: Methadone TAB* 10 MG PO ONE (16:20)
[2018-06-29] MEDS ORDERED: Prochlorperazine TAB* 10 MG PO PRN (16:21)
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
[2018-06-29] MEDS: Nicotine PATCH 21 MG/24 HR* PATCH TRANSDERM SCH (16:53)
[2018-06-29] MEDS: Senna TAB PO SCH (16:54)
[2018-06-29] MEDS: Polyethylene Glycol 3350* 17 GM PACKET PO STA ×2 (16:56→17:04)
[2018-06-29] MEDS: Docusate CAP* 100 MG PO SCH (23:03)
[2018-06-29] MEDS: Methadone TAB* 10 MG PO SCH (23:03)
[2018-06-29] MEDS: Nicotine Patch Removal NOTE PATCH OFF SCH (23:11)
[2018-06-30] MEDS: metroNIDAZOLE IV 500 MG/100ML* 500 MG/100 ML BAG IVPB SCH ×3 (00:29→23:39)
[2018-06-30] MEDS: Ketorolac INJ* 30 MG/ML 1 ML VIAL IV PUSH PRN ×2 (00:30→11:51)
[2018-06-30] MEDS: LORazepam INJ* 2 MG/ML 1 ML VIAL IV PUSH PRN ×3 (00:37→16:10)
[2018-06-30] MEDS: Acetaminophen TAB* 325 MG PO SCH ×3 (03:41→18:17)
[2018-06-30] MEDS: Vancomycin(*) 1,000 MG in NS 0.9% 250 ML* 250 ML IVPB SCH (04:03)
[2018-06-30] MEDS: Heparin VIAL(*) 5000 UNITS/ML VIAL (FIVE THOUSAND) SUBCUT SCH ×3 (05:56→21:04)
[2018-06-30] MEDS: Senna TAB PO SCH (08:34)
[2018-06-30] MEDS: Methadone TAB* 10 MG PO SCH ×2 (08:34→21:08)
[2018-06-30] MEDS: Docusate CAP* 100 MG PO SCH ×2 (08:34→21:04)
[2018-06-30] MEDS: Nicotine PATCH 21 MG/24 HR* PATCH TRANSDERM SCH (08:35)
[2018-06-30] MEDS ORDERED: Vancomycin Trough Check NOTE FOLLOW UP ONE (11:30)
--- NOTE | 2018-06-30 16:07 | PN ---
Subjective Date of Service: 06/30/18 Interval History: Pt seen and examined. Meds and labs reviewed. CC: N/A ROS: Denied SOUZA/dizziness, F/C, N/V, CP, SOB, increased cough, sputum production , abd pain, diarrhea, constipation, dysuria, myalgias, arthralgias, throat pain , and new skin lesions. The rest of the 14 point ROS are unremarkable. PHYSICAL EXAM: GEN APPEARANCE: Awake, not in acute distress HEENT: NC/AT, PERRLA, moist oral mucosa, (-) throat erythema NECK: Soft, supple, (-) cervical LAD, (-)JVD HEART: S1S2 WNL, RRR, No MRG CHEST: CTA, BL, GAE, No W/R/R ABD: Soft, ND/NT, NABS 4x Q EXT: No C/C/E SKIN: Warm to touch PSYCH: No active psychosis, hallucinations, depression, SI/HI Objective Active Medications: Acetaminophen (Tylenol Tab*) 975 mg PO Q8H [facility] Last Admin: 06/30/18 11:38 Dose: Not Given Docusate Sodium (Colace Cap*) 100 mg PO BID [facility] Last Admin: 06/30/18 08:34 Dose: Not Given Heparin Sodium (Porcine) (Heparin Vial(*)) 5,000 units SUBCUT Q8HR [facility] Last Admin: 06/30/18 13:21 Dose: Not Given Sodium Chloride (Ns 0.9% 1000 Ml*) 1,000 mls @ 100 mls/hr IV PER RATE [facility] Last Admin: 06/29/18 14:10 Dose: 100 mls/hr Metronidazole/Sodium Chloride (Flagyl 500 Mg Ivpb*) 500 mg in 100 mls @ 100 mls /hr IVPB 0000,1200 [facility] Last Admin: 06/30/18 11:51 Dose: 100 mls/hr Ceftriaxone Sodium 1 gm/ (Sodium Chloride) 50 mls @ 200 mls/hr IVPB Q24H [facility] Ketorolac Tromethamine (Toradol Inj*) 30 mg IV PUSH Q6H PRN PRN Reason: PAIN Last Admin: 06/30/18 11:51 Dose: 30 mg Lorazepam (Ativan Inj*) 0.5 mg IV PUSH Q4H PRN PRN Reason: ANXIETY Last Admin: 06/30/18 08:35 Dose: 0.5 mg Methadone HCl (Dolophine Tab*) 10 mg PO Q12H [facility] Last Admin: 06/30/18 08:34 Dose: 10 mg Nicotine (Nicotine Inhaler*) 10 mg INH Q2H PRN PRN Reason: CRAVING Nicotine (Nicotine Patch 21 Mg/24 Hr*) 1 patch TRANSDERM DAILY [facility] Last Admin: 06/30/18 08:35 Dose: 1 patch Pharmacy Profile Note (Nicotine Patch Removal Note*) 1 note PATCH OFF 2100 [facility] Last Admin: 06/29/18 23:11 Dose: 1 note Prochlorperazine (Compazine Tab*) 10 mg PO Q8HR PRN PRN Reason: NAUSEA Senna (Senokot Tab*) 1 tab PO DAILY [facility] Last Admin: 06/30/18 08:34 Dose: Not Given Vital Signs - 8 hr 06/30/18 06/30/18 06/30/18 08:34 08:35 09:46 Temperature Pulse Rate Respiratory 16 16 14 Rate Blood Pressure (mmHg) O2 Sat by Pulse Oximetry 06/30/18 06/30/18 11:45 11:59 Temperature 97.7 F Pulse Rate 84 Respiratory 14 14 Rate Blood Pressure 116/75 (mmHg) O2 Sat by Pulse 100 Oximetry Oxygen Devices in Use Now: None Result Diagrams: 06/28/18 15:57 06/28/18 15:57 Microbiology and Other Data: Microbiology 06/28/18 15:57 Aerobic Blood Culture - Preliminary Blood Venous No Growth Day 2 Anaerobic Blood Culture - Preliminary No Growth Day 2 06/28/18 14:27 Urine Culture - Final Urine Escherichia Coli Normal [place] Assess/Plan/Problems-Billing Assessment: - Patient Problems (1) Cellulitis of left foot Current Visit: Yes Status: Acute Code(s): L03.116 - CELLULITIS OF LEFT LOWER LIMB SNOMED Code(s): 516489967 Comment: -Continue Flagyl; Cefepime and Vanco D/Cd and placed on Rocephin by Dr. Pyle, abx day #2 -Will await any further ID input -LLE CT scan reveals above without any evidence of osteomyelitis; pt thought not to be able to be still long enough for MRI to be helpful -Was seen and evaluated by Dr. Rojas yesterday who suggested that U/S be done to evaluate ankle jointsoft tissue U/S this did not suggest any abscess or drainable collection on exam -Will await any further recommendations from ortho (Dr. Rojas) -Appreciate wound consult---continue use of Xeroform (2) Pain Current Visit: Yes Status: Acute Code(s): R52 - PAIN, UNSPECIFIED SNOMED Code(s): 10833835 Comment: -Well-controlled -Continue on Ketorolac, Morphine, Oxycodone, and Tylenol (3) Bipolar disorder Current Visit: Yes Status: Acute Comment: -Defer to pts PCP and/or psychiatrist as outpt -Pt is psychiatrically stable at this time (4) DVT prophylaxis Current Visit: Yes Status: Acute Code(s): WBL9356 - SNOMED Code(s): 366819394 Comment: -Continue Heparin SQ Status and Disposition: -As above
[2018-06-30] MEDS: cefTRIAXone(*) 1 GM in NS 0.9% 50 ML* 50 ML IVPB SCH (16:11)
[2018-06-30] MEDS: NS 0.9% 1000 ML* 1,000 ML IV SCH (18:23)
--- NOTE | 2018-06-30 19:17 | CONS ---
CONSULTATION REPORT: DATE OF CONSULT: 06/30/18 REQUESTING PHYSICIAN: Dr. Quinones. CONSULTING SERVICE: Infectious Disease REASON FOR CONSULT: Foot infection. IMPRESSION: 1. Recent left foot abscess due to group A streptococcus, treated with incision and debridement, and oral clindamycin with worsening pain, swelling, redness and a CT shows no reaccumulation of abscess. There is still cellulitis and myositis. Could have been insufficient tissue levels of the oral antibiotic , but nothing to suggest a secondary infection. 2. 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 3. Bipolar disorder. PLAN/RECOMMENDATIONS: 1. Stop vancomycin, cefepime. We will start ceftriaxone 1 g a day and continue the Flagyl 500 mg every 12 hours. Follow for her foot exam here. She may need a longer course of IV before transition to oral treatment. 2. HIV and hepatitis C antibodies for which she gives verbal consent. HISTORY OF PRESENT ILLNESS: This is a 33-year-old woman with left foot infection. She was treated here with surgery and antibiotics after transferred 06/14/18. Cultures grew group A strep, pansensitive. She was discharged on clindamycin, apparently taking and tolerating it well, but then had worsening pain, swelling and redness in the foot. So she came back to the hospital. Her white blood cell count was 7. C-reactive protein was 16, which is about what it was when she left on 06/20/18. She has had no fevers here. She had a CT scan of the foot that showed soft tissue swelling and no abscess. She is on broad-spectrum antibiotics here and continues to have foot pain. She has had scheduled ketorolac as well as scheduled Tylenol and continued on methadone. FAMILY HISTORY: No recurrent infections. Her parents are both alive and healthy. SOCIAL HISTORY: She lives in [place] with her mother. She does inject heroin, MDMA. She is a nonsmoker. REVIEW OF SYSTEMS: All negative except as noted above to 14-point review of systems. PHYSICAL EXAM: Vital Signs: Temperature is 36.4, heart rate 70, respiratory rate 17, blood pressure 125/65, oxygen saturation 100% on room air. In general , she is awake and not in distress. Neurologic: She is oriented x3. Follows all commands. HEENT: There is no conjunctival hemorrhage. Oropharynx without lesions. Neck: Neck is supple without mass. Heart: Regular rate and rhythm without murmurs, rubs or gallops. Lungs: Clear to auscultation bilaterally. Abdomen: Soft, nontender, nondistended. There are bowel sounds present. Skin : There is no rash or splinter hemorrhage. Musculoskeletal: Left foot has diffuse edema. The dorsal incision is intact. There is slight rim of erythema. There is diffuse tenderness to palpation without crepitus or fluctuance. There is no tenderness to the ankle. DIAGNOSTIC STUDIES/LAB DATA: White blood cell count 7, hemoglobin 11.5, MCV 85 , platelets 291. Creatinine 0.5. Please see impression and recommendations outlined above, which I have discussed with Dr. Quinones. Thank you for asking me to see Ms. Doyle in consultation. [id number]/[facility] #: [id number] MTDKelly
[2018-06-30] MEDS: Nicotine Patch Removal NOTE PATCH OFF SCH (21:09)
--- NOTE | 2018-06-30 21:38 | CONS ---
CONSULTATION REPORT: DATE OF CONSULT: 06/30/18 HISTORY OF PRESENT ILLNESS: Mary was admitted 2 days ago with increasing pain and redness in the area of her left foot, dorsal and ankle area. She had been discharged a week previously on oral antibiotics, a Betadine dressing, and was told to follow up with Orthopedics and [facility] for her pain medications. She is a 33-year-old female, who initially was admitted for an abscess over the dorsum of her left foot due to injecting street drugs. During this last week, Mary did not go to her orthopedic appointment and evidently also did not go to the [facility]. So, in another words , she missed out on both of her postoperative appointments. At this point, she has been admitted for 48 hours to the hospital service again for some IV antibiotics, evaluation of the left foot with dressing changes, and addressing her pain medication. She is currently on methadone, ordered evidently t.i.d., but she has been getting it b.i.d. according to the patient. PHYSICAL EXAM: The left foot does not appear to be certainly any worse in terms of swelling or drainage. There are some partial sutures proximally and distally in the wound, which appeared to be well healed. The center portion of the wound though has basically sloughed skin; I would guess 3 x 4 cm ovoid defect. Again, wound itself is somewhat necrotic, but not foul smelling like it was previously when she had her drainage. DIAGNOSTIC STUDIES: She has a CT scan, which evidently does not show any evidence of a deep abscess. RECOMMENDATIONS: My recommendations would be continued antibiotic coverage and aggressive wet-to-dry treatments. It is possible she will need some debridement of the wound, but I would treat her again with a course of the antibiotics to try to get the cellulitis under control. Certainly, pain management is a significant issue with this patient. I think she is at high risk to go AMA. In my brief encounter with her for 15 minutes, she really pretty much only complained about pain management, feeling that she was not getting nearly enough pain medication and also basically, intermittently falling asleep during my examination. [id number]/[facility] #: [id number] AMIRA
[2018-07-01] MEDS: Acetaminophen TAB* 325 MG PO SCH ×3 (01:49→16:42)
[2018-07-01] MEDS: Heparin VIAL(*) 5000 UNITS/ML VIAL (FIVE THOUSAND) SUBCUT SCH ×3 (05:03→20:38)
[2018-07-01] MEDS: NS 0.9% 1000 ML* 1,000 ML IV SCH (05:25)
[2018-07-01] MEDS: Ketorolac INJ* 30 MG/ML 1 ML VIAL IV PUSH PRN (06:15)
[2018-07-01] MEDS: Senna TAB PO SCH (08:00)
[2018-07-01] MEDS: Docusate CAP* 100 MG PO SCH ×2 (08:01→20:38)
[2018-07-01] MEDS: Methadone TAB* 10 MG PO SCH ×3 (08:01→20:41)
[2018-07-01] MEDS: Nicotine PATCH 21 MG/24 HR* PATCH TRANSDERM SCH (08:01)
[2018-07-01 09:51] LABS: ABS Basophils 0 10^3/ul (0-0.2); ABS Eosinophils 0.4 10^3/ul (0-0.6); ABS Lymphocytes 2.3 10^3/ul (1.0-4.8); ABS Monocytes 0.3 10^3/ul (0-0.8); ABS Neutrophils 1.5 10^3/ul (1.5-7.7); ABS Nucleated RBC 0 10^3/ul; Eosinophil % 8.6 % (0-6); Hematocrit 32 % (35-47); Hemoglobin 10.9 g/dl (12.0-16.0); Lymphocyte % 51.8 % (25-47); Mean Corpuscular HGB Conc 34 g/dl (31-36); Mean Corpuscular Hemoglobin 29 pg (27-31); Mean Corpuscular Volume 87 fL (80-97); Mean Platelet Volume 8.7 um3 (7.4-10.4); Nucleated Red Blood Cells % 0; Platelet Count 239 10^3/ul (150-450); Red Blood Count 3.74 10^6/ul (4.00-5.40); Red Cell Distribution Width 15 % (10.5-15); White Blood Count 4.4 10^3/ul (3.5-10.8)
--- NOTE | 2018-07-01 10:20 | PN ---
Progress Note - Progress Note Date of Service: 07/01/18 SOAP: Subjective: [Pt seen today sitting up in bed. States that there is pain in the foot. Does not understand why she would put ice on the foot. Denies any chest pain, SOB, fever, chills, nausea or vomiting. ] Objective: [General: A&O x3. NAD MSK: Dressing is c/d/i. Able to wiggle toes. ] Vital Signs Temp 98.3 F 07/01/18 08:00 Pulse 85 07/01/18 08:00 Resp 16 07/01/18 08:01 BP 116/85 07/01/18 08:00 Pulse Ox 99 07/01/18 08:00 Intake & Output 06/30/18 07/01/18 07/01/18 18:59 06:59 18:59 Intake Total 2913 1335 315 Output Total 500 Balance 2913 835 315 Intake: IV Fluids 1945 990 315 NS (0.9%) 1945 990 315 IVPB 105 ABX - FLAGYL 105 Oral 968 240 Output: Urine 500 Other: Estimated Void Medium # Bowel Movements 1 Estimated Stool Amount Small # Voids 1 Assessment: [cellulitis of left foot] Plan: [Sutures are still in place, we will take the pt to the or for an I&D, vac placement and suture removal on Continue with current pain medication Continue with hospitalists treatment plan NPO after midnight tomorrow night]
[2018-07-01 10:21] LABS: EGFR Non-African American 148.9 (>60)
[2018-07-01] MEDS: metroNIDAZOLE IV 500 MG/100ML* 500 MG/100 ML BAG IVPB SCH ×2 (12:26→23:02)
--- NOTE | 2018-07-01 14:02 | PN ---
Progress Note - Progress Note Date of Service: 07/01/18 SOAP: Subjective: CC: foot infection HPI: 33 year old woman with left foot abscess s/p I&D returned with pain in foot , red around eschar in wound. Pain in foot, the same today. Objective: [] As Vital Signs Temp 36.8 C 07/01/18 08:00 Pulse 85 07/01/18 08:00 Resp 16 07/01/18 13:53 BP 116/85 07/01/18 08:00 Pulse Ox 99 07/01/18 08:00 Intake & Output 06/30/18 07/01/18 07/01/18 18:59 06:59 18:59 Intake Total 2913 1335 915 Output Total 500 Balance 2913 835 915 Intake: IV Fluids 1944 990 315 NS (0.9%) 1944 990 315 IVPB 105 ABX - FLAGYL 105 Oral 968 240 600 Output: Urine 500 Other: Estimated Void Medium Date of Last Bowel 07/01/18 Movement # Bowel Movements 1 1 Estimated Stool Amount Small # Voids 1 Gen:awake, no distress HEENT: no thrush Heart:RRR no murmur Lungs:CTA BL Abd:+BS NTND soft Skin: no rash MSK: no spine tenderness, left dorsal foot incision, mid eschar mild erythema, no ankle tenderness Laboratory Results - last 24 hr 07/01/18 07/01/18 07/01/18 09:40 09:40 09:40 WBC 4.4 RBC 3.74 L Hgb 10.9 L Hct 32 L MCV 87 MCH 29 MCHC 34 RDW 15 Plt Count 239 MPV 8.7 Neut % (Auto) 33.2 L Lymph % (Auto) 51.8 H Cassia % (Auto) 6.2 Eos % (Auto) 8.6 H Baso % (Auto) 0.2 Absolute Neuts (auto) 1.5 Absolute Lymphs (auto) 2.3 Absolute Monos (auto) 0.3 Absolute Eos (auto) 0.4 Absolute Basos (auto) 0 Absolute Nucleated RBC 0 Nucleated RBC % 0 ESR Sodium 141 Potassium 3.9 Chloride 111 Carbon Dioxide 25 Anion Gap 5 BUN 2 L Creatinine 0.48 L Est GFR ( Amer) 180.2 Est GFR (Non-Af Amer) 148.9 BUN/Creatinine Ratio 4.2 L Glucose 107 H Calcium 8.4 L Phosphorus 3.4 Magnesium 1.7 L Total Bilirubin 0.30 AST 30 ALT 23 Alkaline Phosphatase 105 H C-Reactive Protein 20.18 H Total Protein 5.9 L Albumin 2.9 L Globulin 3.0 Albumin/Globulin Ratio 1.0 Hepatitis C Antibody High reactive A 07/01/18 09:40 WBC RBC Hgb Hct MCV MCH MCHC RDW Plt Count MPV Neut % (Auto) Lymph % (Auto) Cassia % (Auto) Eos % (Auto) Baso % (Auto) Absolute Neuts (auto) Absolute Lymphs (auto) Absolute Monos (auto) Absolute Eos (auto) Absolute Basos (auto) Absolute Nucleated RBC Nucleated RBC % ESR 37 H Sodium Potassium Chloride Carbon Dioxide Anion Gap BUN Creatinine Est GFR ( Amer) Est GFR (Non-Af Amer) BUN/Creatinine Ratio Glucose Calcium Phosphorus Magnesium Total Bilirubin AST ALT Alkaline Phosphatase C-Reactive Protein Total Protein Albumin Globulin Albumin/Globulin Ratio Hepatitis C Antibody Asessment: 1. left foot cellulitis and wound infection, original infection Grp A Strep 2. IVDU in brief remission 3. HCV Ab +, outpatient workup Plan: 1. continue ceftriaxone and flagyl, I&D planned
[2018-07-01] MEDS: cefTRIAXone(*) 1 GM in NS 0.9% 50 ML* 50 ML IVPB SCH (15:51)
--- NOTE | 2018-07-01 16:38 | PN ---
Subjective Date of Service: 07/01/18 Interval History: Pt seen and examined. Meds and labs reviewed. Pt now complaining of anxiety when Lorazepam was D/Cd given her lethargy and recent increase in Methadone. 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 She was informed that BZDs will NOT be prescribed, however, an alternative will be provided for her. Please see discussion below. CC: Pt complains of anxiety. ROS: Denied SOUZA/dizziness, F/C, N/V, CP, SOB, increased cough, sputum production , abd pain, diarrhea, constipation, dysuria, myalgias, arthralgias, throat pain , and new skin lesions. The rest of the 14 point ROS are unremarkable. PHYSICAL EXAM: GEN APPEARANCE: Awake, not in acute distress HEENT: NC/AT, PERRLA, moist oral mucosa, (-) throat erythema NECK: Soft, supple, (-) cervical LAD, (-)JVD HEART: S1S2 WNL, RRR, No MRG CHEST: CTA, BL, GAE, No W/R/R ABD: Soft, ND/NT, NABS 4x Q EXT: No C/C/E SKIN: Warm to touch, eschar on incision site on Left foot dorsum PSYCH: No active psychosis, hallucinations, depression, SI/HI Objective Active Medications: Acetaminophen (Tylenol Tab*) 975 mg PO Q8H [facility] Last Admin: 07/01/18 08:04 Dose: Not Given Docusate Sodium (Colace Cap*) 100 mg PO BID [facility] Last Admin: 07/01/18 08:01 Dose: Not Given Heparin Sodium (Porcine) (Heparin Vial(*)) 5,000 units SUBCUT Q8HR [facility] Last Admin: 07/01/18 12:34 Dose: Not Given Hydroxyzine HCl (Atarax Tab*) 25 mg PO Q6H PRN PRN Reason: ANXIETY Metronidazole/Sodium Chloride (Flagyl 500 Mg Ivpb*) 500 mg in 100 mls @ 100 mls /hr IVPB 0000,1200 [facility] Last Admin: 07/01/18 12:26 Dose: 100 mls/hr Ceftriaxone Sodium 1 gm/ (Sodium Chloride) 50 mls @ 200 mls/hr IVPB Q24H [facility] Last Admin: 07/01/18 15:51 Dose: 200 mls/hr Ketorolac Tromethamine (Toradol Inj*) 30 mg IV PUSH Q6H PRN PRN Reason: PAIN Last Admin: 07/01/18 06:15 Dose: 30 mg Methadone HCl (Dolophine Tab*) 10 mg PO TID [facility] Last Admin: 07/01/18 13:53 Dose: 10 mg Nicotine (Nicotine Inhaler*) 10 mg INH Q2H PRN PRN Reason: CRAVING Nicotine (Nicotine Patch 21 Mg/24 Hr*) 1 patch TRANSDERM DAILY [facility] Last Admin: 07/01/18 08:01 Dose: 1 patch Pharmacy Profile Note (Nicotine Patch Removal Note*) 1 note PATCH OFF 2100 [facility] Last Admin: 06/30/18 21:09 Dose: Not Given Prochlorperazine (Compazine Tab*) 10 mg PO Q8HR PRN PRN Reason: NAUSEA Senna (Senokot Tab*) 1 tab PO DAILY [facility] Last Admin: 07/01/18 08:00 Dose: Not Given Vital Signs - 8 hr 07/01/18 07/01/18 10:20 13:53 Respiratory 16 16 Rate Oxygen Devices in Use Now: None Result Diagrams: 07/01/18 09:40 07/01/18 09:40 Microbiology and Other Data: Microbiology 06/28/18 15:57 Aerobic Blood Culture - Preliminary Blood Venous No Growth Day 2 Anaerobic Blood Culture - Preliminary No Growth Day 2 06/28/18 14:27 Urine Culture - Final Urine Escherichia Coli Normal [place] Assess/Plan/Problems-Billing Assessment: - Patient Problems (1) Cellulitis of left foot Current Visit: Yes Status: Acute Code(s): L03.116 - CELLULITIS OF LEFT LOWER LIMB SNOMED Code(s): 612539997 Comment: -Continue Flagyl and Rocephin, abx day #3 -Appreciate ortho F/U and plan is to remove sutures, I&D, and placement of wound vac -Will place on NPO after midnight on Saturday in preparation for procedure above on -LLE CT scan reveals above without any evidence of osteomyelitis; pt thought not to be able to be still long enough for MRI to be helpful -Was seen and evaluated by Dr. Rojas yesterday who suggested that U/S be done to evaluate ankle jointsoft tissue U/S this did not suggest any abscess or drainable collection on exam -Will await any further recommendations from ortho (Dr. Rojas) -Appreciate wound consult---continue use of Xeroform (2) Anxiety Current Visit: Yes Status: Acute Code(s): F41.9 - ANXIETY DISORDER, UNSPECIFIED SNOMED Code(s): 90062885 Comment: -NO BZDs -Placed on Vistaril (3) Pain Current Visit: Yes Status: Acute Code(s): R52 - PAIN, UNSPECIFIED SNOMED Code(s): 07327267 Comment: -Well-controlled -Adjusted Methadone late afternoon yesterday per Dr. Mathew parameters (4) Bipolar disorder Current Visit: Yes Status: Acute Comment: -Defer to pts PCP and/or psychiatrist as outpt -Pt is psychiatrically stable at this time (5) DVT prophylaxis Current Visit: Yes Status: Acute Code(s): KPB6384 - SNOMED Code(s): 862028865 Comment: -Continue Heparin SQ Status and Disposition: -As above
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
[2018-07-01] MEDS ORDERED: Gabapentin CAP(*) 100 MG PO ONE (18:05)
[2018-07-01] MEDS: Gabapentin CAP(*) 100 MG PO SCH (20:41)
[2018-07-01] MEDS: Nicotine Patch Removal NOTE PATCH OFF SCH (21:03)
[2018-07-02] MEDS: Acetaminophen TAB* 325 MG PO SCH ×3 (00:59→18:20)
[2018-07-02] MEDS: Heparin VIAL(*) 5000 UNITS/ML VIAL (FIVE THOUSAND) SUBCUT SCH ×3 (05:12→20:07)
[2018-07-02] MEDS: Gabapentin CAP(*) 100 MG PO SCH ×2 (09:05→20:23)
[2018-07-02] MEDS: Nicotine PATCH 21 MG/24 HR* PATCH TRANSDERM SCH (09:08)
[2018-07-02] MEDS: Methadone TAB* 10 MG PO SCH ×3 (09:08→20:22)
[2018-07-02] MEDS: Senna TAB PO SCH (09:19)
[2018-07-02] MEDS: Docusate CAP* 100 MG PO SCH ×2 (09:19→20:07)
--- NOTE | 2018-07-02 11:14 | RAD ---
INDICATION: Right hand pain and swelling COMPARISON: None. TECHNIQUE: 4 views of the right hand were obtained. FINDINGS: The adequately corticated bones are in normal alignment. No significant focal osseous abnormality or fracture is seen. Joint spaces appear maintained. IMPRESSION: Normal right hand radiograph. If the patient's symptoms persist, follow-up imaging is recommended.
--- NOTE | 2018-07-02 11:15 | RAD ---
INDICATION: Right hand pain and swelling COMPARISON: Same day radiograph that does not reveal any abnormalities TECHNIQUE: Real time ultrasound images of the soft tissues of the right hand were acquired with ryan scale and Doppler color flow imaging. FINDINGS: Sonographic images of the dorsal right hand demonstrate a small degree of infiltration of the subcutaneous soft tissues. There is no drainable fluid collection. The visualized metacarpals are grossly normal. IMPRESSION: Mild soft tissue edema overlying the dorsal right hand.
[2018-07-02] MEDS: metroNIDAZOLE IV 500 MG/100ML* 500 MG/100 ML BAG IVPB SCH (12:54)
[2018-07-02] MEDS ORDERED: Buffered Lidocaine 0.9% SYRIN* 5 ML/SYR SYRINGE INTRADERM ONE (14:57)
--- NOTE | 2018-07-02 15:36 | PN ---
Subjective Date of Service: 07/02/18 Interval History: Pt seen and examined. Meds and labs reviewed. CC: Right hand swelling. Pt denies trauma or use of IV on hand. ROS: Denied SOUZA/dizziness, F/C, N/V, CP, SOB, increased cough, sputum production , abd pain, diarrhea, constipation, dysuria, myalgias, arthralgias, throat pain , and new skin lesions. The rest of the 14 point ROS are unremarkable. PHYSICAL EXAM: GEN APPEARANCE: Awake, not in acute distress HEENT: NC/AT, PERRLA, moist oral mucosa, (-) throat erythema NECK: Soft, supple, (-) cervical LAD, (-)JVD HEART: S1S2 WNL, RRR, No MRG CHEST: CTA, BL, GAE, No W/R/R ABD: Soft, ND/NT, NABS 4x Q EXT: No C/C/E, Right hand appeared to me to have old; there appears to be a small healing needle kranthi, although unclear of age SKIN: Warm to touch PSYCH: No active psychosis, hallucinations, depression, SI/HI Objective Active Medications: Acetaminophen (Tylenol Tab*) 975 mg PO Q8H [facility] Last Admin: 07/02/18 09:19 Dose: Not Given Docusate Sodium (Colace Cap*) 100 mg PO BID [facility] Last Admin: 07/02/18 09:19 Dose: Not Given Gabapentin (Neurontin Cap(*)) 200 mg PO BID [facility] Heparin Sodium (Porcine) (Heparin Vial(*)) 5,000 units SUBCUT Q8HR [facility] Stop: 07/02/18 23:59 Last Admin: 07/02/18 14:01 Dose: Not Given Hydroxyzine HCl (Atarax Tab*) 25 mg PO Q6H PRN PRN Reason: ANXIETY Metronidazole/Sodium Chloride (Flagyl 500 Mg Ivpb*) 500 mg in 100 mls @ 100 mls /hr IVPB 0000,1200 [facility] Last Admin: 07/02/18 12:54 Dose: 100 mls/hr Ceftriaxone Sodium 1 gm/ (Sodium Chloride) 50 mls @ 200 mls/hr IVPB Q24H [facility] Last Admin: 07/01/18 15:51 Dose: 200 mls/hr Lactated Ringer's (Lactated Ringers 1000 Ml Bag*) 1,000 mls @ 125 mls/hr IV PER RATE [facility] Ketorolac Tromethamine (Toradol Inj*) 30 mg IV PUSH Q6H PRN PRN Reason: PAIN Last Admin: 07/01/18 06:15 Dose: 30 mg Lidocaine/Sodium Bicarbonate (Buffered Lidocaine 0.9% Syrin*) 0.2 ml INTRADERM ONCE ONE Stop: 07/02/18 14:58 Methadone HCl (Dolophine Tab*) 10 mg PO TID [facility] Last Admin: 07/02/18 14:01 Dose: 10 mg Nicotine (Nicotine Inhaler*) 10 mg INH Q2H PRN PRN Reason: CRAVING Nicotine (Nicotine Patch 21 Mg/24 Hr*) 1 patch TRANSDERM DAILY [facility] Last Admin: 07/02/18 09:08 Dose: 1 patch Pharmacy Profile Note (Nicotine Patch Removal Note*) 1 note PATCH OFF 2100 [facility] Last Admin: 07/01/18 21:03 Dose: 1 note Prochlorperazine (Compazine Tab*) 10 mg PO Q8HR PRN PRN Reason: NAUSEA Senna (Senokot Tab*) 1 tab PO DAILY [facility] Last Admin: 07/02/18 09:19 Dose: Not Given Vital Signs - 8 hr 07/02/18 07/02/18 07/02/18 07:50 09:05 09:08 Temperature 98.2 F Pulse Rate 81 Respiratory 18 18 18 Rate Blood Pressure 115/72 (mmHg) O2 Sat by Pulse 97 Oximetry 07/02/18 07/02/18 07/02/18 11:18 13:59 14:01 Temperature 98.1 F Pulse Rate 62 Respiratory 18 18 18 Rate Blood Pressure 116/79 (mmHg) O2 Sat by Pulse 100 Oximetry Oxygen Devices in Use Now: None Result Diagrams: 07/01/18 09:40 07/01/18 09:40 Microbiology and Other Data: Microbiology 06/28/18 15:57 Aerobic Blood Culture - Preliminary Blood Venous No Growth Day 2 Anaerobic Blood Culture - Preliminary No Growth Day 2 06/28/18 14:27 Urine Culture - Final Urine Escherichia Coli Normal [place] Assess/Plan/Problems-Billing Assessment: - Patient Problems (1) Cellulitis of left foot Current Visit: Yes Status: Resolved Code(s): L03.116 - CELLULITIS OF LEFT LOWER LIMB SNOMED Code(s): 589426700 Comment: -Continue Flagyl and Rocephin, abx day #4 -Appreciate ortho F/U and plan is to remove sutures, I&D, and placement of wound vac tomorrow -NPO at midnight tonight -LLE CT scan reveals above without any evidence of osteomyelitis; pt thought not to be able to be still long enough for MRI to be helpful -Soft tissue U/S this did not suggest any abscess or drainable collection on exam -Will await any further recommendations from ortho (Dr. Rojas) -Appreciate wound consult---continue use of Xeroform (2) Swelling of right hand Current Visit: Yes Status: Acute Code(s): M79.89 - OTHER SPECIFIED SOFT TISSUE DISORDERS SNOMED Code(s): 004376780 Comment: -Unclear whether any attempt of injecting -Will obtain urine drug screen -Soft tissue U/S and Right hand x-ray, 3 views does not reveal any bony abnormalities nor abcess (3) Pain Current Visit: Yes Status: Acute Code(s): R52 - PAIN, UNSPECIFIED SNOMED Code(s): 76908083 Comment: -Well-controlled -Continue Methadone and Gabapentin -Appreciate Dr. Emiliana khan (4) Anxiety Current Visit: Yes Status: Acute Code(s): F41.9 - ANXIETY DISORDER, UNSPECIFIED SNOMED Code(s): 35519263 Comment: -NO BZDs -Placed on Vistaril (5) Bipolar disorder Current Visit: Yes Status: Acute Comment: -Defer to pts PCP and/or psychiatrist as outpt -Pt is psychiatrically stable at this time (6) DVT prophylaxis Current Visit: Yes Status: Acute Code(s): QDZ3661 - SNOMED Code(s): 316937847 Comment: -Continue Heparin SQ Status and Disposition: -As above
[2018-07-02] MEDS: cefTRIAXone(*) 1 GM in NS 0.9% 50 ML* 50 ML IVPB SCH (16:15)
[2018-07-02] MEDS: Nicotine Patch Removal NOTE PATCH OFF SCH (20:24)
[2018-07-03] MEDS: metroNIDAZOLE IV 500 MG/100ML* 500 MG/100 ML BAG IVPB SCH ×3 (00:08→23:08)
[2018-07-03] MEDS: Acetaminophen TAB* 325 MG PO SCH ×3 (01:01→18:32)
--- NOTE | 2018-07-03 06:46 | PN ---
Progress Note - Progress Note Date of Service: 07/02/18 SOAP: Subjective: []Patient seen and examined at bedside. She is feeling well though does complain of left foot pain. Objective: []General: NAD LLE: Left foot dressing changed. 8x4 cm area of yellow slough and purulence on the dorsum of the foot with mild surrounding erythema. BL calves supple and nontender without erythema, edema or palpable cords Assessment: []left foot infection Plan: [] WBAT NPO, hold heparin, aware and agreeable to OR tomorrow with Dr márquez for left foot I&D, vac placement
[2018-07-03 06:47] LABS: ABS Basophils 0 10^3/ul (0-0.2); ABS Eosinophils 0.6 10^3/ul (0-0.6); ABS Lymphocytes 2.8 10^3/ul (1.0-4.8); ABS Monocytes 0.3 10^3/ul (0-0.8); ABS Neutrophils 1.6 10^3/ul (1.5-7.7); ABS Nucleated RBC 0 10^3/ul; Eosinophil % 11.1 % (0-6); Hematocrit 38 % (35-47); Hemoglobin 12.9 g/dl (12.0-16.0); Lymphocyte % 52.8 % (25-47); Mean Corpuscular HGB Conc 34 g/dl (31-36); Mean Corpuscular Hemoglobin 29 pg (27-31); Mean Corpuscular Volume 85 fL (80-97); Mean Platelet Volume 8.6 um3 (7.4-10.4); Nucleated Red Blood Cells % 0.1; Platelet Count 316 10^3/ul (150-450); Red Blood Count 4.43 10^6/ul (4.00-5.40); Red Cell Distribution Width 15 % (10.5-15); White Blood Count 5.3 10^3/ul (3.5-10.8)
[2018-07-03 06:57] LABS: INR 0.91 (0.77-1.02)
[2018-07-03 07:16] LABS: EGFR Non-African American 124.7 (>60)
[2018-07-03] MEDS ORDERED: Magnesium Sulfate 2 GM IV* 2 GM/50 ML BAG IVPB ONE (09:00)
[2018-07-03] MEDS: Gabapentin CAP(*) 100 MG PO SCH ×2 (09:05→21:16)
[2018-07-03] MEDS: Methadone TAB* 10 MG PO SCH ×3 (09:05→21:16)
[2018-07-03] MEDS: Nicotine PATCH 21 MG/24 HR* PATCH TRANSDERM SCH (09:07)
[2018-07-03] MEDS: Senna TAB PO SCH (09:16)
[2018-07-03] MEDS: Docusate CAP* 100 MG PO SCH ×2 (09:16→21:40)
[2018-07-03] MEDS ORDERED: Propofol* 10 MG/ML 20 ML BTL IV PUSH ONE (15:25)
[2018-07-03] MEDS ORDERED: Midazolam* 1 MG/ML 2 ML VIAL (2 MG) ONE ×2 (15:26→17:16)
[2018-07-03] MEDS ORDERED: fentaNYL* 50 MCG/ML 2 ML VIAL (100 MCG VIAL) ONE ×3 (15:26→17:49)
[2018-07-03] MEDS ORDERED: ROPIVACAINE 5 MG/ML 30 ML BTL (0.5%) ONE (15:59)
[2018-07-03] MEDS ORDERED: KETAMINE HCL* 50 MG/ML 10 ML VIAL ONE (16:38)
[2018-07-03] MEDS ORDERED: ceFAZolin 1 GM ADVAN(*) 1 GM ADDV.VIAL IVPB ONE (16:40)
[2018-07-03] MEDS ORDERED: Lidocain 1% EPI 1:100,000 * 30 ML MDV ONE (16:41)
[2018-07-03] MEDS ORDERED: Acetaminophen TAB* 325 MG PO PRN (16:51)
[2018-07-03] MEDS ORDERED: Naloxone* 0.4 MG/ML 1 ML VIAL IV PRN (16:51)
[2018-07-03] MEDS: fentaNYL* 50 MCG/ML 2 ML VIAL (100 MCG VIAL) IV PRN ×4 (17:13→18:07)
[2018-07-03] MEDS: cefTRIAXone(*) 1 GM in NS 0.9% 50 ML* 50 ML IVPB SCH (18:28)
--- NOTE | 2018-07-03 18:32 | PN ---
Subjective Date of Service: 07/03/18 Interval History: Pt seen and examined. Meds and labs reviewed. Pt seen post op today and pt crying due to pain CC: Post-op pain ROS: Denied SOUZA/dizziness, F/C, N/V, CP, SOB, increased cough, sputum production , abd pain, diarrhea, constipation, dysuriathroat pain, and new skin lesions. The rest of the 14 point ROS are unremarkable. PHYSICAL EXAM: GEN APPEARANCE: Awake, not in acute distress HEENT: NC/AT, PERRLA, moist oral mucosa, (-) throat erythema NECK: Soft, supple, (-) cervical LAD, (-)JVD HEART: S1S2 WNL, RRR, No MRG CHEST: CTA, BL, GAE, No W/R/R ABD: Soft, ND/NT, NABS 4x Q EXT: No C/C/LLE cdi SKIN: Warm to touch PSYCH: No active psychosis, hallucinations, depression, SI/HI Objective Active Medications: Acetaminophen (Tylenol Tab*) 975 mg PO Q8H [facility] Last Admin: 07/03/18 09:16 Dose: Not Given Acetaminophen (Tylenol Tab*) 650 mg PO ONCE PRN PRN Reason: PAIN - MILD Docusate Sodium (Colace Cap*) 100 mg PO BID [facility] Last Admin: 07/03/18 09:16 Dose: Not Given Fentanyl Citrate (Fentanyl*) 50 mcg IV Q5M PRN PRN Reason: PAIN - MODERATE Last Admin: 07/03/18 18:07 Dose: 50 mcg Gabapentin (Neurontin Cap(*)) 200 mg PO BID [facility] Last Admin: 07/03/18 09:05 Dose: 200 mg Hydroxyzine HCl (Atarax Tab*) 25 mg PO Q6H PRN PRN Reason: ANXIETY Metronidazole/Sodium Chloride (Flagyl 500 Mg Ivpb*) 500 mg in 100 mls @ 100 mls /hr IVPB 0000,1200 [facility] Last Admin: 07/03/18 00:08 Dose: 100 mls/hr Ceftriaxone Sodium 1 gm/ (Sodium Chloride) 50 mls @ 200 mls/hr IVPB Q24H [facility] Last Admin: 07/03/18 18:28 Dose: Not Given Lactated Ringer's (Lactated Ringers 1000 Ml Bag*) 1,000 mls @ 125 mls/hr IV PER RATE [facility] Methadone HCl (Dolophine Tab*) 10 mg PO TID [facility] Last Admin: 07/03/18 16:46 Dose: Not Given Naloxone HCl (Narcan*) 0.08 mg IV Q2M PRN PRN Reason: severe induced resp depression Nicotine (Nicotine Inhaler*) 10 mg INH Q2H PRN PRN Reason: CRAVING Nicotine (Nicotine Patch 21 Mg/24 Hr*) 1 patch TRANSDERM DAILY [facility] Last Admin: 07/03/18 09:07 Dose: 1 patch Pharmacy Profile Note (Nicotine Patch Removal Note*) 1 note PATCH OFF 2099 [facility] Last Admin: 07/02/18 20:24 Dose: 1 note Prochlorperazine (Compazine Tab*) 10 mg PO Q8HR PRN PRN Reason: NAUSEA Senna (Senokot Tab*) 1 tab PO DAILY [facility] Last Admin: 07/03/18 09:16 Dose: Not Given Vital Signs - 8 hr 07/03/18 07/03/18 07/03/18 11:07 11:36 11:43 Temperature 98.0 F Pulse Rate 68 Respiratory 14 14 14 Rate Blood Pressure 105/71 (mmHg) O2 Sat by Pulse 98 Oximetry 07/03/18 07/03/18 07/03/18 17:04 17:13 17:15 Temperature 98.6 F Pulse Rate 86 86 Respiratory 20 24 22 Rate Blood Pressure 149/99 184/102 (mmHg) O2 Sat by Pulse 99 Oximetry 07/03/18 07/03/18 07/03/18 17:38 17:45 17:53 Temperature 97.7 F Pulse Rate Respiratory 24 16 Rate Blood Pressure (mmHg) O2 Sat by Pulse Oximetry 07/03/18 07/03/18 18:07 18:16 Temperature Pulse Rate 73 Respiratory 16 Rate Blood Pressure 130/81 (mmHg) O2 Sat by Pulse 99 Oximetry Oxygen Devices in Use Now: None Result Diagrams: 07/03/18 06:40 07/03/18 06:20 Microbiology and Other Data: Microbiology 06/28/18 15:57 Aerobic Blood Culture - Preliminary Blood Venous No Growth Day 2 Anaerobic Blood Culture - Preliminary No Growth Day 2 06/28/18 14:27 Urine Culture - Final Urine Escherichia Coli Normal [place] Assess/Plan/Problems-Billing Assessment: - Patient Problems (1) Cellulitis of left foot Current Visit: Yes Status: Resolved Code(s): L03.116 - CELLULITIS OF LEFT LOWER LIMB SNOMED Code(s): 303403673 Comment: -Continue Flagyl and Rocephin, abx day #5 -S/P I&D, and placement of wound vac tomorrow---defer any additional PRN pain meds post-op with orthopedics -LLE CT scan reveals above without any evidence of osteomyelitis; pt thought not to be able to be still long enough for MRI to be helpful -Soft tissue U/S this did not suggest any abscess or drainable collection on exam -Will await any further recommendations from ortho (Dr. Rojas) -Appreciate wound consult---continue use of Xeroform (2) Pain Current Visit: Yes Status: Acute Code(s): R52 - PAIN, UNSPECIFIED SNOMED Code(s): 87987652 Comment: -Well-controlled -Continue Methadone and Gabapentin -Appreciate Dr. Emiliana khan (3) Anxiety Current Visit: Yes Status: Acute Code(s): F41.9 - ANXIETY DISORDER, UNSPECIFIED SNOMED Code(s): 50503461 Comment: -Please see above discussion -Pt still in PACU at this time -Continue Methadone and Gabapentin -Appreciate Dr. Emiliana khan (4) Bipolar disorder Current Visit: Yes Status: Acute Comment: -Defer to pts PCP and/or psychiatrist as outpt -Pt is psychiatrically stable at this time (5) DVT prophylaxis Current Visit: Yes Status: Acute Code(s): URP3594 - SNOMED Code(s): 812932071 Comment: -Continue Heparin SQ Status and Disposition: -As above
[2018-07-03] MEDS: Morphine INJ* 2 MG/ML 1 ML SYRINGE (TWO MG - NEW SYRINGE VERSION) IV PRN ×2 (19:53→23:57)
--- NOTE | 2018-07-03 20:03 | OP ---
Operative Report - Blank - Operative Report Date of Operation: 07/03/18 Note: PATIENT: Mary Doyle DATE OF : 1985 DATE OF SURGERY: 07/03/2018 SURGEON: Dalton Wolff MD DEPARTMENT ADMINISTRATOR: ISAC Nguyen, whos assistance was necessary for positioning, retraction, help with instrumentation, and closure. ANESTHESIOLOGIST: Dr. Anderson PREOPERATIVE DIAGNOSIS: Left foot infection POSTOPERATIVE DIAGNOSIS: Left foot infection OPERATION: 1. Left foot irrigation and debridement 2. Placement of wound VAC to left foot ANESTHESIA: MAC IMPLANTS: None TOURNIQUET TIME: None SPECIMENS: None ESTIMATED BLOOD LOSS: Minimal COMPLICATIONS: none STATUS: Stable from the operating room to the recovery room and then back to the medical floor INDICATIONS FOR PROCEDURE: Mary had a prior left foot irrigation and debridement for an abscess after IV drug use. She has developed wound breakdown and recurrent infection. Both operative and non-operative treatment alternatives were reviewed. Further, the nature and risks of surgery were reviewed in careful detail in the pre- operative holding area. Our discussions regarding the risks of surgery included , but were not limited to, persistent or worsening infection, wound problems, nerve injury, neuroma, RSD, persistent symptoms, blood clot, failure of the surgery, and even the remote chance of catastrophic complication, including loss of limb. DESCRIPTION OF PROCEDURE: The patient was seen in the preoperative holding unit and informed written consent was obtained. The appropriate extremity was marked. The patient was then brought to the operating room and carefully positioned on the operating room table. Anesthesia was induced. All bony prominences were padded with great care. A well-padded thigh tourniquet was placed. A chlorhexidine based pre- scrub was performed followed by a chloraprep prep and drape in standard sterile fashion. A surgical safety pause was then conducted in which we confirmed the appropriate patient, extremity, planned procedure, availability of equipment, indication and administration of prophylactic antibiotics, and DVT prophylaxis in the form of a compression boot on the non-surgical extremity. I began by making an incision and ellipsing out the infected and necrotic skin. The resulting wound measured 8 cm in length by 4 cm in width. I then sharply debrided all nonviable and infected-appearing tissue at the skin, subcutaneous, fascial, and muscular layers. This was performed sharply with a 15 blade scalpel. After all nonviable and infected-appearing tissue was excised, the wound was then copiously irrigated with sterile saline. The remaining wound bed appeared healthy. There was no way to close the wound, so a wound VAC was placed with good suction. A sterile dressing was then applied. The patient was then awakened from anesthesia and transferred to the recovery room in stable condition. There were no complications. All needle and sponge counts were correct at the end of the case. ATTESTATION: I attest I was present and scrubbed and performed the critical portions of the procedure myself. POSTOPERATIVE PLAN: She will have wound VAC changes every 3 days. She will continue on antibiotics as guided by the infectious disease service.
[2018-07-03] MEDS: oxyCODONE TAB* 5 MG TAB PO PRN ×2 (21:22→23:01)
[2018-07-03] MEDS: Nicotine Patch Removal NOTE PATCH OFF SCH (21:40)
[2018-07-04] MEDS: Acetaminophen TAB* 325 MG PO SCH ×3 (02:07→16:37)
[2018-07-04] MEDS: Morphine INJ* 2 MG/ML 1 ML SYRINGE (TWO MG - NEW SYRINGE VERSION) IV PRN ×6 (05:14→20:40)
[2018-07-04] MEDS ORDERED: Magnesium Sulfate IV* 3 GM in NS 0.9% 100 ML* 100 ML IVPB ONE (08:35)
[2018-07-04] MEDS: Senna TAB PO SCH (09:10)
[2018-07-04] MEDS: Docusate CAP* 100 MG PO SCH ×2 (09:10→20:41)
[2018-07-04] MEDS: Gabapentin CAP(*) 100 MG PO SCH (09:12)
[2018-07-04] MEDS: Methadone TAB* 10 MG PO SCH ×3 (09:12→20:39)
[2018-07-04] MEDS: Nicotine PATCH 21 MG/24 HR* PATCH TRANSDERM SCH (09:13)
[2018-07-04] MEDS: Heparin VIAL(*) 5000 UNITS/ML VIAL (FIVE THOUSAND) SUBCUT SCH ×2 (09:14→20:40)
[2018-07-04 09:55] LABS: ABS Basophils 0 10^3/ul (0-0.2); ABS Eosinophils 0.6 10^3/ul (0-0.6); ABS Lymphocytes 2.8 10^3/ul (1.0-4.8); ABS Monocytes 0.3 10^3/ul (0-0.8); ABS Neutrophils 1.4 10^3/ul (1.5-7.7); ABS Nucleated RBC 0 10^3/ul; Eosinophil % 12.3 % (0-6); Hematocrit 38 % (35-47); Hemoglobin 12.7 g/dl (12.0-16.0); Lymphocyte % 54.2 % (25-47); Mean Corpuscular HGB Conc 34 g/dl (31-36); Mean Corpuscular Hemoglobin 29 pg (27-31); Mean Corpuscular Volume 86 fL (80-97); Mean Platelet Volume 8.8 um3 (7.4-10.4); Nucleated Red Blood Cells % 0.2; Platelet Count 320 10^3/ul (150-450); Red Blood Count 4.43 10^6/ul (4.00-5.40); Red Cell Distribution Width 15 % (10.5-15); White Blood Count 5.2 10^3/ul (3.5-10.8)
[2018-07-04 10:16] LABS: EGFR Non-African American 115.1 (>60)
[2018-07-04 10:18] LABS: INR 0.86 (0.77-1.02)
--- NOTE | 2018-07-04 11:16 | PN ---
Progress Note - Progress Note Date of Service: 07/04/18 SOAP: Subjective: ]Patient seen and examined at bedside. She is feeling well though does complain of left foot pain. Objective: []General: NAD LLE: Dressing is CDI. Wound vac is operational with minimal fluid at this time. BL calves supple and nontender without erythema, edema or palpable cords Vital Signs Temp 97.3 F 07/04/18 07:32 Pulse 64 07/04/18 07:32 Resp 18 07/04/18 11:03 BP 99/61 07/04/18 07:32 Pulse Ox 100 07/04/18 07:32 Intake & Output 07/03/18 07/04/18 07/04/18 18:59 06:59 18:59 Intake Total 50 0 0 Balance 50 0 0 Intake: IV Fluids 50 NS 50ML, Cefazolin 1G 50 Oral 0 0 Other: Estimated Void Medium Medium # Bowel Movements 0 Estimated Stool Amount Small # Voids 1 1 Assessment: []S/P left foot I&D with placement of wound vac Plan: [] WBAT Continue with current pain meds Wound vac change on saturday.
[2018-07-04] MEDS: metroNIDAZOLE IV 500 MG/100ML* 500 MG/100 ML BAG IVPB SCH (11:55)
[2018-07-04] MEDS: Gabapentin CAP(*) 300 MG PO SCH ×2 (13:55→20:39)
[2018-07-04] MEDS: cefTRIAXone(*) 1 GM in NS 0.9% 50 ML* 50 ML IVPB SCH (13:56)
[2018-07-04] MEDS: oxyCODONE TAB* 5 MG TAB PO PRN ×2 (15:02→19:19)
--- NOTE | 2018-07-04 16:36 | PN ---
Subjective Date of Service: 07/04/18 Interval History: Pt seen and examined. Meds and labs reviewed. Pt appeared comfortable to me early this AM during morning rounds, however, received call from pt advocate later that pt is in pain. Dr. Barrett informed. Please see discussion below CC: Left foot pain; pt also complains of rhinorrhea as if she has a cold. ROS: Denied SOUZA/dizziness, F/C, N/V, CP, SOB, increased cough, sputum production , abd pain, diarrhea, constipation, dysuria, throat pain, and new skin lesions. The rest of the 14 point ROS are unremarkable. PHYSICAL EXAM: GEN APPEARANCE: Awake, not in acute distress HEENT: NC/AT, PERRLA, moist oral mucosa, (-) throat erythema NECK: Soft, supple, (-) cervical LAD, (-)JVD HEART: S1S2 WNL, RRR, No MRG CHEST: CTA, BL, GAE, No W/R/R ABD: Soft, ND/NT, NABS 4x Q EXT: No C/C/LLE cdi SKIN: Warm to touch PSYCH: No active psychosis, hallucinations, depression, SI/HI Objective Active Medications: Acetaminophen (Tylenol Tab*) 975 mg PO Q8H [facility] Last Admin: 07/04/18 09:21 Dose: Not Given Docusate Sodium (Colace Cap*) 100 mg PO BID [facility] Last Admin: 07/04/18 09:10 Dose: Not Given Gabapentin (Neurontin Cap(*)) 300 mg PO TID [facility] Last Admin: 07/04/18 13:55 Dose: 300 mg Heparin Sodium (Porcine) (Heparin Vial(*)) 5,000 units SUBCUT Q12HR [facility] Last Admin: 07/04/18 09:14 Dose: Not Given Hydroxyzine HCl (Atarax Tab*) 25 mg PO Q6H PRN PRN Reason: ANXIETY Metronidazole/Sodium Chloride (Flagyl 500 Mg Ivpb*) 500 mg in 100 mls @ 100 mls /hr IVPB 0000,1200 [facility] Last Admin: 07/04/18 11:55 Dose: 100 mls/hr Ceftriaxone Sodium 1 gm/ (Sodium Chloride) 50 mls @ 200 mls/hr IVPB Q24H [facility] Last Admin: 07/04/18 13:56 Dose: 200 mls/hr Lactated Ringer's (Lactated Ringers 1000 Ml Bag*) 1,000 mls @ 125 mls/hr IV PER RATE [facility] Methadone HCl (Dolophine Tab*) 10 mg PO TID [facility] Last Admin: 07/04/18 13:54 Dose: 10 mg Morphine Sulfate (Morphine Inj ((Syringe))*) 2 mg IV Q2H PRN PRN Reason: PAIN - BREAKTHROUGH Last Admin: 07/04/18 13:56 Dose: 2 mg Nicotine (Nicotine Inhaler*) 10 mg INH Q2H PRN PRN Reason: CRAVING Nicotine (Nicotine Patch 21 Mg/24 Hr*) 1 patch TRANSDERM DAILY [facility] Last Admin: 07/04/18 09:13 Dose: 1 patch Oxycodone HCl (Roxycodone Tab*) 5 mg PO Q4H PRN PRN Reason: PAIN - MODERATE Last Admin: 07/03/18 23:01 Dose: 5 mg Oxycodone HCl (Roxycodone Tab*) 10 mg PO Q4H PRN PRN Reason: PAIN - SEVERE Last Admin: 07/04/18 15:02 Dose: 10 mg Oxymetazoline HCl (Afrin 0.05% Nasal [place]*) 2 spray BOTH NARES BID [facility] Stop: 07/07/18 20:59 Pharmacy Profile Note (Nicotine Patch Removal Note*) 1 note PATCH OFF 2100 [facility] Last Admin: 07/03/18 21:40 Dose: Not Given Prochlorperazine (Compazine Tab*) 10 mg PO Q8HR PRN PRN Reason: NAUSEA Senna (Senokot Tab*) 1 tab PO DAILY [facility] Last Admin: 07/04/18 09:10 Dose: Not Given Vital Signs - 8 hr 07/04/18 07/04/18 07/04/18 09:12 09:13 09:54 Respiratory 16 16 16 Rate 07/04/18 07/04/18 07/04/18 10:30 11:03 11:54 Respiratory 20 18 16 Rate 07/04/18 07/04/18 07/04/18 13:19 13:54 13:55 Respiratory 16 14 14 Rate 07/04/18 07/04/18 13:56 15:02 Respiratory 14 16 Rate Oxygen Devices in Use Now: None Result Diagrams: 07/04/18 09:33 07/04/18 09:33 Microbiology and Other Data: Microbiology 06/28/18 15:57 Aerobic Blood Culture - Preliminary Blood Venous No Growth Day 2 Anaerobic Blood Culture - Preliminary No Growth Day 2 06/28/18 14:27 Urine Culture - Final Urine Escherichia Coli Normal [place] Assess/Plan/Problems-Billing Assessment: - Patient Problems (1) Cellulitis of left foot Current Visit: Yes Status: Resolved Code(s): L03.116 - CELLULITIS OF LEFT LOWER LIMB SNOMED Code(s): 651003738 Comment: -Continue Flagyl and Rocephin, abx day #6; per ID (Dr. Pyle): Continue with current abx therapy while hospitalized and when D/Cd, place pt on Bactrim DS x 2 weeks -Wound vac scheduled to be changed Saturday -S/P I&D, and placement of wound vac yesterday -LLE CT scan reveals above without any evidence of osteomyelitis; pt thought not to be able to be still long enough for MRI to be helpful (2) Pain Current Visit: Yes Status: Acute Code(s): R52 - PAIN, UNSPECIFIED SNOMED Code(s): 92664617 Comment: -Continue Methadone and Gabapentin, Oxycodone, and Morphine PRN -D/W Dr. Barrett---will defer with any further changes once evaluated -Appreciate Dr. Hopson pro-active help (3) Anxiety Current Visit: Yes Status: Acute Code(s): F41.9 - ANXIETY DISORDER, UNSPECIFIED SNOMED Code(s): 01670071 Comment: -Continue Hydroxyzine PRN (4) Rhinorrhea Current Visit: Yes Status: Acute Code(s): J34.89 - OTHER SPECIFIED DISORDERS OF NOSE AND NASAL SINUSES SNOMED Code(s): 90783466 Comment: -Will place on Afrin to BL nares x 3days as ordered (5) Bipolar disorder Current Visit: Yes Status: Acute Comment: -Defer to pts PCP and/or psychiatrist as outpt -Pt is psychiatrically stable at this time (6) DVT prophylaxis Current Visit: Yes Status: Acute Code(s): FCE0938 - SNOMED Code(s): 560947748 Comment: -Continue Heparin SQ Status and Disposition: -Pt scheduled for wound-vac change on Saturday -technical services manager working on wound vac needs and equipment that is expected to be approved on Saturday and will defer
[2018-07-04] MEDS: Oxymetazoline 0.05% NASAL SPR* 15 ML BTL BOTH NARES SCH (20:41)
[2018-07-04] MEDS: Nicotine Patch Removal NOTE PATCH OFF SCH (20:44)
[2018-07-05] MEDS: metroNIDAZOLE IV 500 MG/100ML* 500 MG/100 ML BAG IVPB SCH ×3 (00:14→23:52)
[2018-07-05] MEDS: Morphine INJ* 2 MG/ML 1 ML SYRINGE (TWO MG - NEW SYRINGE VERSION) IV PRN ×6 (00:14→21:22)
[2018-07-05] MEDS: Acetaminophen TAB* 325 MG PO SCH ×3 (03:14→20:06)
[2018-07-05] MEDS: oxyCODONE TAB* 5 MG TAB PO PRN ×3 (05:59→20:07)
[2018-07-05 06:59] LABS: Urine Appearance Clear; Urine Blood 3+ (Negative); Urine Color Yellow; Urine Ketones Negative (Negative); Urine Protein Negative (Negative); Urine Red Blood Cell 3+(>10/hpf) (Absent); Urine Urobilinogen Negative (Negative); Urine White Blood Cell Trace(0-5/hpf) (Absent)
[2018-07-05] MEDS: Gabapentin CAP(*) 300 MG PO SCH ×3 (08:34→21:19)
[2018-07-05] MEDS: Methadone TAB* 10 MG PO SCH ×3 (08:35→21:19)
[2018-07-05] MEDS: Nicotine PATCH 21 MG/24 HR* PATCH TRANSDERM SCH (08:37)
--- NOTE | 2018-07-05 08:37 | PN ---
Subjective Date of Service: 07/05/18 Interval History: Patient states that her L foot hurts "all the time" and that the pills don't work, only IV morphine works. No bowel c/o. Objective Active Medications: Acetaminophen (Tylenol Tab*) 975 mg PO Q8H [facility] Last Admin: 07/05/18 03:14 Dose: Not Given Docusate Sodium (Colace Cap*) 100 mg PO BID [facility] Last Admin: 07/04/18 20:41 Dose: Not Given Gabapentin (Neurontin Cap(*)) 300 mg PO TID [facility] Last Admin: 07/04/18 20:39 Dose: 300 mg Heparin Sodium (Porcine) (Heparin Vial(*)) 5,000 units SUBCUT Q12HR [facility] Last Admin: 07/04/18 20:40 Dose: Not Given Hydroxyzine HCl (Atarax Tab*) 25 mg PO Q6H PRN PRN Reason: ANXIETY Metronidazole/Sodium Chloride (Flagyl 500 Mg Ivpb*) 500 mg in 100 mls @ 100 mls /hr IVPB 0000,1200 [facility] Last Admin: 07/05/18 00:14 Dose: 100 mls/hr Ceftriaxone Sodium 1 gm/ (Sodium Chloride) 50 mls @ 200 mls/hr IVPB Q24H [facility] Last Admin: 07/04/18 13:56 Dose: 200 mls/hr Methadone HCl (Dolophine Tab*) 10 mg PO TID [facility] Last Admin: 07/04/18 20:39 Dose: 10 mg Morphine Sulfate (Morphine Inj ((Syringe))*) 2 mg IV Q2H PRN PRN Reason: PAIN - BREAKTHROUGH Last Admin: 07/05/18 00:14 Dose: 2 mg Nicotine (Nicotine Inhaler*) 10 mg INH Q2H PRN PRN Reason: CRAVING Nicotine (Nicotine Patch 21 Mg/24 Hr*) 1 patch TRANSDERM DAILY [facility] Last Admin: 07/04/18 09:13 Dose: 1 patch Oxycodone HCl (Roxycodone Tab*) 5 mg PO Q4H PRN PRN Reason: PAIN - MODERATE Last Admin: 07/03/18 23:01 Dose: 5 mg Oxycodone HCl (Roxycodone Tab*) 10 mg PO Q4H PRN PRN Reason: PAIN - SEVERE Last Admin: 07/05/18 05:59 Dose: 10 mg Oxymetazoline HCl (Afrin 0.05% Nasal [place]*) 2 spray BOTH NARES BID [facility] Stop: 07/07/18 20:59 Last Admin: 07/04/18 20:41 Dose: Not Given Pharmacy Profile Note (Nicotine Patch Removal Note*) 1 note PATCH OFF 2100 [facility] Last Admin: 07/04/18 20:44 Dose: 1 note Prochlorperazine (Compazine Tab*) 10 mg PO Q8HR PRN PRN Reason: NAUSEA Senna (Senokot Tab*) 1 tab PO DAILY [facility] Last Admin: 07/04/18 09:10 Dose: Not Given Vital Signs - 8 hr 07/05/18 07/05/18 01:29 05:59 Respiratory 18 20 Rate Oxygen Devices in Use Now: None Appearance: Alert, sitting up in bed. Somewhat restless in bed, otherwise looks comfortable. Eyes: No Scleral Icterus Neck: NL Appearance and Movements; NL JVP, No Thyroid Enlargement, Masses Respiratory: Symmetrical Chest Expansion and Respiratory Effort, Clear to Auscultation, Clear to Percussion Cardiovascular: NL Sounds; No Murmurs; No JVD, RRR, No Edema, - Extremities: No Edema, No Clubbing, Cyanosis, - Skin: No Nodules or Sclerosis, - - L foot wrapped, dressing CDI. Neurological: Alert and Oriented x 3, NL Sensation Result Diagrams: 07/04/18 09:33 07/04/18 09:33 Microbiology and Other Data: Microbiology 06/28/18 15:57 Aerobic Blood Culture - Preliminary Blood Venous No Growth Day 2 Anaerobic Blood Culture - Preliminary No Growth Day 2 06/28/18 14:27 Urine Culture - Final Urine Escherichia Coli Normal [place] Assess/Plan/Problems-Billing Assessment: - Patient Problems (1) Abscess of left foot Current Visit: No Status: Acute Code(s): L02.612 - CUTANEOUS ABSCESS OF LEFT FOOT SNOMED Code(s): 563647606 Comment: WoundVac applied 07/03 after debridement. Continue ceftri/metro per Dr. Pyle. Note consistently afebrile, nl WBC. May repeat CRP in a few days. (2) IV drug abuse Current Visit: No Status: Acute Code(s): F19.10 - OTHER PSYCHOACTIVE SUBSTANCE ABUSE, UNCOMPLICATED SNOMED Code(s): 450013434 Comment: Difficult to assess her level of pain. I would expect much less wound pain since debridement and IV antibiotics. No changes in methadone, MS, oxycodone 07/05/18. (3) Bipolar disorder Current Visit: Yes Status: Acute Comment: Appears compensated as of 07/05. Hydroxyzine PRN. (4) Tobacco abuse Current Visit: No Status: Acute Code(s): Z72.0 - TOBACCO USE SNOMED Code(s ): 283019659 Comment: Pt advised to quit smoking and avoid second hand smoke. Continue NRT. Status and Disposition: -Pt scheduled for wound-vac change on Saturday -banking services officer working on wound vac needs and equipment that is expected to be approved on Saturday and will defer
[2018-07-05] MEDS: Heparin VIAL(*) 5000 UNITS/ML VIAL (FIVE THOUSAND) SUBCUT SCH ×2 (08:47→21:15)
[2018-07-05] MEDS: Senna TAB PO SCH (08:48)
[2018-07-05] MEDS: Oxymetazoline 0.05% NASAL SPR* 15 ML BTL BOTH NARES SCH ×2 (08:48→20:25)
[2018-07-05] MEDS: Docusate CAP* 100 MG PO SCH ×2 (08:48→20:24)
[2018-07-05] MEDS: hydrOXYzine HCL TAB* 25 MG PO PRN ×3 (08:50→21:19)
[2018-07-05] MEDS: cefTRIAXone(*) 1 GM in NS 0.9% 50 ML* 50 ML IVPB SCH (15:14)
--- NOTE | 2018-07-05 17:59 | PN ---
Progress Note - Progress Note Date of Service: 07/05/18 SOAP: Subjective: Pt seen at bedside. She complains of burning pain in left foot. No complaint otherwise. Denies F/C, N/T. Vital Signs: Temp Pulse Resp BP Pulse Ox 97.9 F 86 18 105/73 100 07/05/18 11:50 07/05/18 11:50 07/05/18 17:38 07/05/18 11:50 07/05/18 11:50 Laboratory Last Values WBC 5.2 10^3/ul (3.5-10.8) 07/04/18 09:33 RBC 4.43 10^6/ul (4.00-5.40) 07/04/18 09:33 Hgb 12.7 g/dl (12.0-16.0) 07/04/18 09:33 Hct 38 % (35-47) 07/04/18 09:33 MCV 86 fL (80-97) 07/04/18 09:33 MCH 29 pg (27-31) 07/04/18 09:33 MCHC 34 g/dl (31-36) 07/04/18 09:33 RDW 15 % (10.5-15) 07/04/18 09:33 Plt Count 320 10^3/ul (150-450) 07/04/18 09:33 MPV 8.8 um3 (7.4-10.4) 07/04/18 09:33 Neut % (Auto) 27.7 % (38-83) L 07/04/18 09:33 Lymph % (Auto) 54.2 % (25-47) H 07/04/18 09:33 [place] % (Auto) 5.5 % (0-7) 07/04/18 09:33 Eos % (Auto) 12.3 % (0-6) H 07/04/18 09:33 Baso % (Auto) 0.3 % (0-2) 07/04/18 09:33 Absolute Neuts (auto) 1.4 10^3/ul (1.5-7.7) L 07/04/18 09:33 Absolute Lymphs (auto) 2.8 10^3/ul (1.0-4.8) 07/04/18 09:33 Absolute Monos (auto) 0.3 10^3/ul (0-0.8) 07/04/18 09:33 Absolute Eos (auto) 0.6 10^3/ul (0-0.6) 07/04/18 09:33 Absolute Basos (auto) 0 10^3/ul (0-0.2) 07/04/18 09:33 Absolute Nucleated RBC 0 10^3/ul 07/04/18 09:33 Nucleated RBC % 0.2 07/04/18 09:33 ESR 37 mm/Hr (0-14) H 07/01/18 09:40 INR (Anticoag Therapy) 0.86 (0.77-1.02) 07/04/18 09:33 APTT 33.0 seconds (26.0-36.3) 07/04/18 09:33 Sodium 139 mmol/L (135-145) 07/04/18 09:33 Potassium 3.8 mmol/L (3.5-5.0) 07/04/18 09:33 Chloride 104 mmol/L (101-111) 07/04/18 09:33 Carbon Dioxide 28 mmol/L (22-32) 07/04/18 09:33 Anion Gap 7 mmol/L (2-11) 07/04/18 09:33 BUN 5 mg/dL (6-24) L 07/04/18 09:33 Creatinine 0.60 mg/dL (0.51-0.95) 07/04/18 09:33 Est GFR ( Amer) 139.3 (>60) 07/04/18 09:33 Est GFR (Non-Af Amer) 115.1 (>60) 07/04/18 09:33 BUN/Creatinine Ratio 8.3 (8-20) 07/04/18 09:33 Glucose 102 mg/dL (70-100) H 07/04/18 09:33 Lactic Acid 0.8 mmol/L (0.5-2.0) 06/28/18 15:57 Calcium 9.2 mg/dL (8.6-10.3) 07/04/18 09:33 Phosphorus 5.5 mg/dL (2.5-5.0) H 07/03/18 06:20 Magnesium 1.8 mg/dL (1.9-2.7) L 07/05/18 05:58 Total Bilirubin 0.20 mg/dL (0.2-1.0) 07/03/18 06:20 AST 32 U/L (13-39) 07/03/18 06:20 ALT 22 U/L (7-52) 07/03/18 06:20 Alkaline Phosphatase 118 U/L (34-104) H 07/03/18 06:20 C-Reactive Protein 20.18 mg/L (<8.01) H 07/01/18 09:40 Total Protein 7.0 g/dL (6.4-8.9) 07/03/18 06:20 Albumin 3.5 g/dL (3.2-5.2) 07/03/18 06:20 Globulin 3.5 g/dL (2-4) 07/03/18 06:20 Albumin/Globulin Ratio 1.0 (1-3) 07/03/18 06:20 Urine Color Yellow 07/05/18 05:25 Urine Appearance Clear 07/05/18 05:25 Urine pH 6.0 (5-9) 07/05/18 05:25 Ur Specific [place] 1.010 (1.010-1.030) 07/05/18 05:25 Urine Protein Negative (Negative) 07/05/18 05:25 Urine Ketones Negative (Negative) 07/05/18 05:25 Urine Blood 3+ (Negative) A 07/05/18 05:25 Urine Nitrate Negative (Negative) 07/05/18 05:25 Urine Bilirubin Negative (Negative) 07/05/18 05:25 Urine Urobilinogen Negative (Negative) 07/05/18 05:25 Ur Leukocyte Esterase Trace (Negative) A 07/05/18 05:25 Urine WBC (Auto) Trace(0-5/hpf) (Absent) 07/05/18 05:25 Urine RBC (Auto) 3+(>10/hpf) (Absent) A 07/05/18 05:25 Ur Squamous Epith Cells Present (Absent) A 07/05/18 05:25 Urine Bacteria Absent (Absent) 07/05/18 05:25 Hyaline Casts Present (Absent) A 06/28/18 14:27 Urine Yeast Present (Absent) A 06/28/18 14:27 Urine Glucose Negative (Negative) 07/05/18 05:25 Urine Opiates Screen None detected (None Detect) 07/03/18 00:14 Ur Barbiturates Screen None detected (None Detect) 07/03/18 00:14 Ur Phencyclidine Scrn None detected (None Detect) 07/03/18 00:14 Ur Amphetamines Screen None detected (None Detect) 07/03/18 00:14 U Benzodiazepines Scrn None detected (None Detect) 07/03/18 00:14 Urine Cocaine Screen None detected (None Detect) 07/03/18 00:14 U Cannabinoids Screen None detected (None Detect) 07/03/18 00:14 Hepatitis C Antibody High reactive (Nonreactive) A 07/01/18 09:40 HIV 1&2 Antibody Nonreactive (Nonreactive) 07/01/18 09:40 Objective: Dressing C/D/I. Wound vac intact. Calves soft, nontender. No erythema or edema. Assessment: s/p left foot I&D with wound vac placement Plan: OOB WBAT Pain control Wound vac change on Saturday
[2018-07-05] MEDS: Nicotine Patch Removal NOTE PATCH OFF SCH (21:20)
[2018-07-06] MEDS: Acetaminophen TAB* 325 MG PO SCH ×3 (01:34→17:29)
[2018-07-06] MEDS: Morphine INJ* 2 MG/ML 1 ML SYRINGE (TWO MG - NEW SYRINGE VERSION) IV PRN ×6 (03:00→21:05)
[2018-07-06] MEDS: hydrOXYzine HCL TAB* 25 MG PO PRN ×3 (03:05→21:09)
[2018-07-06] MEDS: oxyCODONE TAB* 5 MG TAB PO PRN ×3 (06:34→17:30)
[2018-07-06] MEDS: Senna TAB PO SCH (07:55)
[2018-07-06] MEDS: Docusate CAP* 100 MG PO SCH ×2 (07:55→20:50)
[2018-07-06] MEDS: Heparin VIAL(*) 5000 UNITS/ML VIAL (FIVE THOUSAND) SUBCUT SCH ×2 (07:55→20:50)
[2018-07-06] MEDS: Methadone TAB* 10 MG PO SCH ×3 (07:59→21:04)
[2018-07-06] MEDS: Gabapentin CAP(*) 300 MG PO SCH ×3 (07:59→21:05)
--- NOTE | 2018-07-06 09:38 | PN ---
Subjective Date of Service: 07/06/18 Interval History: "My foot hurts all the time." No bowel c/o. No subj change. Objective Active Medications: Acetaminophen (Tylenol Tab*) 975 mg PO Q8H [facility] Last Admin: 07/06/18 01:34 Dose: Not Given Docusate Sodium (Colace Cap*) 100 mg PO BID [facility] Last Admin: 07/06/18 07:55 Dose: Not Given Gabapentin (Neurontin Cap(*)) 300 mg PO TID [facility] Last Admin: 07/06/18 07:59 Dose: 300 mg Heparin Sodium (Porcine) (Heparin Vial(*)) 5,000 units SUBCUT Q12HR [facility] Last Admin: 07/06/18 07:55 Dose: Not Given Hydroxyzine HCl (Atarax Tab*) 25 mg PO Q6H PRN PRN Reason: ANXIETY Last Admin: 07/06/18 03:05 Dose: 25 mg Metronidazole/Sodium Chloride (Flagyl 500 Mg Ivpb*) 500 mg in 100 mls @ 100 mls /hr IVPB 0000,1200 [facility] Last Admin: 07/05/18 23:52 Dose: 100 mls/hr Ceftriaxone Sodium 1 gm/ (Sodium Chloride) 50 mls @ 200 mls/hr IVPB Q24H [facility] Last Admin: 07/05/18 15:14 Dose: 200 mls/hr Magnesium Oxide (Magox 400 Tab*) 400 mg PO DAILY [facility] Methadone HCl (Dolophine Tab*) 10 mg PO TID [facility] Last Admin: 07/06/18 07:59 Dose: 10 mg Morphine Sulfate (Morphine Inj ((Syringe))*) 2 mg IV Q2H PRN PRN Reason: PAIN - BREAKTHROUGH Last Admin: 07/06/18 07:58 Dose: 2 mg Nicotine (Nicotine Inhaler*) 10 mg INH Q2H PRN PRN Reason: CRAVING Nicotine (Nicotine Patch 21 Mg/24 Hr*) 1 patch TRANSDERM DAILY [facility] Last Admin: 07/05/18 08:37 Dose: 1 patch Oxycodone HCl (Roxycodone Tab*) 5 mg PO Q4H PRN PRN Reason: PAIN - MODERATE Last Admin: 07/05/18 20:07 Dose: 5 mg Oxycodone HCl (Roxycodone Tab*) 10 mg PO Q4H PRN PRN Reason: PAIN - SEVERE Last Admin: 07/06/18 06:34 Dose: 10 mg Oxymetazoline HCl (Afrin 0.05% Nasal [place]*) 2 spray BOTH NARES BID [facility] Stop: 07/07/18 20:59 Last Admin: 07/05/18 20:25 Dose: Not Given Pharmacy Profile Note (Nicotine Patch Removal Note*) 1 note PATCH OFF 2100 [facility] Last Admin: 07/05/18 21:20 Dose: 1 note Prochlorperazine (Compazine Tab*) 10 mg PO Q8HR PRN PRN Reason: NAUSEA Senna (Senokot Tab*) 1 tab PO DAILY [facility] Last Admin: 07/06/18 07:55 Dose: Not Given Vital Signs - 8 hr 07/06/18 07/06/18 07/06/18 03:00 03:56 06:34 Temperature Pulse Rate Respiratory 18 16 18 Rate Blood Pressure (mmHg) O2 Sat by Pulse Oximetry 07/06/18 07/06/18 07/06/18 07:43 07:58 07:59 Temperature 97.5 F Pulse Rate 94 Respiratory 16 16 16 Rate Blood Pressure 109/73 (mmHg) O2 Sat by Pulse 99 Oximetry Oxygen Devices in Use Now: None Appearance: Alert, sitting up in bed. In fair spirits. Looks comfortable. Eyes: No Scleral Icterus Extremities: No Edema, No Clubbing, Cyanosis, - - L foot bandaged. Skin: No Rash or Ulcers, No Nodules or Sclerosis, - Neurological: Alert and Oriented x 3, NL Sensation Result Diagrams: 07/04/18 09:33 07/04/18 09:33 Microbiology and Other Data: Microbiology 06/28/18 15:57 Aerobic Blood Culture - Preliminary Blood Venous No Growth Day 2 Anaerobic Blood Culture - Preliminary No Growth Day 2 06/28/18 14:27 Urine Culture - Final Urine Escherichia Coli Normal [place] Assess/Plan/Problems-Billing Assessment: - Patient Problems (1) Abscess of left foot Current Visit: No Status: Acute Code(s): L02.612 - CUTANEOUS ABSCESS OF LEFT FOOT SNOMED Code(s): 176670647 Comment: WoundVac applied 07/03 after debridement. Continue ceftri/metro per Dr. Pyle. Note consistently afebrile, nl WBC. May repeat CRP in a few days. (2) IV drug abuse Current Visit: No Status: Acute Code(s): F19.10 - OTHER PSYCHOACTIVE SUBSTANCE ABUSE, UNCOMPLICATED SNOMED Code(s): 845037125 Comment: Difficult to assess her level of pain. I would expect much less wound pain since debridement and IV antibiotics. No changes in methadone, MS, oxycodone 07/06/18. (3) Bipolar disorder Current Visit: Yes Status: Acute Comment: Appears compensated as of 07/06. Hydroxyzine PRN. (4) Tobacco abuse Current Visit: No Status: Acute Code(s): Z72.0 - TOBACCO USE SNOMED Code(s ): 777830792 Comment: Pt advised to quit smoking and avoid second hand smoke. Continue NRT. Status and Disposition: -Pt scheduled for wound-vac change on Saturday -member services coordinator working on wound vac needs and equipment that is expected to be approved on Saturday and will defer
[2018-07-06] MEDS: Nicotine PATCH 21 MG/24 HR* PATCH TRANSDERM SCH (12:07)
[2018-07-06] MEDS: Oxymetazoline 0.05% NASAL SPR* 15 ML BTL BOTH NARES SCH ×2 (12:42→20:50)
[2018-07-06] MEDS: metroNIDAZOLE IV 500 MG/100ML* 500 MG/100 ML BAG IVPB SCH (12:45)
[2018-07-06] MEDS: Magnesium Oxide TAB* 400 MG PO SCH (12:46)
[2018-07-06] MEDS: cefTRIAXone(*) 1 GM in NS 0.9% 50 ML* 50 ML IVPB SCH (17:29)
[2018-07-06] MEDS: Nicotine Patch Removal NOTE PATCH OFF SCH (21:13)
[2018-07-07] MEDS: metroNIDAZOLE IV 500 MG/100ML* 500 MG/100 ML BAG IVPB SCH ×3 (00:15→23:29)
[2018-07-07] MEDS: Morphine INJ* 2 MG/ML 1 ML SYRINGE (TWO MG - NEW SYRINGE VERSION) IV PRN ×8 (00:16→23:36)
[2018-07-07] MEDS: Acetaminophen TAB* 325 MG PO SCH ×4 (02:37→20:06)
[2018-07-07] MEDS: oxyCODONE TAB* 5 MG TAB PO PRN ×4 (03:04→20:29)
[2018-07-07] MEDS: Senna TAB PO SCH (07:57)
[2018-07-07] MEDS: Heparin VIAL(*) 5000 UNITS/ML VIAL (FIVE THOUSAND) SUBCUT SCH ×2 (07:57→19:30)
[2018-07-07] MEDS: Docusate CAP* 100 MG PO SCH ×2 (07:57→19:30)
--- NOTE | 2018-07-07 08:36 | PN ---
Subjective Date of Service: 07/07/18 Interval History: "My foot hurts terrbilly." No bowel c/o. Appetite OK. Objective Active Medications: Acetaminophen (Tylenol Tab*) [address] [facility] Last Admin: 07/07/18 03:03 Dose: 975 mg Docusate Sodium (Colace Cap*) [address] [facility] Last Admin: 07/07/18 07:57 Dose: Not Given Gabapentin (Neurontin Cap(*)) [address] [facility] Last Admin: 07/06/18 21:05 Dose: 300 mg Heparin Sodium (Porcine) (Heparin Vial(*)) 5,[address] [facility] Last Admin: 07/07/18 07:57 Dose: Not Given Hydroxyzine HCl (Atarax Tab*) 25 mg PO Q6H PRN PRN Reason: ANXIETY Last Admin: 07/06/18 21:09 Dose: 25 mg Metronidazole/Sodium Chloride (Flagyl 500 Mg Ivpb*) 500 mg in 100 mls @ 100 mls /hr IVPB 0000,1200 [facility] Last Admin: 07/07/18 00:15 Dose: 100 mls/hr Ceftriaxone Sodium 1 gm/ (Sodium Chloride) 50 mls @ 200 mls/hr IVPB Q24H [facility] Last Admin: 07/06/18 17:29 Dose: 200 mls/hr Magnesium Oxide (Magox 400 Tab*) [address] [facility] Last Admin: 07/06/18 12:46 Dose: 400 mg Methadone HCl (Dolophine Tab*) [address] [facility] Last Admin: 07/06/18 21:04 Dose: 10 mg Morphine Sulfate (Morphine Inj ((Syringe))*) 2 mg IV Q2H PRN PRN Reason: PAIN - BREAKTHROUGH Last Admin: 07/07/18 06:23 Dose: 2 mg Nicotine (Nicotine Inhaler*) 10 mg INH Q2H PRN PRN Reason: CRAVING Nicotine (Nicotine Patch 21 Mg/24 Hr*) [address] [facility] Last Admin: 07/06/18 12:07 Dose: 1 patch Oxycodone HCl (Roxycodone Tab*) 5 mg PO Q4H PRN PRN Reason: PAIN - MODERATE Last Admin: 07/05/18 20:07 Dose: 5 mg Oxycodone HCl (Roxycodone Tab*) 10 mg PO Q4H PRN PRN Reason: PAIN - SEVERE Last Admin: 07/07/18 03:04 Dose: 10 mg Oxymetazoline HCl (Afrin 0.05% Nasal [place]*) [address] BID [facility] Stop: 07/07/18 20:59 Last Admin: 07/06/18 20:50 Dose: Not Given Pharmacy Profile Note (Nicotine Patch Removal Note*) 1 note PATCH OFF 2100 [facility] Last Admin: 07/06/18 21:13 Dose: 1 note Prochlorperazine (Compazine Tab*) 10 mg PO Q8HR PRN PRN Reason: NAUSEA Senna (Senokot Tab*) [address] [facility] Last Admin: 07/07/18 07:57 Dose: Not Given Vital Signs - 8 hr 07/07/18 07/07/18 07/07/18 01:37 03:04 03:17 Temperature 98.1 F Pulse Rate 90 Respiratory 16 18 17 Rate Blood Pressure 119/78 (mmHg) O2 Sat by Pulse 94 Oximetry 07/07/18 07/07/18 04:54 06:23 Temperature Pulse Rate Respiratory 16 19 Rate Blood Pressure (mmHg) O2 Sat by Pulse Oximetry Oxygen Devices in Use Now: None Appearance: Alert, sitting up in bed. In fair spirits. Looks comfortable. Eyes: No Scleral Icterus Extremities: No Edema, No Clubbing, Cyanosis, - - L foot bandaged. Skin: No Rash or Ulcers, No Nodules or Sclerosis, - Neurological: Alert and Oriented x 3, NL Sensation Result Diagrams: 07/04/18 09:33 07/04/18 09:33 Microbiology and Other Data: Microbiology 06/28/18 15:57 Aerobic Blood Culture - Preliminary Blood Venous No Growth Day 2 Anaerobic Blood Culture - Preliminary No Growth Day 2 06/28/18 14:27 Urine Culture - Final Urine Escherichia Coli Normal [place] Assess/Plan/Problems-Billing Assessment: - Patient Problems (1) Abscess of left foot Current Visit: No Status: Acute Code(s): L02.612 - CUTANEOUS ABSCESS OF LEFT FOOT SNOMED Code(s): 472239116 Comment: WoundVac applied 07/03 after debridement. Continue ceftri/metro per Dr. Pyle. Note consistently afebrile, nl WBC. Repeat CRP, CBC 07/08. (2) IV drug abuse Current Visit: No Status: Acute Code(s): F19.10 - OTHER PSYCHOACTIVE SUBSTANCE ABUSE, UNCOMPLICATED SNOMED Code(s): 905082997 Comment: Difficult to assess her level of pain. I would expect much less wound pain since debridement and IV antibiotics. No changes in methadone, MS, oxycodone 07/06/18. (3) Bipolar disorder Current Visit: Yes Status: Acute Comment: Appears compensated as of 07/07. Hydroxyzine PRN. (4) Tobacco abuse Current Visit: No Status: Acute Code(s): Z72.0 - TOBACCO USE SNOMED Code(s ): 888829826 Comment: Pt advised to quit smoking and avoid second hand smoke. Continue NRT. Status and Disposition: -Pt scheduled for wound-vac change on Saturday -manager financial services working on wound vac needs and equipment that is expected to be approved on Saturday and will defer
[2018-07-07] MEDS: Gabapentin CAP(*) 300 MG PO SCH ×3 (10:32→20:25)
[2018-07-07] MEDS: Methadone TAB* 10 MG PO SCH ×3 (10:32→20:26)
[2018-07-07] MEDS: Nicotine PATCH 21 MG/24 HR* PATCH TRANSDERM SCH (10:33)
[2018-07-07] MEDS: Magnesium Oxide TAB* 400 MG PO SCH (10:33)
[2018-07-07] MEDS: hydrOXYzine HCL TAB* 25 MG PO PRN ×2 (11:19→20:25)
[2018-07-07] MEDS: Oxymetazoline 0.05% NASAL SPR* 15 ML BTL BOTH NARES SCH (12:19)
[2018-07-07] MEDS: cefTRIAXone(*) 1 GM in NS 0.9% 50 ML* 50 ML IVPB SCH (15:30)
[2018-07-07] MEDS: Nicotine Patch Removal NOTE PATCH OFF SCH (20:27)
--- NOTE | 2018-07-07 21:26 | PN ---
Progress Note - Progress Note Date of Service: 07/07/18 SOAP: Subjective: Pt seen and examined at bedside. Complains of left foot pain. No complaint otherwise. Denies cp, SOB, F/C. Vital Signs: Temp Pulse Resp BP Pulse Ox 98.4 F 86 18 126/72 98 07/07/18 16:38 07/07/18 16:38 07/07/18 20:29 07/07/18 16:38 07/07/18 16:38 Laboratory Last Values WBC 5.2 10^3/ul (3.5-10.8) 07/04/18 09:33 RBC 4.43 10^6/ul (4.00-5.40) 07/04/18 09:33 Hgb 12.7 g/dl (12.0-16.0) 07/04/18 09:33 Hct 38 % (35-47) 07/04/18 09:33 MCV 86 fL (80-97) 07/04/18 09:33 MCH 29 pg (27-31) 07/04/18 09:33 MCHC 34 g/dl (31-36) 07/04/18 09:33 RDW 15 % (10.5-15) 07/04/18 09:33 Plt Count 320 10^3/ul (150-450) 07/04/18 09:33 MPV 8.8 um3 (7.4-10.4) 07/04/18 09:33 Neut % (Auto) 27.7 % (38-83) L 07/04/18 09:33 Lymph % (Auto) 54.2 % (25-47) H 07/04/18 09:33 [place] % (Auto) 5.5 % (0-7) 07/04/18 09:33 Eos % (Auto) 12.3 % (0-6) H 07/04/18 09:33 Baso % (Auto) 0.3 % (0-2) 07/04/18 09:33 Absolute Neuts (auto) 1.4 10^3/ul (1.5-7.7) L 07/04/18 09:33 Absolute Lymphs (auto) 2.8 10^3/ul (1.0-4.8) 07/04/18 09:33 Absolute Monos (auto) 0.3 10^3/ul (0-0.8) 07/04/18 09:33 Absolute Eos (auto) 0.6 10^3/ul (0-0.6) 07/04/18 09:33 Absolute Basos (auto) 0 10^3/ul (0-0.2) 07/04/18 09:33 Absolute Nucleated RBC 0 10^3/ul 07/04/18 09:33 Nucleated RBC % 0.2 07/04/18 09:33 ESR 37 mm/Hr (0-14) H 07/01/18 09:40 INR (Anticoag Therapy) 0.86 (0.77-1.02) 07/04/18 09:33 APTT 33.0 seconds (26.0-36.3) 07/04/18 09:33 Sodium 139 mmol/L (135-145) 07/04/18 09:33 Potassium 3.8 mmol/L (3.5-5.0) 07/04/18 09:33 Chloride 104 mmol/L (101-111) 07/04/18 09:33 Carbon Dioxide 28 mmol/L (22-32) 07/04/18 09:33 Anion Gap 7 mmol/L (2-11) 07/04/18 09:33 BUN 5 mg/dL (6-24) L 07/04/18 09:33 Creatinine 0.60 mg/dL (0.51-0.95) 07/04/18 09:33 Est GFR ( Amer) 139.3 (>60) 07/04/18 09:33 Est GFR (Non-Af Amer) 115.1 (>60) 07/04/18 09:33 BUN/Creatinine Ratio 8.3 (8-20) 07/04/18 09:33 Glucose 102 mg/dL (70-100) H 07/04/18 09:33 Lactic Acid 0.8 mmol/L (0.5-2.0) 06/28/18 15:57 Calcium 9.2 mg/dL (8.6-10.3) 07/04/18 09:33 Phosphorus 5.5 mg/dL (2.5-5.0) H 07/03/18 06:20 Magnesium 1.8 mg/dL (1.9-2.7) L 07/05/18 05:58 Total Bilirubin 0.20 mg/dL (0.2-1.0) 07/03/18 06:20 AST 32 U/L (13-39) 07/03/18 06:20 ALT 22 U/L (7-52) 07/03/18 06:20 Alkaline Phosphatase 118 U/L (34-104) H 07/03/18 06:20 C-Reactive Protein 20.18 mg/L (<8.01) H 07/01/18 09:40 Total Protein 7.0 g/dL (6.4-8.9) 07/03/18 06:20 Albumin 3.5 g/dL (3.2-5.2) 07/03/18 06:20 Globulin 3.5 g/dL (2-4) 07/03/18 06:20 Albumin/Globulin Ratio 1.0 (1-3) 07/03/18 06:20 Urine Color Yellow 07/05/18 05:25 Urine Appearance Clear 07/05/18 05:25 Urine pH 6.0 (5-9) 07/05/18 05:25 Ur Specific [place] 1.010 (1.010-1.030) 07/05/18 05:25 Urine Protein Negative (Negative) 07/05/18 05:25 Urine Ketones Negative (Negative) 07/05/18 05:25 Urine Blood 3+ (Negative) A 07/05/18 05:25 Urine Nitrate Negative (Negative) 07/05/18 05:25 Urine Bilirubin Negative (Negative) 07/05/18 05:25 Urine Urobilinogen Negative (Negative) 07/05/18 05:25 Ur Leukocyte Esterase Trace (Negative) A 07/05/18 05:25 Urine WBC (Auto) Trace(0-5/hpf) (Absent) 07/05/18 05:25 Urine RBC (Auto) 3+(>10/hpf) (Absent) A 07/05/18 05:25 Ur Squamous Epith Cells Present (Absent) A 07/05/18 05:25 Urine Bacteria Absent (Absent) 07/05/18 05:25 Hyaline Casts Present (Absent) A 06/28/18 14:27 Urine Yeast Present (Absent) A 06/28/18 14:27 Urine Glucose Negative (Negative) 07/05/18 05:25 Urine Opiates Screen None detected (None Detect) 07/03/18 00:14 Ur Barbiturates Screen None detected (None Detect) 07/03/18 00:14 Ur Phencyclidine Scrn None detected (None Detect) 07/03/18 00:14 Ur Amphetamines Screen None detected (None Detect) 07/03/18 00:14 U Benzodiazepines Scrn None detected (None Detect) 07/03/18 00:14 Urine Cocaine Screen None detected (None Detect) 07/03/18 00:14 U Cannabinoids Screen None detected (None Detect) 07/03/18 00:14 Hepatitis C Antibody High reactive (Nonreactive) A 07/01/18 09:40 HIV 1&2 Antibody Nonreactive (Nonreactive) 07/01/18 09:40 Objective: Dressing C/D/I. Wound vac intact. Calves soft, nontender. No erythema or edema. Assessment: s/p Left foot I&D with wound vac placement Plan: OOB WBAT Pain Control Wound vac change tomorrow
[2018-07-08] MEDS: oxyCODONE TAB* 5 MG TAB PO PRN ×2 (00:51→09:55)
[2018-07-08] MEDS: Acetaminophen TAB* 325 MG PO SCH ×2 (01:53→10:46)
[2018-07-08] MEDS: hydrOXYzine HCL TAB* 25 MG PO PRN ×2 (02:33→08:03)
[2018-07-08] MEDS: Morphine INJ* 2 MG/ML 1 ML SYRINGE (TWO MG - NEW SYRINGE VERSION) IV PRN ×5 (02:33→15:30)
[2018-07-08] MEDS: Heparin VIAL(*) 5000 UNITS/ML VIAL (FIVE THOUSAND) SUBCUT SCH (07:56)
[2018-07-08] MEDS: Docusate CAP* 100 MG PO SCH (07:56)
[2018-07-08] MEDS: Senna TAB PO SCH (07:56)
[2018-07-08] MEDS: Nicotine PATCH 21 MG/24 HR* PATCH TRANSDERM SCH (08:00)
[2018-07-08] MEDS: Gabapentin CAP(*) 300 MG PO SCH ×2 (08:02→15:29)
[2018-07-08] MEDS: Magnesium Oxide TAB* 400 MG PO SCH (08:03)
[2018-07-08] MEDS ORDERED: Lidocaine 1% INJ* 10 MG/ML 30 ML SDV INJ ONE (08:54)
--- NOTE | 2018-07-08 09:48 | PN ---
Subjective Date of Service: 07/08/18 Interval History: "It (left foot) hurts bad." Objective Active Medications: Acetaminophen (Tylenol Tab*) 975 mg PO Q8H [facility] Last Admin: 07/08/18 01:53 Dose: Not Given Docusate Sodium (Colace Cap*) 100 mg PO BID [facility] Last Admin: 07/08/18 07:56 Dose: Not Given Gabapentin (Neurontin Cap(*)) 300 mg PO TID [facility] Last Admin: 07/08/18 08:02 Dose: 300 mg Heparin Sodium (Porcine) (Heparin Vial(*)) 5,000 units SUBCUT Q12HR [facility] Last Admin: 07/08/18 07:56 Dose: Not Given Hydroxyzine HCl (Atarax Tab*) 25 mg PO Q6H PRN PRN Reason: ANXIETY Last Admin: 07/08/18 08:03 Dose: 25 mg Ceftriaxone Sodium 1 gm/ (Sodium Chloride) 50 mls @ 200 mls/hr IVPB Q24H [facility] Last Admin: 07/07/18 15:30 Dose: 200 mls/hr Magnesium Oxide (Magox 400 Tab*) 400 mg PO DAILY [facility] Last Admin: 07/08/18 08:03 Dose: 400 mg Methadone HCl (Dolophine Tab*) 10 mg PO TID [facility] Metronidazole (Flagyl Tab*) 500 mg PO TID [facility] Morphine Sulfate (Morphine Inj ((Syringe))*) 2 mg IV Q2H PRN PRN Reason: PAIN - BREAKTHROUGH Last Admin: 07/08/18 08:02 Dose: 2 mg Nicotine (Nicotine Inhaler*) 10 mg INH Q2H PRN PRN Reason: CRAVING Nicotine (Nicotine Patch 21 Mg/24 Hr*) 1 patch TRANSDERM DAILY [facility] Last Admin: 07/08/18 08:00 Dose: 1 patch Oxycodone HCl (Roxycodone Tab*) 5 mg PO Q4H PRN PRN Reason: PAIN - MODERATE Last Admin: 07/05/18 20:07 Dose: 5 mg Oxycodone HCl (Roxycodone Tab*) 10 mg PO Q4H PRN PRN Reason: PAIN - SEVERE Last Admin: 07/08/18 00:51 Dose: 10 mg Pharmacy Profile Note (Nicotine Patch Removal Note*) 1 note PATCH OFF 2100 [facility] Last Admin: 07/07/18 20:27 Dose: 1 note Prochlorperazine (Compazine Tab*) 10 mg PO Q8HR PRN PRN Reason: NAUSEA Senna (Senokot Tab*) 1 tab PO DAILY [facility] Last Admin: 07/08/18 07:56 Dose: Not Given Vital Signs - 8 hr 07/08/18 07/08/18 07/08/18 02:33 03:40 03:44 Temperature 98.1 F Pulse Rate 93 Respiratory 17 16 15 Rate Blood Pressure 103/43 (mmHg) O2 Sat by Pulse 98 Oximetry 07/08/18 07/08/18 07/08/18 03:45 07:39 08:00 Temperature 97.9 F Pulse Rate 85 Respiratory 16 18 20 Rate Blood Pressure 108/76 (mmHg) O2 Sat by Pulse 98 Oximetry 07/08/18 08:02 Temperature Pulse Rate Respiratory 20 Rate Blood Pressure (mmHg) O2 Sat by Pulse Oximetry Oxygen Devices in Use Now: None Appearance: Alert, sitting up in bed. In fair spirits. Looks comfortable but somewhat hypomanic as before. Eyes: No Scleral Icterus Skin: No Nodules or Sclerosis, - - L foot WoundVac in place, no surrounding erythema. Most of dorsum of L foot purple-brown. Neurological: Alert and Oriented x 3, NL Sensation Result Diagrams: 07/04/18 09:33 07/04/18 09:33 Microbiology and Other Data: Microbiology 06/28/18 15:57 Aerobic Blood Culture - Preliminary Blood Venous No Growth Day 2 Anaerobic Blood Culture - Preliminary No Growth Day 2 06/28/18 14:27 Urine Culture - Final Urine Escherichia Coli Normal [place] Assess/Plan/Problems-Billing Assessment: - Patient Problems (1) Abscess of left foot Current Visit: No Status: Acute Code(s): L02.612 - CUTANEOUS ABSCESS OF LEFT FOOT SNOMED Code(s): 730378755 Comment: WoundVac applied 07/03 after debridement. Continue ceftri/metro per Dr. Pyle. Note consistently afebrile, nl WBC. Repeat CRP, CBC 07/08. (2) IV drug abuse Current Visit: No Status: Acute Code(s): F19.10 - OTHER PSYCHOACTIVE SUBSTANCE ABUSE, UNCOMPLICATED SNOMED Code(s): 096441414 Comment: Difficult to assess her level of pain. I would expect much less wound pain since debridement and IV antibiotics. No changes in methadone, MS, oxycodone 07/06/18. (3) Bipolar disorder Current Visit: Yes Status: Acute Comment: Appears compensated as of 07/07. Hydroxyzine PRN. (4) Tobacco abuse Current Visit: No Status: Acute Code(s): Z72.0 - TOBACCO USE SNOMED Code(s ): 807873582 Comment: Pt advised to quit smoking and avoid second hand smoke. Continue NRT. Status and Disposition: -Pt scheduled for wound-vac change on Saturday -business services intern working on wound vac needs and equipment that is expected to be approved on Saturday and will defer
[2018-07-08] MEDS: Methadone TAB* 10 MG PO SCH ×2 (09:53→15:30)
[2018-07-08] MEDS ORDERED: metroNIDAZOLE TAB* 250 MG PO SCH (14:00)
--- NOTE | 2018-07-08 14:13 | PN ---
Progress Note - Progress Note Date of Service: 07/08/18 SOAP: Subjective: []Patient seen at bedside. Her left foot remains painful. She denies fever, chills. Objective: []General: NAD, well appearing LLE: Wound vac changed. Patient was very nervous and vocal during the procedure though she did tolerate the vac change well and confirms she will be able to tolerate this procedure every 3 days. 5cc 1% lidocaine was injected into the sponge prior to removal, patient was unsure if this increased comfort. The wound bed was primarily bleeding granulation tissue with roughly 10% of the area with slough. Minimal erythema surrounding the wound with no erythema tracking proximally. She is tender to gentle palpation surrounding the wound. Able to wiggle toes, sensation intact distally, cap refill less than two seconds distally. Assessment: s/p Left foot I&D with wound vac placement Plan: OOB WBAT Pain Control Wound vac change every 3 days by [facility] or wound clinic. Needs follow up with plastic surgery FU orthopedics next week with Dr Wolff Vital Signs Temp 98.1 F 07/08/18 11:16 Pulse 97 07/08/18 11:16 Resp 20 07/08/18 13:05 BP 118/74 07/08/18 11:16 Pulse Ox 99 07/08/18 11:16 Intake & Output 07/07/18 07/08/18 07/08/18 18:59 06:59 18:59 Intake Total 790 0 360 Balance 790 0 360 Intake: IVPB 110 ABX - FLAGYL 110 Oral 680 0 360 Other: Estimated Void Medium Large # Bowel Movements 0 # Voids 1 0 Laboratory Last Values WBC 5.2 10^3/ul (3.5-10.8) 07/04/18 09:33 RBC 4.43 10^6/ul (4.00-5.40) 07/04/18 09:33 Hgb 12.7 g/dl (12.0-16.0) 07/04/18 09:33 Hct 38 % (35-47) 07/04/18 09:33 MCV 86 fL (80-97) 07/04/18 09:33 MCH 29 pg (27-31) 07/04/18 09:33 MCHC 34 g/dl (31-36) 07/04/18 09:33 RDW 15 % (10.5-15) 07/04/18 09:33 Plt Count 320 10^3/ul (150-450) 07/04/18 09:33 MPV 8.8 um3 (7.4-10.4) 07/04/18 09:33 Neut % (Auto) 27.7 % (38-83) L 07/04/18 09:33 Lymph % (Auto) 54.2 % (25-47) H 07/04/18 09:33 [place] % (Auto) 5.5 % (0-7) 07/04/18 09:33 Eos % (Auto) 12.3 % (0-6) H 07/04/18 09:33 Baso % (Auto) 0.3 % (0-2) 07/04/18 09:33 Absolute Neuts (auto) 1.4 10^3/ul (1.5-7.7) L 07/04/18 09:33 Absolute Lymphs (auto) 2.8 10^3/ul (1.0-4.8) 07/04/18 09:33 Absolute Monos (auto) 0.3 10^3/ul (0-0.8) 07/04/18 09:33 Absolute Eos (auto) 0.6 10^3/ul (0-0.6) 07/04/18 09:33 Absolute Basos (auto) 0 10^3/ul (0-0.2) 07/04/18 09:33 Absolute Nucleated RBC 0 10^3/ul 07/04/18 09:33 Nucleated RBC % 0.2 07/04/18 09:33 ESR 37 mm/Hr (0-14) H 07/01/18 09:40 INR (Anticoag Therapy) 0.86 (0.77-1.02) 07/04/18 09:33 APTT 33.0 seconds (26.0-36.3) 07/04/18 09:33 Sodium 139 mmol/L (135-145) 07/04/18 09:33 Potassium 3.8 mmol/L (3.5-5.0) 07/04/18 09:33 Chloride 104 mmol/L (101-111) 07/04/18 09:33 Carbon Dioxide 28 mmol/L (22-32) 07/04/18 09:33 Anion Gap 7 mmol/L (2-11) 07/04/18 09:33 BUN 5 mg/dL (6-24) L 07/04/18 09:33 Creatinine 0.60 mg/dL (0.51-0.95) 07/04/18 09:33 Est GFR ( Amer) 139.3 (>60) 07/04/18 09:33 Est GFR (Non-Af Amer) 115.1 (>60) 07/04/18 09:33 BUN/Creatinine Ratio 8.3 (8-20) 07/04/18 09:33 Glucose 102 mg/dL (70-100) H 07/04/18 09:33 Lactic Acid 0.8 mmol/L (0.5-2.0) 06/28/18 15:57 Calcium 9.2 mg/dL (8.6-10.3) 07/04/18 09:33 Phosphorus 5.5 mg/dL (2.5-5.0) H 07/03/18 06:20 Magnesium 1.8 mg/dL (1.9-2.7) L 07/05/18 05:58 Total Bilirubin 0.20 mg/dL (0.2-1.0) 07/03/18 06:20 AST 32 U/L (13-39) 07/03/18 06:20 ALT 22 U/L (7-52) 07/03/18 06:20 Alkaline Phosphatase 118 U/L (34-104) H 07/03/18 06:20 C-Reactive Protein 20.18 mg/L (<8.01) H 07/01/18 09:40 Total Protein 7.0 g/dL (6.4-8.9) 07/03/18 06:20 Albumin 3.5 g/dL (3.2-5.2) 07/03/18 06:20 Globulin 3.5 g/dL (2-4) 07/03/18 06:20 Albumin/Globulin Ratio 1.0 (1-3) 07/03/18 06:20 Urine Color Yellow 07/05/18 05:25 Urine Appearance Clear 07/05/18 05:25 Urine pH 6.0 (5-9) 07/05/18 05:25 Ur Specific [place] 1.010 (1.010-1.030) 07/05/18 05:25 Urine Protein Negative (Negative) 07/05/18 05:25 Urine Ketones Negative (Negative) 07/05/18 05:25 Urine Blood 3+ (Negative) A 07/05/18 05:25 Urine Nitrate Negative (Negative) 07/05/18 05:25 Urine Bilirubin Negative (Negative) 07/05/18 05:25 Urine Urobilinogen Negative (Negative) 07/05/18 05:25 Ur Leukocyte Esterase Trace (Negative) A 07/05/18 05:25 Urine WBC (Auto) Trace(0-5/hpf) (Absent) 07/05/18 05:25 Urine RBC (Auto) 3+(>10/hpf) (Absent) A 07/05/18 05:25 Ur Squamous Epith Cells Present (Absent) A 07/05/18 05:25 Urine Bacteria Absent (Absent) 07/05/18 05:25 Hyaline Casts Present (Absent) A 06/28/18 14:27 Urine Yeast Present (Absent) A 06/28/18 14:27 Urine Glucose Negative (Negative) 07/05/18 05:25 Urine Opiates Screen None detected (None Detect) 07/03/18 00:14 Ur Barbiturates Screen None detected (None Detect) 07/03/18 00:14 Ur Phencyclidine Scrn None detected (None Detect) 07/03/18 00:14 Ur Amphetamines Screen None detected (None Detect) 07/03/18 00:14 U Benzodiazepines Scrn None detected (None Detect) 07/03/18 00:14 Urine Cocaine Screen None detected (None Detect) 07/03/18 00:14 U Cannabinoids Screen None detected (None Detect) 07/03/18 00:14 Hepatitis C Antibody High reactive (Nonreactive) A 07/01/18 09:40 HIV 1&2 Antibody Nonreactive (Nonreactive) 07/01/18 09:40
[2018-07-08] MEDS: cefTRIAXone(*) 1 GM in NS 0.9% 50 ML* 50 ML IVPB SCH (15:29)
--- NOTE | 2018-07-08 15:46 | PN ---
Progress Note - Progress Note Date of Service: 07/08/18 Note: Time spent on discharge 40 minutes, including exam of patient, discussion with patient, CM, nurse, orthopedic ISAC Burton, review of EMR and preparation of discharge documents.
--- NOTE | 2018-07-08 15:48 | PN ---
"Progress Note - Progress Note Date of Service: 07/08/18 Note: Search Terms: nilton ayoub, 1985 Search Date: 07/08/2018 03:47:35 PM The Drug Utilization Report below displays all of the controlled substance prescriptions, if any, that your patient has filled in the last twelve months. The information displayed on this report is compiled from pharmacy submissions to the Department, and accurately reflects the information as submitted by the pharmacies. This report was requested by: Farhan Yao | Reference #: [id number] Others' Prescriptions Patient Name: Nilton Ayoub Date: 1985 Address: [address] [place] [id number] Sex: Female Rx Written Rx Dispensed Drug Quantity Days Supply Prescriber Name 06/22/2018 06/22/2018 methadone hcl 5 mg tablet 15 5 Stefany Lucas"
[2018-07-08 16:14] VITALS: BP 115/57
--- NOTE | 2018-07-08 23:24 | DS ---
CC: Dr. Wolff; Dr. Roni Means, [facility]; Dr. Barrett * DISCHARGE SUMMARY: DATE OF ADMISSION: DATE OF DISCHARGE: 07/08/18 HOSPITAL COURSE: This 33-year-old woman presented with redness, swelling and pain in the left foot. She was recently hospitalized with an abscess of the left foot. She had debridement by Orthopedics, incision and drainage. She was placed on methadone for pain control. She was seen in consultation by Dr. Barrett. The patient had cellulitis of her left foot, there is no drainable collection. She had debridement by orthopedics, a wound VAC was placed. She was given ceftriaxone and metronidazole. At the time of discharge, there was very little evidence of infection. The patient is being referred for Plastic Surgery consultation as well to see if wound closure can be sped up with the plastic surgery procedure. She will have her wound VAC changed twice a week. She will go to the [facility] for primary care and could also follow up with Dr. Barrett at the pain clinic per discretion of the very primary care provider. FINAL DIAGNOSES: 1. Left foot open wound. 2. History of IV drug abuse. 3. Bipolar disorder. 4. Tobacco abuse. DISCHARGE MEDICATIONS: 1. Nicotine patch 14 mg per day. 2. Gabapentin 300 mg t.i.d. 3. Hydroxyzine 25 mg every 6 hours p.r.n. 4. Magnesium oxide 400 mg daily. 5. Oxycodone 5 mg 1 every 4 hours p.r.n., maximum daily dose 3. 6. Prochlorperazine 10 mg every 8 hours p.r.n. nausea. 7. Methadone 5 mg t.i.d. [id number]/[facility] #: [id number] [facility]
== END 2018-07-08 17:00 | disposition home or self-care (01) | DRG 364 ==
LOC: ED 13:12 → MED 17:45
PROVIDERS: ADMIT Internal Medicine; ATTEND Internal Medicine
PROC: 2W1TX6Z Compression of Left Foot using Pressure Dressing (ICD-10-PCS; 2018-07-03)
PROC: 0KBW0ZZ Excision of Left Foot Muscle, Open Approach (ICD-10-PCS; principal; 2018-07-03 14:00)
DX: L03.116 Cellulitis of left lower limb (principal); L02.612 Cutaneous abscess of left foot; F31.9 Bipolar disorder, unspecified; F41.8 Other specified anxiety disorders; F19.10 Other psychoactive substance abuse, uncomplicated; F17.210 Nicotine dependence, cigarettes, uncomplicated; F40.00 Agoraphobia, unspecified; J34.89 Other specified disorders of nose and nasal sinuses; B19.20 Unspecified viral hepatitis C without hepatic coma; M60.872 Other myositis, left ankle and foot; Z82.49 Family history of ischemic heart disease and other diseases of the circulatory system; Z80.3 Family history of malignant neoplasm of breast
CPT/HCPCS: 36415; 80048; 80053; 80307; 81003; 81015; 81025; 83605; 83735; 84100; 85025; 85610; 85652; 85730; 86140; 86703; 86803; 87040; 87077; 87086; 87186; 99284; A9270-GY; J0690; J0692; J0696; J1644; J1885; J2060; J2250; J2270; J2704; J2795; J3010; J3370; J3475; J3490; Q0164

== ENCOUNTER 2021-03-07 13:13 | Inpatient (IN) ==
[2021-03-07] MEDS ORDERED: Glycerin ADULT 2.4 gm SUPP PR PRN (18:45)
[2021-03-07] MEDS ORDERED: Witch Hazel PAD JAR TOPICAL PRN (18:45)
[2021-03-07] MEDS ORDERED: Dibucaine 1% OINT 28.35 GM TUBE PR PRN (18:45)
[2021-03-07] MEDS ORDERED: Lactated Ringers 1000 ml BAG 1,000 ML IV SCH (19:00)
[2021-03-07] MEDS: Nicotine PATCH 7 MG/24 HR PATCH TRANSDERM SCH (19:28)
[2021-03-08 08:38] LABS: ABS Basophils 0.1 10^3/ul (0-0.2); ABS Eosinophils 0.1 10^3/ul (0-0.6); ABS Lymphocytes 2.7 10^3/ul (1.0-4.8); ABS Monocytes 0.6 10^3/ul (0-0.8); ABS Neutrophils 6.8 10^3/ul (1.5-7.7); Eosinophil % 1.2 %; Hematocrit 33 % (35-47); Hemoglobin 11.2 g/dL (12.0-16.0); Lymphocyte % 26.5 %; Mean Corpuscular HGB Conc 35 g/dL (31-36); Mean Corpuscular Hemoglobin 30 pg (27-31); Mean Corpuscular Volume 86 fL (80-97); Mean Platelet Volume 10.3 fL (7.4-10.4); Nucleated Red Blood Cells % 0.1; Platelet Count 231 10^3/uL (150-450); Red Cell Distribution Width 14 % (10-15); White Blood Count 10.3 10^3/uL (3.5-10.8)
[2021-03-08] MEDS: Buprenorphine 2 mg SL TAB PO SCH (09:39)
[2021-03-08] MEDS: Nicotine PATCH 7 MG/24 HR PATCH TRANSDERM SCH (09:56)
[2021-03-08] MEDS ORDERED: Nicotine PATCH 7 MG/24 HR PATCH TRANSDERM SCH (22:00)
[2021-03-09 07:44] VITALS: BP 126/71
[2021-03-09] MEDS: Buprenorphine 2 mg SL TAB PO SCH (08:44)
== END 2021-03-09 14:00 | disposition home or self-care (01) | DRG 561 ==
LOC: MCHOB 13:13
PROVIDERS: ADMIT Obstetrics & Gynecology; ATTEND Obstetrics & Gynecology